=== PATIENT | male | born 1985 | race Caucasian/White ===

== ENCOUNTER 2021-12-13 18:29 | Emergency (ER) | payer OTHER ==
--- OUTSIDE RECORDS SUMMARY | 2021-12-13 18:32 | XMS REPORT | Continuity of Care Document ---
:1985 Author Organization [facility] t Address [address] [place] [address] Care Team Providers Name Role Phone Asked, No Pcp Primary Care Physician Unavailable Citlaly Harrison Attending Clinician Unavailable Physician, No Primary or Family Admitting Clinician Unavaila Bari Bauman Admitting Clinician Unavailable Payers Payer Name Policy Type Policy Number Effective Date Expiration Date S ource Problems This patient has no known problems. Allergies, Adverse Reactions, Alerts Allergy Allergy Status Severity Reaction(s) Onset Inactive Treating Comm ents Source Name Type Date Date Clinician No Known DA Active U [facility] No Known DA Active [facility] No Known DA Active U 2017-04 [facility] No Known DA Active U 2017-04 [facility] No Known DA Active U [facility] Social History Social Habit Start Date Stop Date Quantity Comments Source History of tobacco Smokes tobacco [facility] daily [facility] Alcohol intake 2019-03-01 2019-03-01 Current drinker [facility] 00:00:00 00:00:00 of [facility] (finding) Cigarettes smoked 2017-09-07 2017-09-07 [facility] current (pack per 00:00:00 00:00:00 Hospita l day) - Reported Cigarette 2017-09-07 2017-09-07 [facility] pack-years 00:00:00 00:00:00 Hospital Tobacco use and 2017-09-07 2017-09-07 [facility]user [facility] Alcohol Comment 2017-09-07 2017-09-07 "occassionally" [facility] 00:00:00 00:00:00 Hospital Sex Assigned At [birth year] [facility] 00:00:00 00:00:00 Hospital Smoking Status Start Date Stop Date Source Smokes tobacco daily 2017-09-07 00:00:00 [facility] Medications Ordered Filled Start Stop Current Ordering Indication Dosage Frequency Signature Comments Components Source Medication Medication Date Date Medication? Clinician (SIG) Name Name No known 2018-04 No No known [facility] di medications 05-[address] 09:47: s [facility] Procedures This patient has no known procedures. Plan of Care Planned Activity Planned Date Details Comments Source Future Scheduled 2021-12-05 HEPATITIS B VACCINES Met [facility] Test 05:56:35 (1 of 3 - 3-dose series) [code = HEPATITIS B VACCINES (1 of 3 - 3-dose series)] Future Scheduled 2021-12-05 COVID-19 VACCINE (#1) [facility] Test 05:56:35 [code = COVID-19 VACCINE (#1)] Future Scheduled 2021-12-05 Pneumococcal Vaccine: [facility] Test 05:56:35 Pediatrics (0 to 5 Years) and At-Risk Patients (6 to 64 Years) (1 - PCV) [code = Pneumococcal Vaccine: Pediatrics (0 to 5 Years) and At-Risk Patients (6 to 64 Years) (1 - PCV)] Future Scheduled 2021-12-05 Hepatitis C screening [facility] Test 05:56:35 (procedure) [code = 810407102] Future Scheduled 2021-12-05 INFLUENZA VACCINE Method [facility] Test 05:56:35 [code = INFLUENZA VACCINE] Encounters Start End Encounter Admission Attending Care Care Encounter Source Date/Time Date/Time Type Type Clinicians Facility Department ID 2021-08-08 2021-08-08 Emergency EM DARBY Harrison JOHN [id number] [facility] 11:41:00 12:04:00 Cit[facility] 88 [facility] 2021-08-08 2021-08-08 Emergency EM DARBY Harrison [facility] [id number] [facility] 11:41:00 12:04:00 Citlaly [id number] [facility] 2019-11-01 2019-11-01 Inpatient [facility] JOHN [id number] [facility] 12:19:00 12:37:43 45 [facility] Results This patient has no known results.
[2021-12-13 19:36] LABS: Absolute Lymphocytes (CBC) 4.3 K/uL (0.7-4.9); Hematocrit 41.6 % (39.6-49.0); Lymphocytes % 35.5 % (15.3-44.8); MCV 83.6 fL (80-100); RBC Red Blood Cell Count 4.98 M/uL (4.33-5.43)
[2021-12-13 19:39] LABS: Urine Blood Negative (Negative); Urine Glucose Trace (Negative); Urine Protein Negative (Negative); Urine Specific Gravity >=1.030 (1.005-1.030)
[2021-12-13 19:53] LABS: Albumin 3.8 g/dL (3.4-5.0); Bilirubin Total 0.2 mg/dL (0.2-1.0); Potassium 3.8 mmol/L (3.5-5.1); Protein, Total 7.7 g/dL (6.4-8.2)
[2021-12-13 19:53] LABS: Urine Bacteria <20 /HPF (<20); Urine RBC <5 /HPF (None Seen)
[2021-12-13] MEDS ORDERED: KETOROLAC 30 MG/ML INJ ONE (20:16)
[2021-12-13] MEDS ORDERED: NA CHLORIDE 0.9% 1,000 ML ONE (20:16)
--- NOTE | 2021-12-13 21:59 | RAD REPORT ---
EXAM DESCRIPTION: CTAbdomen Pelvis W Contrast - 12/13/2021 9:42 pm CLINICAL HISTORY: Abdominal pain, acute, nonlocalized COMPARISON: No comparisons TECHNIQUE: CT of the abdomen and pelvis was performed. All CT scans are performed using dose optimization technique as appropriate and may include automated exposure control or mA/KV adjustment according to patient size. FINDINGS: Lower chest: No acute abnormality. Liver: No acute abnormality or suspicious lesions. Biliary: Cholecystectomy. Stomach: No significant focal abnormality. Duodenum: No significant focal abnormality. Pancreas: No significant abnormality. Spleen: No significant abnormality. Adrenal: No suspicious lesions. Kidney/ureter: No hydronephrosis. No renal calculi. Retroperitoneum: No retroperitoneal adenopathy. Vascular: No aneurysm. Bowel: No significant focal abnormality. Peritoneum: No ascites or free air. Bladder: Grossly unremarkable. Reproductive: No adnexal masses. Bones: No acute fracture. Other: n/a IMPRESSION: No acute intra-abdominal or pelvic finding. Normal appendix.
--- NOTE | 2021-12-13 22:04 | ER ---
Nurse's Notes [facility] Name: Arsalan Campbell Age: 36 yrs Sex: Male : 1985 Arrival Date: 12/13/2021 Time: 18:31 Bed 12 Private MD: Diagnosis: Abdominal pain, unspecified Presentation: 12/13 18:34 Chief complaint: Patient states: abdominal pain that started this morning, 5/ 10 pain. kr3 Coronavirus screen: Vaccine status: Patient reports being unvaccinated. Client denies travel out of the [place] in the last 14 days. Ebola Screen: Patient denies travel to an Ebola-affected area in the 21 days before illness onset. Initial Sepsis Screen: Does the patient meet any 2 criteria? No. Patient's initial sepsis screen is negative. Does the patient have a suspected source of infection? Yes: Acute abdominal pain. Risk Assessment: Do you want to hurt yourself or someone else? Patient reports no desire to harm self or others. Onset of symptoms was December 13, 2021. 18:34 Method Of Arrival: Ambulatory kr3 18:34 Acuity: BURKE 3 kr3 Triage Assessment: 18:38 General: Appears in no apparent distress. comfortable, Behavior is calm, cooperative, kr3 appropriate for age. Pain: Complains of pain in abdomen Pain currently is 5 out of 10 on a pain scale. Quality of pain is described as squeezing. 18:39 GI: Abdomen is round non-distended. kr3 Historical: - Allergies: 18:37 No Known Allergies; kr3 - PSHx: 18:37 Cholecystectomy; hernia repair; kr3 - Immunization history:: Adult Immunizations not up to date, Client reports having NOT received the Covid vaccine. - Social history:: Smoking status: Patient reports the use of cigarette tobacco products, smokes one pack cigarettes per day. Screenin:28 Abuse screen: Denies threats or abuse. Denies injuries from another. Nutritional hb screening: No deficits noted. Tuberculosis screening: No symptoms or risk factors identified. Fall Risk None identified. Assessment: 19:29 General: Appears in no apparent distress. Behavior is calm, cooperative. Pain: Pain hb currently is 8 out of 10 on a pain scale. Neuro: Level of Consciousness is awake, alert, obeys commands, Oriented to person, place, time, situation. Cardiovascular: Patient's skin is warm and dry. Respiratory: Respiratory effort is even, unlabored, Respiratory pattern is regular, symmetrical. GI: Reports upper abdominal pain, nausea. : No signs and/or symptoms were reported regarding the genitourinary system. EENT: No signs and/or symptoms were reported regarding the EENT system. Derm: Skin is pink, warm \T\ dry. Musculoskeletal: No signs and/or symptoms reported regarding the musculoskeletal system. 19:52 Reassessment: pt finished contrast CT notified. bb 21:02 Reassessment: Patient appears in no apparent distress at this time. Patient and/or hb family updated on plan of care and expected duration. Pain level reassessed. Patient is alert, oriented x 3, equal unlabored respirations, skin warm/dry/pink. 22:00 Reassessment: Patient appears in no apparent distress at this time. Patient and/or hb family updated on plan of care and expected duration. Pain level reassessed. Patient is alert, oriented x 3, equal unlabored respirations, skin warm/dry/pink. Vital Signs: 18:34 BP 153 / 98; Pulse 95; Resp 18; Temp 97.3; Pulse Ox 100% on R/A; Weight 102.06 kg; kr3 Height 5 ft. 6 in. (167.64 cm); Pain 5/10; 22:00 BP 148 / 80; Pulse 81; Resp 16; Pulse Ox 99% on R/A; hb 18:34 Body Mass Index 36.32 (102.06 kg, 167.64 cm) kr3 ED Course: 18:31 Patient arrived in ED. rg4 18:37 Triage completed. kr3 18:39 Arm band placed on right wrist. kr3 18:47 Romy Romero FNP-C is PHCP. snw 18:47 Francisco Roman MD is Attending Physician. snw 19:26 Inserted saline lock: 20 gauge in right antecubital area, using aseptic technique. hb Blood collected. 19:28 Patient has correct armband on for positive identification. hb 19:52 Nara Bell, VANESSA is Primary Nurse. bb 21:44 CT Abd/Pelvis - PO and IV Contrast In Process Unspecified. EDMS 22:28 No provider procedures requiring assistance completed. IV discontinued, intact, hb bleeding controlled, No redness/swelling at site. Administered Medications: 20:11 Drug: NS 0.9% 1000 ml Route: IV; Rate: 125 ml/hr; Site: right antecubital; bb 20:11 Drug: Ketorolac 15 mg Route: IVP; Site: right antecubital; bb Medication: 19:29 VIS not applicable for this client. hb Outcome: 22:03 Discharge ordered by MD. recinos 22:28 Discharged to home ambulatory. hb 22:28 Condition: stable 22:28 Discharge instructions given to patient, Instructed on discharge instructions, follow up and referral plans. medication usage, Demonstrated understanding of instructions, follow-up care, medications, Prescriptions given X 1. 22:31 Patient left the ED. Signatures: Dispatcher [employer] EDMS Romy Romero, TALENT ACQUISITION SOURCER-C TALENT ACQUISITION SOURCER-Csnw Nraa Bell RN RN Tanesha Iverson RN RN Tresa Mathews4 Gena Erwin RN RN kr3 Corrections: (The following items were deleted from the chart) 18:38 18:37 PSHx: Repair of inguinal hernia; kr3 kr3
--- NOTE | 2021-12-13 22:04 | EDPHYS ---
Physician Documentation [facility] Name: Arsalan Campbell Age: 36 yrs Sex: Male : 1985 Arrival Date: 12/13/2021 Time: 18:31 Bed 12 Private MD: ED Physician Francisco Roman HPI: 12/13 20:49 This 36 yrs old Male presents to ER via Ambulatory with complaints of Abdominal Pain. snw 20:49 The patient presents with abdominal pain in the periumbilical area. right lower snw quadrant. Onset: The symptoms/episode began/occurred gradually, 2 day(s) ago, and became worse and became persistent. The symptoms do not radiate. Associated signs and symptoms: none. The symptoms are described as "squeezing". Severity of pain: At its worst the pain was moderate. The patient has not experienced similar symptoms in the past. The patient has not recently seen a physician. Historical: - Allergies: 18:37 No Known Allergies; kr3 - PSHx: 18:37 Cholecystectomy; hernia repair; kr3 - Immunization history:: Adult Immunizations not up to date, Client reports having NOT received the Covid vaccine. - Social history:: Smoking status: Patient reports the use of cigarette tobacco products, smokes one pack cigarettes per day. ROS: 20:49 Constitutional: Negative for fever, chills, and weight loss, Eyes: Negative for injury, snw pain, redness, and discharge, ENT: Negative for injury, pain, and discharge, Neck: Negative for injury, pain, and swelling, Cardiovascular: Negative for chest pain, palpitations, and edema, Respiratory: Negative for shortness of breath, cough, wheezing, and pleuritic chest pain, Back: Negative for injury and pain, : Negative for injury, bleeding, discharge, and swelling, MS/Extremity: Negative for injury and deformity, Skin: Negative for injury, rash, and discoloration, Neuro: Negative for headache, weakness, numbness, tingling, and seizure, Psych: Negative for depression, anxiety, suicide ideation, homicidal ideation, and hallucinations. 20:49 Abdomen/GI: Positive for abdominal pain, Negative for nausea, vomiting, and diarrhea. Exam: 20:48 Constitutional: This is a well developed, well nourished patient who is awake, alert, snw and in no acute distress. Head/Face: Normocephalic, atraumatic. Eyes: Pupils equal round and reactive to light, extra-ocular motions intact. Lids and lashes normal. Conjunctiva and sclera are non-icteric and not injected. Cornea within normal limits. Periorbital areas with no swelling, redness, or edema. ENT: Nares patent. No nasal discharge, no septal abnormalities noted. Tympanic membranes are normal and external auditory canals are clear. Oropharynx with no redness, swelling, or masses, exudates, or evidence of obstruction, uvula midline. Mucous membranes moist. Neck: Trachea midline, no thyromegaly or masses palpated, and no cervical lymphadenopathy. Supple, full range of motion without nuchal rigidity, or vertebral point tenderness. No Meningismus. Chest/axilla: Normal chest wall appearance and motion. Nontender with no deformity. No lesions are appreciated. Cardiovascular: Regular rate and rhythm with a normal S1 and S2. No gallops, murmurs, or rubs. Normal PMI, no JVD. No pulse deficits. Respiratory: Lungs have equal breath sounds bilaterally, clear to auscultation and percussion. No rales, rhonchi or wheezes noted. No increased work of breathing, no retractions or nasal flaring. Back: No spinal tenderness. No costovertebral tenderness. Full range of motion. Skin: Warm, dry with normal turgor. Normal color with no rashes, no lesions, and no evidence of cellulitis. MS/ Extremity: Pulses equal, no cyanosis. Neurovascular intact. Full, normal range of motion. Neuro: Awake and alert, GCS 15, oriented to person, place, time, and situation. Cranial nerves II-XII grossly intact. Motor strength 5/5 in all extremities. Sensory grossly intact. Cerebellar exam normal. Normal gait. Psych: Awake, alert, with orientation to person, place and time. Behavior, mood, and affect are within normal limits. 20:48 Abdomen/GI: Inspection: abdomen appears normal, Bowel sounds: diminished, Palpation: moderate abdominal tenderness, in the right lower quadrant. Vital Signs: 18:34 BP 153 / 98; Pulse 95; Resp 18; Temp 97.3; Pulse Ox 100% on R/A; Weight 102.06 kg; kr3 Height 5 ft. 6 in. (167.64 cm); Pain 5/10; 22:00 BP 148 / 80; Pulse 81; Resp 16; Pulse Ox 99% on R/A; hb 18:34 Body Mass Index 36.32 (102.06 kg, 167.64 cm) kr3 MDM: 19:21 Patient medically screened. snw 22:01 Data reviewed: vital signs, nurses notes, lab test result(s), radiologic studies. Data snw interpreted: Pulse oximetry: on room air is 100 %. Interpretation: normal. Counseling: I had a detailed discussion with the patient and/or guardian regarding: the historical points, exam findings, and any diagnostic results supporting the discharge/admit diagnosis, the presence of at least one elevated blood pressure reading (>120/80) during this emergency department visit, lab results, radiology results, the need for outpatient follow up, for definitive care. Response to treatment: the patient's symptoms have mildly improved after treatment. Special discussion: Based on the history and exam findings, there is no indication for further emergent testing or inpatient evaluation. I discussed with the patient/guardian the need to see the primary care provider for further evaluation of the symptoms. 12/13 18:52 Order name: Urine Microscopic Only; Complete Time: 20:10 snw 12/13 18:52 Order name: CBC with Diff; Complete Time: 19:38 snw 12/13 18:52 Order name: CMP; Complete Time: 20: snw 12/13 18:52 Order name: Lipase; Complete Time: 20: snw 12/13 19:39 Order name: Urine Dipstick-Ancillary; Complete Time: 19:39 EDMS 12/13 18:52 Order name: Urine Dipstick-Ancillary (obtain specimen); Complete Time: 19:28 snw 12/13 18:52 Order name: IV Saline Lock; Complete Time: 19:28 snw 12/13 18:52 Order name: Labs collected and sent; Complete Time: 19:28 snw 12/13 19:39 Order name: CT Abd/Pelvis - PO and IV Contrast; Complete Time: 22:00 snw 12/13 19:57 Order name: Urine Culture EDMS Administered Medications: 20:11 Drug: NS 0.9% 1000 ml Route: IV; Rate: 125 ml/hr; Site: right antecubital; bb 20:11 Drug: Ketorolac 15 mg Route: IVP; Site: right antecubital; bb Disposition Summary: 12/13/21 22:03 Discharge Ordered Location: Home snw Condition: Stable snw Diagnosis - Abdominal pain, unspecified snw Followup: snw - With: Private Physician - When: 2 - 3 days - Reason: Recheck today's complaints, Continuance of care, Re-evaluation by your physician Followup: snw - With: Emergency Department - When: As needed - Reason: Worsening of condition Discharge Instructions: - Discharge Summary Sheet snw - Abdominal Pain, Adult snw - Pain Without a Known Cause snw - Gas and Gas Pains, Pediatric snw Forms: - Work release form snw - Medication Reconciliation Form snw - Thank You Letter snw - Antibiotic Education snw - Prescription Opioid Use snw Prescriptions: - dicyclomine 20 mg Oral Tablet - take 1 tablet by ORAL route 3 times per day; 21 tablet; Refills: 0, Product snw Selection Permitted Signatures: Dispatcher [employer] EDMS Romy Romero FNP-C GAS MAKER HELPER-Csnw Nara Bell, RN RN Gena Castellanos RN RN kr3 Corrections: (The following items were deleted from the chart) 18:38 18:37 PSHx: Repair of inguinal hernia; kr3 kr3
[2021-12-14 02:08] VITALS: TEMP 97.3
[2021-12-14 02:10] VITALS: BP 148/80; O2SAT 99
== END 2021-12-13 22:31 | disposition home or self-care (01) ==
LOC: ER 18:29
DX: R10.31 Right lower quadrant pain (principal); F17.210 Nicotine dependence, cigarettes, uncomplicated
CPT/HCPCS: 87088; 85025; 87086; 36415; 83690; 80053; 74177; 96374; 99284; Q9967; J7030; 81003; 81015

== ENCOUNTER 2022-03-04 17:11 | Emergency (ER) | payer OTHER ==
--- OUTSIDE RECORDS SUMMARY | 2022-03-04 17:13 | XMS REPORT | Continuity of Care Document ---
:1985 Author Organization [facility] t Address [address] [place] [address] Care Team Providers Name Role Phone Asked, [...] Date Clinician No Known DA Active U [facility] No Known DA Active [facility] No Known DA Active U 2017-04 [facility] No [facility] Social History Social Habit Start Date Stop Date Quantity Comments Source History of tobacco Cigarette Smoker [facility] Alcohol intake 2019-03-01 2019-03-01 Current drinker [facility] 00:00:00 00:00:00 [facility] alcohol Hospital (finding) Tobacco use and 2017-09-07 2017-09-07 Smokeless tobacco [facility] exposure 00:00:00 00:00:00 non-user Hospital Cigarettes smoked 2017-09-07 2017-[facility]-07 [facility]pack per 00:00:00 00:00:00 [facility]ospita l day) - Reported Cigarette 2017-09-07 2017-09-07 [facility] pack-years 00:00:00 00:00:00 Hospital Alcohol Comment 2017-09-07 2017-09-07 "occassionally" [facility] 00:00:00 00:00:00 Hospital Sex Assigned At [birth year] [facility] 00:00:00 00:00:00 Hospital Smoking Status Start Date Stop Date Source Smokes tobacco daily 2017-09-07 00:00:00 [facility] Medications Ordered Filled Start Stop Current Ordering Indication Dosage Frequency Signature Comments Components Source Medication Medication Date Date Medication? Clinician (SIG) Name Name No known 2018-04 No No known [facility] medications -[address] 09:47: s [facility] No known 2018-04 No No known [facility] medications -[address] 09:47: s [facility] Procedures This patient has no known procedures. Plan of Care Planned Activity Planned Date Details Comments Source Future Scheduled 2022-02-07 HEPATITIS B VACCINES Met [facility] Test 09:18:09 (1 of 3 - 3-dose series) [code = HEPATITIS B VACCINES (1 of 3 - 3-dose series)] Future Scheduled 2022-02-07 COVID-19 VACCINE (#1) [facility] Test 09:18:09 [code = COVID-19 VACCINE (#1)] Future Scheduled 2022-02-07 Pneumococcal Vaccine: [facility] Test 09:18:09 Pediatrics (0 to 5 Years) and At-Risk Patients (6 to 64 Years) (1 - PCV) [code = Pneumococcal Vaccine: Pediatrics (0 to 5 Years) and At-Risk Patients (6 to 64 Years) (1 - PCV)] Future Scheduled 2022-02-07 Hepatitis C screening [facility] Test 09:18:09 (procedure) [code = [id number]] Future Scheduled 2022-02-07 INFLUENZA VACCINE Method [facility] Test 09:18:09 [code = INFLUENZA VACCINE] Future Scheduled 2021-12-05 HEPATITIS B VACCINES Met [facility] Test 05:56:35 (1 of 3 - 3-dose series) [code = HEPATITIS B VACCINES (1 of 3 - 3-dose series)] Future Scheduled 2021-12-05 COVID-19 VACCINE (#1) [facility] Test 05:56:35 [code = COVID-19 VACCINE (#1)] Future Scheduled 2021-12-05 Pneumococcal Vaccine: [facility] Test 05:56:35 Pediatrics (0 to 5 Years) and At-Risk Patients (6 to 64 Years) (1 - PCV) [code = Pneumococcal Vaccine: Pediatrics (0 to 5 Years) and At-Risk Patients (6 to 64 Years) (1 - PCV)] Future Scheduled 2021-12-05 Hepatitis C screening [facility] Test 05:56:35 (procedure) [code = [id number]] Future Scheduled 2021-12-05 INFLUENZA VACCINE Method [facility] Test 05:56:35 [code = INFLUENZA VACCINE] Encounters Start End Encounter Admission Attending Care Care Encounter Source Date/Time Date/Time Type Type Clinicians Facility Department ID 2021-08-08 2021-08-08 Emergency MIRTHA Harrison DARBY LOPEZ [id number] [facility] 11:41:00 12:04:00 Cit[facility] 88 [facility] 2021-08-08 2021-08-08 Emergency MIRTHA Harrison [facility] [id number] [facility] 11:41:00 12:04:00 Citlaly [id number] [facility] 2019-11-01 2019-11-01 Inpatient [facility] JOHN [id number] [facility] 12:19:00 12:37:43 45 [facility] Results This patient has no known results.
--- NOTE | 2022-03-04 17:29 | ER ---
Nurse's Notes [facility] Name: Arsalan Campbell Age: 36 yrs Sex: Male : 1985 Arrival Date: 03/04/2022 Time: 17:11 Bed 12 Private MD: Diagnosis: Dental caries, unspecified Presentation: 03/04 17:16 Chief complaint: Patient states: Bilateral tooth pains: L upper jaw and R lower jaw ll1 pain for 1 month. Coronavirus screen: Vaccine status: Patient reports being unvaccinated. Client denies travel out of the [place] in the last 14 days. At this time, the client does not indicate any symptoms associated with coronavirus-19. Ebola Screen: Patient denies travel to an Ebola-affected area in the 21 days before illness onset. Initial Sepsis Screen: Does the patient meet any 2 criteria? No. Patient's initial sepsis screen is negative. Does the patient have a suspected source of infection? Yes: Other: tooth infection. Risk Assessment: Do you want to hurt yourself or someone else? Patient reports no desire to harm self or others. Onset of symptoms was February 01, 2022. 17:16 Method Of Arrival: Ambulatory ll1 17:16 Acuity: BURKE 4 ll1 Triage Assessment: 17:17 General: Appears in no apparent distress. Behavior is calm, cooperative, appropriate ll1 for age. Pain: Complains of pain in teeth Pain currently is 10 out of 10 on a pain scale. Quality of pain is described as aching, throbbing, Pain began 1 month. EENT: Reports pain teeth, both sides. Historical: - Allergies: 17:15 No Known Allergies; ll1 - PMHx: 17:15 None; ll1 - PSHx: 17:15 Cholecystectomy; hernia repair; ll1 - Immunization history:: Client reports having NOT received the Covid vaccine. - Social history:: Smoking status: Patient reports the use of cigarette tobacco products, smokes one pack cigarettes per day. - Family history:: not pertinent. Screenin:21 Abuse screen: Denies threats or abuse. Nutritional screening: No deficits noted. ll1 Tuberculosis screening: No symptoms or risk factors identified. Fall Risk Total Barrera Fall Scale indicates No Risk (0-24 pts). Vital Signs: 17:16 BP 139 / 102; Pulse 102; Resp 17; Temp 97.9; Pulse Ox 99% ; Weight 104.33 kg; Height 5 ll1 ft. 7 in. (170.18 cm); Pain 10/10; 17:16 Body Mass Index 36.02 (104.33 kg, 170.18 cm) ll1 ED Course: 17:11 Patient arrived in ED. am2 17:15 Rustam Connolly MD is Attending Physician. rt 17:17 Triage completed. ll1 17:17 Arm band placed on. ll1 17:21 Patient placed in an exam room, on a stretcher. ll1 17:21 Patient has correct armband on for positive identification. Bed in low position. Call ll1 light in reach. Cardiac monitoring not applicable on this patient. 17:52 Meri Goddard, RN is Primary Nurse. iw Administered Medications: 17:45 Drug: Ketorolac 30 mg Route: IM; Site: right ventrogluteal; iw Medication: 17:21 VIS not applicable for this client. ll1 Outcome: 17:29 Discharge ordered by . rt 17:53 Patient left the ED. iw Signatures: Meri Goddard, RN RN iw Archana Garg am2 Dulce Bowles RN RN ll1 Rustam Connolly MD MD rt Corrections: (The following items were deleted from the chart) 17:17 17:16 Chief complaint: Patient states: L upper jaw and R lower jaw pain for 1 month. ll1ll1
--- NOTE | 2022-03-04 17:29 | EDPHYS ---
Physician Documentation [facility] Name: Arsalan Campbell Age: 36 yrs Sex: Male : 1985 Arrival Date: 03/04/2022 Time: 17:11 Bed 12 Private MD: BRYAN Physician Rustam Connolly HPI: 03/04 17:34 This 36 yrs old Male presents to ER via Ambulatory with complaints of Toothache. rt 17:34 The patient presents with pain. Onset: The symptoms/episode began/occurred 2 month(s) rt ago. Duration: The symptoms are intermittent. Modifying factors: The symptoms are alleviated by nothing, the symptoms are aggravated by nothing. Associated signs and symptoms: The patient has no apparent associated signs or symptoms. Patient presents to the ED with an intermittent dental pain for the past 2 months, and we with ibuprofen or NyQuil. He states that the pain occasionally occurs on one side of his mouth and then occasionally occurs on the other. Patient does not currently have a dentist due to lack of insurance. Denies difficulty swallowing, other acute complaints. Symptoms are mild in severity, no other aggravating alleviating factors. Pain is aching nature, nonradiating.. Historical: - Allergies: 17:15 No Known Allergies; ll1 - PMHx: 17:15 None; ll1 - PSHx: 17:15 Cholecystectomy; hernia repair; ll1 - Immunization history:: Client reports having NOT received the Covid vaccine. - Social history:: Smoking status: Patient reports the use of cigarette tobacco products, smokes one pack cigarettes per day. - Family history:: not pertinent. ROS: 17:34 Constitutional: Negative for fever, chills, and weight loss, Eyes: Negative for injury, rt pain, redness, and discharge, Neck: Negative for injury, pain, and swelling, Cardiovascular: Negative for chest pain, palpitations, and edema, Respiratory: Negative for shortness of breath, cough, wheezing, and pleuritic chest pain, Abdomen/GI: Negative for abdominal pain, nausea, vomiting, diarrhea, and constipation, Neuro: Negative for headache, weakness, numbness, tingling, and seizure, Psych: Negative for depression, anxiety, suicide ideation, homicidal ideation, and hallucinations. 17:34 ENT: Positive for dental pain, Negative for difficulty swallowing. Exam: 17:34 Constitutional: This is a well developed, well nourished patient who is awake, alert, rt and in no acute distress. Head/Face: Normocephalic, atraumatic. Eyes: Pupils equal round and reactive to light, extra-ocular motions intact. Lids and lashes normal. Conjunctiva and sclera are non-icteric and not injected. Cornea within normal limits. Periorbital areas with no swelling, redness, or edema. Neck: Trachea midline, no thyromegaly or masses palpated, and no cervical lymphadenopathy. Supple, full range of motion without nuchal rigidity, or vertebral point tenderness. No Meningismus. Chest/axilla: Normal chest wall appearance and motion. Nontender with no deformity. No lesions are appreciated. Cardiovascular: Regular rate and rhythm with a normal S1 and S2. No gallops, murmurs, or rubs. Normal PMI, no JVD. No pulse deficits. Skin: Warm, dry with normal turgor. Normal color with no rashes, no lesions, and no evidence of cellulitis. MS/ Extremity: Pulses equal, no cyanosis. Neurovascular intact. Full, normal range of motion. Neuro: Awake and alert, GCS 15, oriented to person, place, time, and situation. Cranial nerves II-XII grossly intact. Motor strength 5/5 in all extremities. Sensory grossly intact. Cerebellar exam normal. Normal gait. Psych: Awake, alert, with orientation to person, place and time. Behavior, mood, and affect are within normal limits. 17:34 Head/face: Mucous membranes, uvula is midline, multiple dental caries noted.. Vital Signs: 17:16 BP 139 / 102; Pulse 102; Resp 17; Temp 97.9; Pulse Ox 99% ; Weight 104.33 kg; Height 5 ll1 ft. 7 in. (170.18 cm); Pain 10/10; 17:16 Body Mass Index 36.02 (104.33 kg, 170.18 cm) ll1 MDM: 17:28 Patient medically screened. rt 17:34 Differential diagnosis: dental caries, dental abscess, Retropharyngeal abscess, rt peritonsillar abscess, Tarun's angina. Data reviewed: vital signs, nurses notes. ED course: Presents to the ED with 2 months of dental pain. There is no evidence for an abscess, Tarun's angina clinically. He has multiple dental caries. Patient instructed to follow-up with a dentist. Will prescribe Magic mouthwash, Toradol. He is stable for outpatient care.. Administered Medications: 17:45 Drug: Ketorolac 30 mg Route: IM; Site: right ventrogluteal; iw Disposition Summary: 03/04/22 17:29 Discharge Ordered Location: Home rt Problem: an ongoing problem rt Symptoms: are unchanged rt Condition: Stable rt Diagnosis - Dental caries, unspecified rt Followup: rt - With: Private Physician - When: 2 - 3 days - Reason: Discharge Instructions: - Discharge Summary Sheet rt - Dental Caries, Adult rt Forms: - Medication Reconciliation Form rt - School release form ll1 - Thank You Letter rt - Antibiotic Education rt - Prescription Opioid Use rt Prescriptions: - Chlorhexidine oral rince 0.12% - wash 50 milliliter by ORAL route 2-3 times daily; 500 milliliter; Refills: 0, rt Product Selection Permitted - TORADOl 10 mg tab - take 1 tablet by ORAL route every 6 hours; 18 tablet; Refills: 0, Product rt Selection Permitted Signatures: Meri Goddard, RN RN iw Dulce Bowles RN RN ll1 Rustam Connolly MD MD rt
[2022-03-04] MEDS ORDERED: KETOROLAC 30 MG/ML INJ ONE (17:39)
[2022-03-04 18:30] VITALS: BP 139/102; TEMP 97.9; O2SAT 99
== END 2022-03-04 17:53 | disposition home or self-care (01) ==
LOC: ER 17:11
DX: K02.9 Dental caries, unspecified (principal); F17.210 Nicotine dependence, cigarettes, uncomplicated
CPT/HCPCS: 96372; 99282

== ENCOUNTER 2022-05-10 16:30 | Emergency (ER) | payer OTHER ==
--- OUTSIDE RECORDS SUMMARY | 2022-05-10 16:33 | XMS REPORT | Continuity of Care Document ---
:1985 Author Organization [facility] t Address [address] [place] [address] Care Team Providers Name Role Phone Asked, [...] DA [facility] U [facility] No Known DA [facility] No Known DA Active U 2017-04 [facility] No Known [facility] U [facility] No [facility] Social History Social Habit Start Date Stop Date Quantity Comments Source History of tobacco Cigarette Smoker [facility] Alcohol intake 2019-03-01 2019-03-01 Current drinker [facility] 00:00:00 00:00:00 of alcohol Hospital (finding) Tobacco use and 2017-09-07 2017-09-07 Smokeless tobacco [facility] exposure 00:00:00 00:00:00 non-user Hospital Cigarettes smoked 2017-09-07 2017-09-07 [facility] current (pack per 00:00:00 00:00:00 Hospita l day) - Reported Cigarette 2017-09-07 2017-09-07 [employer] pack-years 00:00:00 00:00:00 Hospital Alcohol Comment 2017-09-07 2017-09-07 "occassionally" [facility] 00:00:00 00:00:00 Hospital Sex Assigned At [birth year] [employer] 00:00:00 00:00:00 Hospital Smoking Status Start Date Stop Date Source Smokes tobacco daily 2017-09-07 00:00:00 [facility] Medications Ordered Filled Start Stop Current Ordering Indication Dosage Frequency Signature Comments Components Source Medication Medication Date Date Medication? Clinician (SIG) Name Name No known 2019- No No known [facility] medications -[address] 09:47: [facility] No known 2019 No No known [facility] medications -[address] 09:47: [facility] No known 2019- No No known [facility] medications -[address] 09:47: [facility] Procedures This patient has no known procedures. Plan of Care Planned Activity Planned Date Details Comments Source Future Scheduled 2022-03-[address] [facility] Test 21:40:31 [code = INFLUENZA VACCINE] Future Scheduled 2022-03-20 COVID-19 VACCINE (#1) [facility] Test 21:40:31 [code = COVID-19 VACCINE (#1)] Future Scheduled 2022-03-20 Pneumococcal Vaccine: [facility] Test 21:40:31 Pediatrics (0 to 5 Years) and At-Risk Patients (6 to 64 Years) (1 - PCV) [code = Pneumococcal Vaccine: Pediatrics (0 to 5 Years) and At-Risk Patients (6 to 64 Years) (1 - PCV)] Future Scheduled 2022-03-20 Hepatitis C screening [facility] Test 21:40:31 (procedure) [code = [id number]] Future Scheduled 2022-03-[address] [facility] Test 21:40:31 [code = INFLUENZA VACCINE] Future Scheduled 2022-03-20 COVID-19 VACCINE (#1) [facility] Test 21:40:31 [code = COVID-19 VACCINE (#1)] Future Scheduled 2022-03-20 Pneumococcal Vaccine: [facility] Test 21:40:31 Pediatrics (0 to 5 Years) and At-Risk Patients (6 to 64 Years) (1 - PCV) [code = Pneumococcal Vaccine: Pediatrics (0 to 5 Years) and At-Risk Patients (6 to 64 Years) (1 - PCV)] Future Scheduled 2022-03-20 Hepatitis C screening [facility] Test 21:40:31 (procedure) [code = [id number]] Future Scheduled 2022-02-07 HEPATITIS B VACCINES Met [facility] Test 09:18:09 (1 of 3 - 3-dose series) [code = HEPATITIS B VACCINES (1 of 3 - 3-dose series)] Future Scheduled 2022-02-07 COVID-19 VACCINE (#1) [facility] Test 09:18:09 [code = COVID-19 VACCINE (#1)] Future Scheduled 2022-02-07 Pneumococcal Vaccine: [facility] Test 09:18:09 Pediatrics (0 to 5 Years) and At-Risk Patients (6 to 64 Years) (1 - PCV) [code = Pneumococcal Vaccine: Pediatrics (0 to 5 Years) and At-Risk Patients (6 to 64 Years) (1 - PCV)] Future Scheduled 2022-02-07 Hepatitis C screening [facility] Test 09:18:09 (procedure) [code = [id number]] Future Scheduled 2022-02-07 INFLUENZA VACCINE Method [facility] Test 09:18:09 [code = INFLUENZA VACCINE] Future Scheduled 2021-12-[address] B VACCINES [facility] Test 05:56:35 (1 of 3 - 3-dose series) [code = HEPATITIS B VACCINES (1 of 3 - 3-dose series)] Future Scheduled 2021-12-05 COVID-19 VACCINE (#1) [facility] Test 05:56:35 [code = COVID-19 VACCINE (#1)] Future Scheduled 2021-12-05 Pneumococcal Vaccine: [facility] Test 05:56:35 Pediatrics (0 to 5 Years) and At-Risk Patients (6 to 64 Years) (1 - PCV) [code = Pneumococcal Vaccine: Pediatrics (0 to 5 Years) and At-Risk Patients (6 to 64 Years) (1 - PCV)] Future Scheduled 2021-12-05 Hepatitis C screening [facility] Test 05:56:35 (procedure) [code = [id number]] Future Scheduled 2021-12-05 INFLUENZA VACCINE Method [facility] Test 05:56:35 [code = INFLUENZA VACCINE] Encounters Start End Encounter Admission Attending Care Care Encounter Source Date/Time Date/Time Type Type Clinicians Facility Department ID 2021-08-08 2021-08-08 Emergency MIRTHA Harrison DARBY LOPEZ [id number] [facility] 11:41:00 12:04:00 [place] [facility] 2021-08-08 2021-08-08 Emergency MIRTHA HarrisonDARBY [facility] [id number] [facility] 11:41:00 12:04:00 [place] [id number] [facility] 2019-11-01 2019-11-01 Inpatient [facility] JOHN [id number] 90 [facility] 12:19:00 12:37:43 45 [facility] Results This patient has no known results.
[2022-05-10 18:21] LABS: SARS-COV-2 RT PCR NEGATIVE (NEGATIVE)
--- NOTE | 2022-05-10 18:31 | RAD REPORT ---
EXAM DESCRIPTION: RAD - Wrist Left 3 View - 05/10/2022 6:11 pm CLINICAL HISTORY: Left wrist pain status post injury FINDINGS: No fracture or dislocation is seen. If the patient continues to have symptoms to suggest an occult fracture then a followup plain film se pastora in 7 days would be recommended
--- NOTE | 2022-05-10 18:58 | ER ---
Nurse's Notes [facility] Name: Arsalan Campbell Age: 37 yrs Sex: Male : 1985 Arrival Date: 05/10/2022 Time: 16:32 Bed DIS6 Private MD: Diagnosis: Pain in left wrist;Streptococcal pharyngitis;Cough Presentation: 05/10 16:50 Chief complaint: Patient states: Sore throat for 1 week. L wrist pain since fall on ll1 Wednesday. Coronavirus screen: Vaccine status: Patient reports being unvaccinated. Client denies travel out of the [place] in the last 14 days. cough unrelated to allergies, sore throat, Client presents with at least one sign or symptom that may indicate coronavirus-19. Ebola Screen: Patient denies travel to an Ebola-affected area in the 21 days before illness onset. Initial Sepsis Screen: Does the patient meet any 2 criteria? No. Patient's initial sepsis screen is negative. Does the patient have a suspected source of infection? No. Patient's initial sepsis screen is negative. Risk Assessment: Do you want to hurt yourself or someone else? Patient reports no desire to harm self or others. Onset of symptoms was May 04, 2022. 16:50 Method Of Arrival: Ambulatory 1 16:50 Acuity: BURKE 4 ll1 Historical: - Allergies: 16:51 No Known Allergies; ll1 - PMHx: 16:51 None; ll1 - PSHx: 16:51 hernia repair; Cholecystectomy; ll1 - Immunization history:: Client reports having NOT received the Covid vaccine. - Social history:: Smoking status: Patient reports the use of cigarette tobacco products, smokes one pack cigarettes per day. Vital Signs: 16:50 BP 137 / 92; Pulse 89; Resp 17; Temp 98.6; Pulse Ox 97% ; Weight 104.78 kg; Height 5 ll1 ft. 7 in. (170.18 cm); Pain 7/10; 16:50 Body Mass Index 36.18 (104.78 kg, 170.18 cm) ll1 ED Course: 16:32 Patient arrived in ED. as 16:51 Triage completed. 1 17:14 Francisco Zhang PA is PHCP. cp 17:14 Jared Morgan MD is Attending Physician. cp 17:22 Meri Goddard, RN is Primary Nurse. iw 18:13 XRAY Wrist LEFT 3 view In Process Unspecified. EDMS 19:00 Arm band placed on. iw Administered Medications: 19:00 Drug: Ibuprofen 800 mg Route: PO; iw Outcome: 18:57 Discharge ordered by MD. cp 19:16 Discharged to home ambulatory, with family. iw 19:16 Condition: good 19:16 Discharge instructions given to patient, Instructed on discharge instructions, follow up and referral plans. medication usage, Demonstrated understanding of instructions, follow-up care, medications, Prescriptions given X 1. 19:16 Patient left the ED. iw Signatures: Dispatcher [employer] EDMS Светлана Webber as Meri Goddard, RN RN iw Francisco Zhang PA PA Dulce Benton, RN RN ll1
--- NOTE | 2022-05-10 18:58 | EDPHYS ---
Physician Documentation [facility] Name: Arsalan Campbell Age: 37 yrs Sex: Male : 1985 Arrival Date: 05/10/2022 Time: 16:32 Bed DIS6 Private MD: ED Physician Jared Morgan HPI: 05/10 17:30 This 37 yrs old Male presents to ER via Ambulatory with complaints of Sore Throat, Hand cp Pain. 17:30 The patient presents with sore throat. The patient describes throat pain as constant. cp Onset: The symptoms/episode began/occurred 1 week(s) ago. Severity of symptoms: in the emergency department the symptoms are unchanged, despite home interventions. Associated signs and symptoms: Pertinent positives: cough, Pertinent negatives dysphagia, earache, fever, flu-like symptoms, vomiting. Patient also c/o left wrist pain since fall this past Wednesday. Historical: - Allergies: 16:51 No Known Allergies; ll1 - PMHx: 16:51 None; ll1 - PSHx: 16:51 hernia repair; Cholecystectomy; ll1 - Immunization history:: Client reports having NOT received the Covid vaccine. - Social history:: Smoking status: Patient reports the use of cigarette tobacco products, smokes one pack cigarettes per day. ROS: 17:35 Constitutional: Negative for body aches, chills, fever, poor PO intake. cp 17:35 Eyes: Negative for injury, pain, redness, and discharge. cp 17:35 ENT: Positive for sinus congestion, sore throat, Negative for drainage from ear(s), ear pain, difficulty swallowing, difficulty handling secretions. 17:35 Cardiovascular: Negative for chest pain, palpitations. 17:35 Respiratory: Positive for cough, "sounds productive", Negative for shortness of breath, wheezing. 17:35 Abdomen/GI: Negative for abdominal pain, nausea, vomiting, and diarrhea. 17:35 Back: Negative for pain at rest, pain with movement. 17:35 MS/extremity: Positive for pain, tenderness, of the left wrist, Negative for decreased range of motion, deformity, paresthesias. 17:35 Neuro: Negative for altered mental status, headache. 17:35 All other systems are negative. Exam: 17:40 Constitutional: The patient appears in no acute distress, alert, awake, non-toxic, well cp developed, well nourished, overweight 17:40 Head/Face: Normocephalic, atraumatic. cp 17:40 Eyes: Periorbital structures: appear normal, Conjunctiva: normal, no exudate, no injection, Sclera: no appreciated abnormality, Lids and lashes: appear normal, bilaterally. 17:40 ENT: External ear(s): are unremarkable, Ear canal(s): are normal, clear, TM's: dullness, bilaterally, Nose: is normal, Mouth: Lips: moist, Oral mucosa: moist, Posterior pharynx: Airway: no evidence of obstruction, patent, Tonsils: bilaterally enlarged, with erythema, no exudate, Uvula: midline, erythema, that is mild, exudate, is not appreciated. 17:40 Neck: ROM/movement: is normal, is supple, no meningismus, no nuchal rigidity, Lymph nodes: lymphadenopathy is appreciated, anterior cervical nodes. 17:40 Chest/axilla: Inspection: normal. 17:40 Cardiovascular: Rate: normal, Rhythm: regular. 17:40 Respiratory: the patient does not display signs of respiratory distress, Respirations: normal, no use of accessory muscles, no retractions, labored breathing, is not present, Breath sounds: are clear throughout, no decreased breath sounds, no stridor, no wheezing. 17:40 Abdomen/GI: Inspection: abdomen appears normal, Palpation: abdomen is soft and non-tender, in all quadrants. 17:40 Back: pain, is absent, ROM is normal. 17:40 Musculoskeletal/extremity: Extremities: grossly normal except: noted in the left wrist: pain, tenderness, There is no evidence of decreased ROM, deformity, ROM: limited passive range of motion due to pain, in the left wrist, the left hand Sensation intact. Vital Signs: 16:50 BP 137 / 92; Pulse 89; Resp 17; Temp 98.6; Pulse Ox 97% ; Weight 104.78 kg; Height 5 ll1 ft. 7 in. (170.18 cm); Pain 7/10; 16:50 Body Mass Index 36.18 (104.78 kg, 170.18 cm) ll1 MDM: 17:15 Patient medically screened. cp 18:00 Differential diagnosis: group A strep tonsillitis, influenza, mononucleosis, cp peritonsillar abscess pharyngitis, retropharyngeal abcess tonsillitis, upper respiratory infection, uvulitis. 18:56 Data reviewed: vital signs, nurses notes, lab test result(s), radiologic studies, plain cp films. 18:56 I considered the following discharge prescriptions or medication management in the emergency department Medications were administered in the Emergency Department. See MAR. Independent interpretation of the following test(s) in the Emergency Department X-Ray: My interpretation is left wrist negative for fracture. Counseling: I had a detailed discussion with the patient and/or guardian regarding: the historical points, exam findings, and any diagnostic results supporting the discharge/admit diagnosis, lab results, radiology results, to return to the emergency department if symptoms worsen or persist or if there are any questions or concerns that arise at home. 05/10 17:22 Order name: Strep; Complete Time: 18:35 cp 05/10 18:35 Interpretation: Reviewed. 05/10 17:22 Order name: COVID-19/FLU A+B; Complete Time: 18:35 cp 05/10 18:36 Interpretation: Reviewed. 05/10 17:22 Order name: XRAY Wrist LEFT 3 view; Complete Time: 18:35 cp 05/10 18:35 Interpretation: Report reviewed. 05/10 18:39 Order name: Splint - Wrist; Complete Time: 19:00 cp Administered Medications: 19:00 Drug: Ibuprofen 800 mg Route: PO; iw Disposition Summary: 05/10/22 18:57 Discharge Ordered Location: Home cp Problem: new cp Symptoms: have improved cp Condition: Stable cp Diagnosis - Pain in left wrist cp - Streptococcal pharyngitis cp - Cough cp Followup: cp - With: Private Physician - When: 2 - 3 days - Reason: Worsening of condition Discharge Instructions: - Discharge Summary Sheet cp - Strep Throat, Adult cp - Wrist Pain, Adult cp - Cough, Adult cp Forms: - Medication Reconciliation Form cp - Thank You Letter cp - Antibiotic Education cp - Prescription Opioid Use cp - Work release form ls5 Prescriptions: - Bromfed DM 2-30-10 mg/5 mL Oral syrup - take 10 milliliter by ORAL route every 6 hours; 180 milliliter; Refills: 0, cp Product Selection Permitted - Amoxicillin 875 mg Oral Tablet - take 1 tablet by ORAL route every 12 hours for 10 days; 20 tablet; Refills: 0, cp Product Selection Permitted - Ibuprofen 800 mg Oral Tablet - take 1 tablet by ORAL route every 8 hours As needed take with food; 30 tablet; cp Refills: 0, Product Selection Permitted Signatures: Dispatcher [employer] Meri Souza, RN RN Francisco Thomas PA PA cp Lewis, Lynsay, RN RN ll1
[2022-05-10] MEDS ORDERED: IBUPROFEN 400 MG TAB ONE (18:59)
[2022-05-10 19:21] VITALS: BP 137/92; TEMP 98.6; O2SAT 97
== END 2022-05-10 19:16 | disposition home or self-care (01) ==
LOC: ER 16:30
DX: J02.0 Streptococcal pharyngitis (principal); R05.9 Cough, unspecified; M25.532 Pain in left wrist; F17.210 Nicotine dependence, cigarettes, uncomplicated; Z20.822 Contact with and (suspected) exposure to COVID-19
CPT/HCPCS: 87081; 0240U; 73110; 99283

== ENCOUNTER 2022-05-18 12:35 | Emergency (ER) | payer OTHER ==
--- OUTSIDE RECORDS SUMMARY | 2022-05-18 12:41 | XMS REPORT | Continuity of Care Document ---
:1985 Author Organization [facility] t Address [address] [place] [address] Care Team Providers Name Role Phone Asked, [...] DA Active U [facility] No Known DA [facility] No Known DA Active U 2017-04 [facility] No Known DA [facility] U 2017[facility] No Known [facility] Social History Social Habit Start Date Stop Date Quantity Comments Source History of tobacco [facility]igarette [facility] Alcohol intake 2019-03-01 2019-03-01 Current drinker [facility] 00:00:00 00:00:00 of alcohol Hospital (finding) Tobacco use and 2017-09-07 2017-09-07 Smokeless tobacco Me odist exposure 00:00:00 00:00:00 non-user Hospital Cigarettes smoked 2017-09-07 2017-09-07 [facility] current (pack per 00:00:00 00:00:00 Hospita l day) - Reported Cigarette 2017-09-07 2017-09-07 [facility]:00 [facility] Alcohol Comment 2017-09-07 2017-09-07 "occassionally" [facility] 00:00:00 00:00:00 Hospital Sex Assigned At [birth year] [facility] Smoking Status Start Date Stop Date Source Smokes tobacco daily 2017-09-07 00:00:00 [facility] Medications Ordered Filled Start Stop [...] Planned Date Details Comments Source Future Scheduled 2022-05-16 COVID-19 VACCINE (#1) [facility] Test 03:12:00 [code = COVID-19 VACCINE (#1)] Future Scheduled 2022-05-16 INFLUENZA VACCINE [facility] Test 03:12:00 [code = INFLUENZA VACCINE] Future Scheduled 2022-03-20 Pneumococcal Vaccine: [facility] Test 21:40:31 Pediatrics (0 to 5 Years) and At-Risk Patients (6 to 64 Years) (1 - PCV) [code = Pneumococcal Vaccine: Pediatrics (0 to 5 Years) and At-Risk Patients (6 to 64 Years) (1 - PCV)] Future Scheduled 2022-03-20 Hepatitis C screening [facility] Test 21:40:31 (procedure) [code = 766224001] Future Scheduled 2022-03-20 INFLUENZA VACCINE Method [facility] Test 21:40:31 [code = INFLUENZA VACCINE] Future Scheduled 2022-03-20 COVID-19 VACCINE (#1) [facility] Test 21:40:31 [code = COVID-19 VACCINE (#1)] Future Scheduled 2022-03-20 Pneumococcal Vaccine: [facility] Test 21:40:31 Pediatrics (0 to 5 Years) and At-Risk Patients (6 to 64 Years) (1 - PCV) [code = Pneumococcal Vaccine: Pediatrics (0 to 5 Years) and At-Risk Patients (6 to 64 Years) (1 - PCV)] Future Scheduled 2022-03-20 Hepatitis C screening [facility] Test 21:40:31 (procedure) [code = [id number]] Future Scheduled 2022-03-20 INFLUENZA VACCINE [facility] Test 21:40:31 [code = INFLUENZA VACCINE] Future Scheduled 2022-03-20 COVID-19 VACCINE (#1) [facility] Test 21:40:31 [code = COVID-19 VACCINE (#1)] Future Scheduled 2022-02-07 HEPATITIS B VACCINES Met [facility] Test 09:18:09 (1 of 3 - 3-dose series) [code = HEPATITIS B VACCINES (1 of 3 - 3-dose series)] Future Scheduled 2022-02-07 COVID-19 VACCINE (#1) [facility] Test 09:18:09 [code = COVID-19 VACCINE (#1)] Future Scheduled 2022-02-07 Pneumococcal Vaccine: [facility] Test 09:18:09 Pediatrics (0 to 5 Years) and At-Risk Patients (6 to 64 Years) (1 - PCV) [code = Pneumococcal Vaccine: Pediatrics (0 to 5 Years) and At-Risk Patients (6 to 64 Years) (1 - PCV)] Future Scheduled 2022-02-07 Hepatitis C screening [facility] Test 09:18:09 (procedure) [code = [id number]] Future Scheduled 2022-02-07 INFLUENZA VACCINE [facility] Test 09:18:09 [code = INFLUENZA VACCINE] Future Scheduled 2021-12-05 HEPATITIS B VACCINES Met [facility] Test 05:56:35 (1 of 3 - 3-dose series) [code = HEPATITIS B VACCINES (1 of 3 - 3-dose series)] Future Scheduled 2021-12-05 COVID-19 VACCINE (#1) [facility] Test 05:56:35 [code = COVID-19 VACCINE (#1)] Future Scheduled 2021-12-05 Pneumococcal Vaccine: [facility] Test 05:56:35 Pediatrics (0 to 5 Years) and At-Risk Patients (6 to 64 Years) (1 - PCV) [code = Pneumococcal Vaccine: Pediatrics (0 to 5 Years) and At-Risk Patients (6 to 64 Years) (1 - PCV)] Future Scheduled 2021-12-05 Hepatitis C screening [facility] Test 05:56:35 (procedure) [code = [id number]] Future Scheduled 2021-12-05 INFLUENZA VACCINE [facility] Test 05:56:35 [code = INFLUENZA VACCINE] Encounters Start End Encounter Admission Attending Care Care Encounter Source Date/Time Date/Time Type Type Clinicians Facility Department ID 2021-08-08 2021-08-08 Emergency MIRTHA HarrisonDARBY [id number] [facility] 11:41:00 12:04:00 [place] 88 [facility] 2021-08-08 2021-08-08 Emergency MIRTHA HarrisonDARBY [facility] [id number] -[id number] [facility] 11:41:00 12:04:00 [place] [id number] [facility] 2019-11-01 2019-11-01 Inpatient [facility] JOHN [id number] 90 [facility] 12:19:00 12:37:43 45 [facility] Results This patient has no known results.
[2022-05-18 14:25] LABS: SARS-COV-2 RT PCR NEGATIVE (NEGATIVE)
--- NOTE | 2022-05-18 14:37 | ER ---
Nurse's Notes [facility] Name: Arsalan Campbell Age: 37 yrs Sex: Male : 1985 Arrival Date: 05/18/2022 Time: 12:39 Bed DIS7 Private MD: Diagnosis: Acute upper respiratory infection, unspecified Presentation: 05/18 13:43 Chief complaint: Patient states: runny nose, cough, and sneezing since Wednesday, no known 3 fever. Coronavirus screen: Vaccine status: Patient reports receiving the 2nd dose of the covid vaccine. Ebola Screen: No symptoms or risks identified at this time. Onset: The symptoms/episode began/occurred gradually, yesterday. Anaphylaxis evaluation, no signs or symptoms of anaphylaxis were noted. Initial Sepsis Screen: Does the patient meet any 2 criteria? No. Patient's initial sepsis screen is negative. Does the patient have a suspected source of infection? No. Patient's initial sepsis screen is negative. Risk Assessment: Do you want to hurt yourself or someone else? Patient reports no desire to harm self or others. Onset of symptoms was May 17, 2022. 13:43 Method Of Arrival: Ambulatory [facility] 13:43 Acuity: BURKE 4 eh3 Triage Assessment: 13:45 General: Appears in no apparent distress. comfortable, Behavior is calm, cooperative, eh3 appropriate for age. Pain: Denies pain. EENT: Reports nasal congestion nasal discharge. Neuro: Level of Consciousness is awake, alert, obeys commands, Oriented to person, place, time, situation. Cardiovascular: Capillary refill < 3 seconds Patient's skin is warm and dry. Respiratory: Reports cough that is productive, Airway is patent Respiratory effort is even, unlabored, Respiratory pattern is regular, symmetrical. GI: No signs and/or symptoms were reported involving the gastrointestinal system. Abdomen is round non-distended. : No signs and/or symptoms were reported regarding the genitourinary system. Derm: No signs and/or symptoms reported regarding the dermatologic system. Skin is pink, warm \T\ dry. Musculoskeletal: No signs and/or symptoms reported regarding the musculoskeletal system. Circulation, motion, and sensation intact. Range of motion: intact in all extremities. Historical: - Allergies: 13:45 No Known Allergies; eh3 - PSHx: 13:45 Cholecystectomy; hernia repair; 3 - Immunization history:: Adult Immunizations up to date. - Social history:: Smoking status: Patient reports the use of cigarette tobacco products, smokes one pack cigarettes per day. Patient uses alcohol, occasionally. Screenin:46 [facility] ED Fall Risk Assessment (Adult) Score/Fall Risk Level 0 - 2 = Low Risk. Abuse eh3 screen: Denies threats or abuse. Denies injuries from another. Nutritional screening: No deficits noted. Tuberculosis screening: No symptoms or risk factors identified. Assessment: 13:46 Reassessment: No changes from previously documented assessment. See triage assessment. eh3 Respiratory: Airway is patent Respiratory effort is even, unlabored, Respiratory pattern is regular, symmetrical, Breath sounds are clear bilaterally. Vital Signs: 13:43 BP 136 / 92; Pulse 85; Resp 18; Temp 98.3(O); Pulse Ox 98% on R/A; eh3 ED Course: 12:39 Patient arrived in ED. as 12:39 [facility] 12:39 Mitul Harrington MD is Attending Physician. [facility] 13:07 Stacia Jung, VANESSA is Primary Nurse. 3 13:44 Triage completed. eh3 13:45 Arm band placed on. eh3 13:46 Patient has correct armband on for positive identification. eh3 13:47 COVID-19/FLU A+B/RSV Sent. eh3 14:59 No provider procedures requiring assistance completed. Patient did not have IV access eh3 during this emergency room visit. Administered Medications: No medications were administered Medication: 14:59 VIS not applicable for this client. 3 Outcome: 14:37 Discharge ordered by . [facility] 14:59 Discharged to home ambulatory, with family. eh3 14:59 Condition: stable 14:59 Discharge instructions given to patient, family, Instructed on discharge instructions, follow up and referral plans. medication usage, Demonstrated understanding of instructions, follow-up care, medications, Prescriptions given X 1. 14:59 Patient left the ED. 3 Signatures: Светлана Webber as Stacia Jung, VANESSA RN 3 Lynn Giron FNP PHOTOGRAPHER LITHOGRAPHIC [facility]
--- NOTE | 2022-05-18 14:38 | EDPHYS ---
Physician Documentation [facility] Name: Arsalan Campbell Age: 37 yrs Sex: Male : 1985 Arrival Date: 05/18/2022 Time: 12:39 Bed DIS7 Private MD: ED Physician Mitul Harrington HPI: 05/18 13:45 This 37 yrs old Male presents to ER via Ambulatory with complaints of Sneezing, Runny jh7 Nose, Cough. 13:45 Onset: The symptoms/episode began/occurred yesterday. Associated signs and symptoms: jh7 Pertinent negatives: abdominal pain, chest pain, shortness of breath, sore throat, vomiting. Historical: - Allergies: 13:45 No Known Allergies; eh3 - PSHx: 13:45 Cholecystectomy; hernia repair; eh3 - Immunization history:: Adult Immunizations up to date. - Social history:: Smoking status: Patient reports the use of cigarette tobacco products, smokes one pack cigarettes per day. Patient uses alcohol, occasionally. ROS: 13:45 Constitutional: Negative for fever, chills, and weight loss, Eyes: Negative for injury, jh7 pain, redness, and discharge, Neck: Negative for injury, pain, and swelling, Cardiovascular: Negative for chest pain, palpitations, and edema, Abdomen/GI: Negative for abdominal pain, nausea, vomiting, diarrhea, and constipation, Skin: Negative for injury, rash, and discoloration, Neuro: Negative for headache, weakness, numbness, tingling, and seizure. 13:45 ENT: Positive for nasal discharge. 13:45 Respiratory: Positive for 13:45 All other systems are negative. Exam: 13:45 Constitutional: This is a well developed, well nourished patient who is awake, alert, jh7 and in no acute distress. Head/Face: Normocephalic, atraumatic. Eyes: Pupils equal round and reactive to light, extra-ocular motions intact. Lids and lashes normal. Conjunctiva and sclera are non-icteric and not injected. Cornea within normal limits. Periorbital areas with no swelling, redness, or edema. Neck: Trachea midline, no thyromegaly or masses palpated, and no cervical lymphadenopathy. Supple, full range of motion without nuchal rigidity, or vertebral point tenderness. No Meningismus. Cardiovascular: Regular rate and rhythm with a normal S1 and S2. No gallops, murmurs, or rubs. Normal PMI, no JVD. No pulse deficits. Respiratory: Lungs have equal breath sounds bilaterally, clear to auscultation and percussion. No rales, rhonchi or wheezes noted. No increased work of breathing, no retractions or nasal flaring. Abdomen/GI: Soft, non-tender, with normal bowel sounds. No distension or tympany. No guarding or rebound. No evidence of tenderness throughout. Skin: Warm, dry with normal turgor. Normal color with no rashes, no lesions, and no evidence of cellulitis. Neuro: Awake and alert, GCS 15, oriented to person, place, time, and situation. Normal gait. 13:45 ENT: TM's: are normal, Nose: nasal drainage, and is seen coming from both nares, that is clear, Posterior pharynx: post nasal drainage. Vital Signs: 13:43 BP 136 / 92; Pulse 85; Resp 18; Temp 98.3(O); Pulse Ox 98% on R/A; eh3 MDM: 13:10 Patient medically screened. [facility] 14:35 Differential diagnosis: viral Infection, URI, bronchitis. Data reviewed: vital signs, [facility] nurses notes. Historians other than the Patient: Spouse/Significant Other: . Counseling: I had a detailed discussion with the patient and/or guardian regarding: the historical points, exam findings, and any diagnostic results supporting the discharge/admit diagnosis, to return to the emergency department if symptoms worsen or persist or if there are any questions or concerns that arise at home. 05/18 12:43 Order name: COVID-19/FLU A+B/RSV [facility] 05/18 14:26 Order name: COVID-19/FLU A+B/RSV; Complete Time: 14:33 EDMS Administered Medications: No medications were administered Disposition: 05/19 07:11 Co-signature as Attending Physician, Mitul Harrington MD I reviewed the patient's care rn provided by the Advanced Practice Provider and agree with the diagnosis and treatment plan. Disposition Summary: 05/18/22 14:37 Discharge Ordered Location: Home [facility] Problem: new [facility] Symptoms: are unchanged [facility] Condition: Stable [facility] Diagnosis - Acute upper respiratory infection, unspecified [facility] Followup: [facility] - With: Private Physician - When: 2 - 3 days - Reason: Recheck today's complaints Discharge Instructions: - Discharge Summary Sheet [facility] - Upper Respiratory Infection, Adult [facility] - Viral Respiratory Infection [facility] Forms: - Medication Reconciliation Form [facility] - Work release form [facility] - Thank You Letter [facility] Prescriptions: - Bromfed DM 2-30-10 mg/5 mL Oral syrup - take 10 milliliter by ORAL route every 4 hours As needed; 240 milliliter; [facility] Refills: 0, Product Selection Permitted Signatures: Dispatcher [employer] EDMitul Pérez MD MD rn SebekaStacia RN RN [facility] Lynn Giron FNP [place] [id number]
[2022-05-18 15:16] VITALS: BP 136/92; TEMP 98.3; O2SAT 98
== END 2022-05-18 14:59 | disposition home or self-care (01) ==
LOC: ER 12:35
DX: J06.9 Acute upper respiratory infection, unspecified (principal); F17.210 Nicotine dependence, cigarettes, uncomplicated; Z20.822 Contact with and (suspected) exposure to COVID-19
CPT/HCPCS: 0241U; 99283

== ENCOUNTER 2022-09-07 03:18 | Emergency (ER) | payer OTHER ==
--- OUTSIDE RECORDS SUMMARY | 2022-09-07 03:21 | XMS REPORT | Continuity of Care Document ---
:1985 Author Organization [facility] t Address [address] [facility] [address] [place] [id number] Care Team Providers Name Role Phone Asked, [...] Date Clinician No Known DA Active U 2020-0 [facility] [place] [facility] No Known DA Active U [facility] [place] [facility] No Known DA Active U 2017- [facility] No Known DA Active U 2017- [facility] [place] No Known DA Active U 2017- [facility] [place] [facility] Social History Social Habit Start Date Stop Date Quantity Comments Source History of tobacco Cigarette Smoker [facility] identity [facility] Sexual orientation [facility] History of Social 2019-03-01 2019-03-[address] function 00:00:00 00:00:00 Hospital Alcohol intake 2019-03-01 2019-03-01 Current drinker [facility] dist 00:00:00 00:00:00 of alcohol Hospital (finding) Tobacco use and 2017-09-07 2017-09-07 Smokeless [facility]anism exposure 00:00:00 00:00:00 tobacco non-user Hospital Alcohol Comment 2017-09-07 2017-09-07 "occassionally" [facility] odist 00:00:00 00:00:00 Hospital Cigarettes smoked 2017-09-07 2017-09-07 [facility] current (pack per 00:00:00 00:00:00 Hospita l day) - Reported Cigarette 2017-09-07 2017-09-07 [facility] pack-years 00:00:00 00:00:00 Hospital Sex Assigned At [birth year] [facility] 00:00:00 00:00:00 Hospital Smoking Status Start Date Stop Date Source Smokes tobacco daily 2017-09-07 00:00:00 [facility] Medications Ordered Filled Start Stop Current Ordering Indication Dosage Frequency Signature Comments Components Source Medication Medication Date Date Medication? Clinician (SIG) Name Name No known 2018-04 No No known Metho di medications - medication [facility] 09:47: [facility] No known 2018-04 No No known [facility] medications - medication [facility] 09:[facility] No known 2018- No No known [facility] medications -[address] 09:47: [facility] Procedures This patient has no known procedures. Plan of Care Planned Activity Planned Date Details Comments Source Future Scheduled 2022-07-04 COVID-19 VACCINE (#1) [facility] Test 04:29:37 [code = COVID-19 VACCINE (#1)] Future Scheduled 2022-07-04 INFLUENZA VACCINE Method [facility] Test 04:29:37 [code = INFLUENZA VACCINE] Future Scheduled 2022-05-16 COVID-19 VACCINE (#1) [facility] Test 03:12:00 [code = COVID-19 VACCINE (#1)] Future Scheduled 2022-05-16 INFLUENZA VACCINE Method [facility] Test 03:12:00 [code = INFLUENZA VACCINE] Future Scheduled 2022-03-20 COVID-19 VACCINE (#1) [facility] Test 21:40:31 [code = COVID-19 VACCINE (#1)] Future Scheduled 2022-03-20 Pneumococcal Vaccine: [facility] Test 21:40:31 Pediatrics (0 to 5 Years) and At-Risk Patients (6 to 64 Years) (1 - PCV) [code = Pneumococcal Vaccine: Pediatrics (0 to 5 Years) and At-Risk Patients (6 to 64 Years) (1 - PCV)] Future Scheduled 2022-03-20 Hepatitis C screening [facility] Test 21:40:31 (procedure) [code = [id number]] Future Scheduled 2022-03-20 INFLUENZA VACCINE Method [facility] Test 21:40:31 [code = INFLUENZA VACCINE] Future Scheduled 2022-03-20 COVID-19 VACCINE (#1) [facility] Test 21:40:31 [code = COVID-19 VACCINE (#1)] Future Scheduled 2022-03-20 Pneumococcal Vaccine: [facility] Test 21:40:31 Pediatrics (0 to 5 Years) and At-Risk Patients (6 to 64 Years) (1 - PCV) [code = Pneumococcal Vaccine: Pediatrics (0 to 5 Years) and At-Risk Patients (6 to 64 Years) (1 - PCV)] Future Scheduled 2022-03-20 Hepatitis C screening [facility] Test 21:40:31 (procedure) [code = [id number]] Future Scheduled 2022-03-20 INFLUENZA VACCINE Method [facility] Test 21:40:31 [code = INFLUENZA VACCINE] Future Scheduled 2022-02-07 HEPATITIS B VACCINES [facility] Test 09:18:09 (1 of 3 - 3-dose series) [code = HEPATITIS B VACCINES (1 of 3 - 3-dose series)] Future Scheduled 2022-02-07 COVID-19 VACCINE (#1) [facility] Test 09:18:09 [code = COVID-19 VACCINE (#1)] Future Scheduled 2022-02-07 Pneumococcal Vaccine: [facility] Test 09:18:09 Pediatrics (0 to 5 Years) and At-Risk Patients (6 to 64 Years) (1 - PCV) [code = Pneumococcal Vaccine: Pediatrics (0 to 5 Years) and At-Risk Patients (6 to 64 Years) (1 - PCV)] Future Scheduled 2022-02-07 Hepatitis C screening [facility] Test 09:18:09 (procedure) [code = [id number]] Future Scheduled 2022-02-07 INFLUENZA VACCINE [facility] Test 09:18:09 [code = INFLUENZA VACCINE] Future Scheduled 2021-12-05 HEPATITIS B VACCINES [facility] Test 05:56:35 (1 of 3 - 3-dose series) [code = HEPATITIS B VACCINES (1 of 3 - 3-dose series)] Future Scheduled 2021-12-05 COVID-19 VACCINE (#1) [facility] Test 05:56:35 [code = COVID-19 VACCINE (#1)] Future Scheduled 2021-12-05 Pneumococcal Vaccine: [facility] Test 05:56:35 Pediatrics (0 to 5 Years) and At-Risk Patients (6 to 64 Years) (1 - PCV) [code = Pneumococcal Vaccine: Pediatrics (0 to 5 Years) and At-Risk Patients (6 to 64 Years) (1 - PCV)] Future Scheduled 2021-12-05 Hepatitis C screening [facility] Test 05:56:35 (procedure) [code = [id number]] Future Scheduled 2021-12-05 INFLUENZA VACCINE Method [facility] Test 05:56:35 [code = INFLUENZA VACCINE] Encounters Start End Encounter Admission Attending Care Care Encounter Source Date/Time Date/Time Type Type Clinicians Facility Department ID 2021-08-08 2021-08-08 Emergency MIRTHA Harrison DARBY LOPEZ [id number] [facility] 11:41:00 12:04:00 [facility] 2021-08-08 2021-08-08 [facility] [id number] [facility] 11:41:00 12:04:00 [facility] [id number] [facility] 2019-11-01 2019-11-01 Inpatient [facility] JOHN [id number] [address] [facility] 12:19:00 12:37:43 45 [facility] Results This patient has no known results. Notes Date/Time Note Provider Source 2021-08-08 11:57:00-00:00 [facility] ([facility]) EMERGENCY PROVIDER REPORT REPORT#:[id number] REPORT STATUS: Signed DATE:08/08/21 TIME: 1157 PATIENT: SHANNAN CAMPBELL UNIT #: [id number] ROOM/BED: AGE: 36 SEX: M PCP PHYS: Bari Kirk MD SERVICE AUTHOR: Genna Munoz AIRWAYS OPERATIONS SPECIALIST * ALL edits or amendments must be made on the [facility] Management/computer document * Genna Munoz 08/08/21 1157: HPI-Abd Pain M Under 40 Free Text HPI Notes Free Text HPI Notes 36-year-old male presents to the emergency room for evaluation of abdominal pain approximately 1 hour prior to arrival. Patient r eports the pain began in his epigastric area then spread to his lower abdomen. The episode of pain was brief and has resolved prior to arrival. Patient is cu rrently asymptomatic and is requesting to go home. General Confirmed Patient Yes Patient Type New patient Initial Greet Date/Time 08/08/21 1142 Presentation Chief Complaint Abdominal pain Hx Obtained From Patient Risk-Abd Pain M Under 40 )( Torsion Risk factors reviewed Review of Systems ROS Statements All systems rev neg except as marked. Focused Review of Systems GI Reports: Abdominal pain. Free Text ROS Notes Free Text ROS Notes Constitutional: Denies fever , chills, lethargy, malaise, or generalized weakness Eyes: Denies redness, pain, discharge, vision ch kuldip ENT: Denies earache, nasal congestion, or sore t hroat Respiratory: Denies cough, VIVAR, hemoptysis, SOB, or wheezing Cardiovascular: Denies chest pain, edema, palpit ations, or syncope GI: Denies nausea, vomiting, or diarrhea : Denies dysuria, flank pain Musculoskeletal: Denies back pain, extremity danna n, joint pain, or neck pain Skin: Denies rash, laceration, abrasion, or swel ling Neurological: Denies bladder dysfunction, bowel dysfunction, change in LOC, focal weakness, dizziness, headache, numbness, t ingling Past Medical History - Adult Stated Complaint ABDOMINAL PAIN STARTED [id number] I S GONE Allergies Coded Allergies: No Known Allergies (11/01/19) Home Medications Active Scripts ACETAMINOPHEN/CODEINE (TYLENOL WITH CODE INE #3 300/30 MG) 1 TAB PO Q4H PRN PRN PAIN SCALE 4-6 ACETAMINOPHEN/CODEINE (TYLENOL WITH CODEINE #3 300/30 MG) 1 TAB PO Q4H PRN PRN PAIN SCALE 4-6 #30 TABS Prov: 09/30/17 Review of Nursing Notes Triage notes reviewed Smoking status: Smoking status for patients 13 years old or old er: Current every day smoker Physical Exam Vital Signs Review of Vital Signs Reviewed Focused PE General/Const General/Const Awake, Alert, Well appearing Resp/Chest Respiratory/Chest Breath sounds NL, Breath soun ds = bilat, No respiratory distress, No rales, No rhonchi, No wheezing Cardiovascular Cardiovascular Heart rate NL, Regular rhythm, H eart sounds NL, Peripheral circulation NL Abdomen/GI Abdomen/GI Soft, Non-tender, McBurney's non-ten mina, No guarding, No rebound, BS normoactive, No distention, No hernia, No pal pable mass MS Back Back Inspection NL, Non-tender, No CVA tendern ess Skin Skin Color NL, Warm, Dry, Turgor NL Neurologic Neurologic Oriented X3, Speech NL, No motor def icits, No sensory deficits Interpretation Diagnostics Point of Care Testing Pulse Oximetry Pulse Ox % 100 On: Room air Interpretation Interpreted by me, Pulse oximetr y normal Re-Evaluation MDM )( Re-Evaluation/Progress #1 Text/Dict Note Patient educated on diagnosi s, signs and symptoms when to return to the ER, need for outpatient follow-up. Strict return precauti ons given. Stable for DC. )( Re-Eval Status Resolved Patient Discharge Departure Vital Signs/Condition Condition Stable Clinical Impression Clinical Impression Primary Impression: Abdominal pain Disposition Decision Discharge )( Discharged to Home Yes )( Time 1157 )( Date 08/08/21 Discharge/Care Plan Counseled Regarding Diagnosis, Need for follow-u p, When to return to ED Patient Instructions Abdominal Pain Discharge Note I have spoken with the patie nt and/or caregivers. I have explained the patient's condition, diagnoses and silvia atment plan based on the information available to me at this time. I have answered the patient's and/ or caregiver's questions and addressed any concerns. The patient and/or careg jennifer have as good an understanding of the patient 's diagnosis, condition and treatment plan as can be expected at this point. The vital signs have bee n stable. The patient's condition is stable and appr opriate for discharge from the emergency department. The patient will pursue further outpatient evalu ation with the primary care physician or other designated or consulting raj wilson as outlined in the discharge instructions. The patient and/or caregivers are agreeable to this plan of care and follow-up instructions have been exp lained in detail. The patient and/or caregivers have received these instructio ns in written format and have expressed an understanding of the discharge inst ructions. The patient and/or caregivers are aware that any significant change in condition or worsening of symptoms should prompt an immediate return to [facility] or the closest emergency department or a call to [facility]. Quality Measures BP F/U for HTN Referred for BP f/u < 4wk, F/u wi PCP/other doc Smoking Cessation Screened, tobacco user, Tobacc o cess intervention Pk Ayon 08/10/21 1548: Physical Exam Vital Signs Vital Signs First Documented: Result Date Time Pulse Ox 100 05/ 1141 B/P 121/79 05/06 1141 B/P Mean 93 05/06 1141 Temp 36.7 05/06 1141 Pulse 63 05/06 1141 Resp 14 05/06 1141 Last Documented: Result Date Time Pulse Ox 100 05/06 1203 B/P 125/71 05/06 1203 B/P Mean 89 05/06 1203 Pulse 58 05/06 1203 Resp 16 05/06 1203 Temp 36.7 05/06 1141 Patient Discharge Departure Vital Signs/Condition Vital Signs First Documented: Result Date Time Pulse Ox 100 05/06 1141 B/P 121/79 05/06 1141 B/P Mean 93 05/06 1141 Temp 36.7 05/06 1141 Pulse 63 05/06 1141 Resp 14 05/06 1141 Last Documented: Result Date Time Pulse Ox 100 05/06 1203 B/P 125/71 05/06 1203 B/P Mean 89 05/06 1203 Pulse 58 05/06 1203 Resp 16 05/06 1203 Temp 36.7 05/06 1141 All vital signs available at the time of this en try have been reviewed. Supervising Physician Note MidLv Saw Pt Alone I have reviewed the PA/AIRWAYS OPERATIONS SPECIALIST's note and plan of car e. I was available for consultation as needed at al l times during the patient's visit in the emergency department. I agree with the clinical impression , plan and disposition. Citlaly Harrison 08/12/21 1729: Patient Discharge Departure Discharge/Care Plan Referrals Provider Group: PRIMARY CARE OUTPT CLINIC Follow-Up: 1-2 Days Supervising Physician Note MidLv Saw Pt Alone I have reviewed the PA/AIRWAYS OPERATIONS SPECIALIST's note and plan of car nadia. I was available for consultation as needed at al l times during the patient's visit in the emergency department. at 0652 Electronically Signed by Pk Ayon MD on 12/25 at 0657 at 1729 RPT #:[id number] END OF REPORT 2019-11-01 12:31:00-00:00 [facility] ([facility]) EMERGENCY PROVIDER REPORT REPORT#:[id number] REPORT STATUS: Signed DATE:11/01/19 TIME: 1231 PATIENT: SHANNAN CAMPBELL UNIT #: [id number] ROOM/BED: AGE: 34 SEX: M PCP PHYS: No Primary or Family Ph ysician SERVICE DT: AUTHOR: Genna Munoz NP * ALL edits or amendments must be made on the [facility] Management/computer document * HPI-Dental/Mouth Prob General Confirmed Patient Yes Patient Type New patient Initial Greet Date/Time 11/01/19 1220 Presentation Chief Complaint Tooth pain Hx Obtained From Patient Onset Occurred Yesterday Symptom Duration Since onset Quality Painful Free Text HPI Notes Free Text HPI Notes 34-year-old male presents to the ER for evaluation of left lower toothache since yesterday. Denies fever, denies facial swelling. Patient is in no acute distress at time my exam. Review of Systems ROS Statements All systems rev neg except as marked. Focused Review of Systems Constitutional Denies: Fever. Ears/Nose/Throat Reports: Toothache. Past Medical History - Adult Stated Complaint TOOTH PAIN Allergies Coded Allergies: No Known Allergies (11/01/19) Home Medications Active Scripts ACETAMINOPHEN/CODEINE (TYLENOL WITH CODE INE #3 300/30 MG) 1 TAB PO Q4H PRN PRN PAIN SCALE 4-6 ACETAMINOPHEN/CODEINE (TYLENOL WITH CODEINE #3 300/30 MG) 1 TAB PO Q4H PRN PRN PAIN SCALE 4-6 #30 TABS Prov: 09/30/17 Review of Nursing Notes Triage notes reviewed Smoking status for patients 13 years old or olde r: Current every day smoker Pack years (pk/d)*(yrs): 0 (pt unsure) Date last smoked: still smoking Physical Exam Vital Signs Vital Signs First Documented: Result Date Time Pulse Ox 96 10/31 1220 B/P 134/90 10/31 1220 B/P Mean 104 10/31 1220 O2 Delivery Room air 10/31 1220 Temp 37.0 10/31 1220 Pulse 96 10/31 1220 Resp 14 10/31 1220 Last Documented: Result Date Time Pulse Ox 96 10/31 1220 B/P 134/90 10/31 1220 B/P Mean 104 10/31 1220 O2 Delivery Room air 10/31 1220 Temp 37.0 10/31 1220 Pulse 96 10/31 1220 Resp 14 10/31 1220 Review of Vital Signs Reviewed Focused PE General/Const General/Const Awake, Alert, No acute di stress, Well appearing, Well developed , Well hydrated, Well nourished, Cooperative, No t toxic appearing Ears/Nose/Throat Ears/Nose/Throat Atraumatic, Airway patent, Muc ous membranes moist, Pharynx NL, No peritonsillar abscess, No pooling of secr etions, No trismus, Tympanic membs NL, Ext aud canal NL, Mastoid area NL, Nose exam NL, No sinus tenderness, No facial swelling Text/Dict Notes No dental abscess, facial swelling, or facial ce llulitis noted. Dental/Gums Decay single tooth, Dentition poor, Tender to p alpation, Tooth fracture. Negative: Dental abscess. MS Neck Neck Atraumatic, Supple, No meningismus , Full range of motion, No adenopathy, No swelling, Non-tender Resp/Chest Respiratory/Chest Atraumatic, Breath sounds NL, Breath sounds = bilat, No respiratory distress Cardiovascular Cardiovascular Cap refill not delayed, Peripher al circulation NL Neurologic Neurologic Oriented X3, Speech NL, Gait NL Interpretation Diagnostics Point of Care Testing Pulse Oximetry Pulse Ox % 96 On: Room air Interpretation Interpreted by me, Pulse oximetr y normal Re-Evaluation MDM Free Text MDM Notes Free Text MDM Notes Patient educated on diagnosis, OTC meds for symp best management, signs and symptoms of when to return to the ER, and need f or outpatient follow-up for further evaluation and treat ment of nonemergent condition. Instructed to return to ER with new or worsening symptoms. Community resource packet given. Stable for DC Patient Discharge Departure Vital Signs/Condition Vital Signs First Documented: Result Date Time Pulse Ox 96 10/31 1220 B/P 134/90 10/31 1220 B/P Mean 104 10/31 1220 O2 Delivery Room air 10/31 1220 Temp 37.0 10/31 1220 Pulse 96 10/31 1220 Resp 14 10/31 1220 Last Documented: Result Date Time Pulse Ox 96 10/31 1220 B/P 134/90 10/31 1220 B/P Mean 104 10/31 1220 O2 Delivery Room air 10/31 1220 Temp 37.0 10/31 1220 Pulse 96 10/31 1220 Resp 14 10/31 1220 All vital signs available at the time of this en try have been reviewed. Condition Stable Clinical Impression Clinical Impression Primary Impression: Toothache Disposition Decision Other )( Time 1240 )( Date 11/01/19 FORREST-screened discharged Yes Discharge/Care Plan Counseled Regarding Diagnosis, Need for follow-u p, When to return to ED Referrals No Primary or Family Physician (PCP/Family) Quality Measures BP F/U for HTN Referred for BP f/u < 4wk, F/u wi th PCP/other doc Smoking Cessation Screened, tobacco user, Tobacc o cess intervention at 1237 RPT #:[id number] END OF REPORT 2019-11-01 12:31:00-00:00 [facility] ([facility]) EMERGENCY PROVIDER REPORT REPORT#:[id number] REPORT STATUS: Signed DATE:11/01/19 TIME: 1231 PATIENT: SHANNAN CAMPBELL UNIT #: [id number] ROOM/BED: AGE: 34 SEX: M PCP PHYS: No Primary or Family Ph ysician SERVICE DT: AUTHOR: Genna Munoz NP * ALL edits or amendments must be made on the [facility] [employer]/computer document * Genna Munoz 11/01/19 1231: HPI-Dental/Mouth Prob General Confirmed Patient Yes Patient Type New patient Presentation Chief Complaint Tooth pain Hx Obtained From Patient Onset Occurred Yesterday Symptom Duration Since onset Quality Painful Free Text HPI Notes Free Text HPI Notes 34-year-old male presents to the ER for evaluation of left lower toothache since yesterday. Denies fever, denies facial swelling. Patient is in no acute distress at time my exam. Review of Systems ROS Statements All systems rev neg except as marked. Focused Review of Systems Constitutional Denies: Fever. Ears/Nose/Throat Reports: Toothache. Past Medical History - Adult Stated Complaint TOOTH PAIN Allergies Coded Allergies: No Known Allergies (11/01/19) Home Medications Active Scripts ACETAMINOPHEN/CODEINE (TYLENOL WITH CODE INE #3 300/30 MG) 1 TAB PO Q4H PRN PRN PAIN SCALE 4-6 ACETAMINOPHEN/CODEINE (TYLENOL WITH CODEINE #3 300/30 MG) 1 TAB PO Q4H PRN PRN PAIN SCALE 4-6 #30 TABS Prov: 09/30/17 Review of Nursing Notes Triage notes reviewed Smoking status for patients 13 years old or olde r: Current every day smoker Pack years (pk/d)*(yrs): 0 (pt unsure) Date last smoked: still smoking Physical Exam Vital Signs Vital Signs First Documented: Result Date Time Pulse Ox 96 10/31 1220 B/P 134/90 10/31 1220 B/P Mean 104 10/31 1220 O2 Delivery Room air 10/31 1220 Temp 37.0 10/31 1220 Pulse 96 10/31 1220 Resp 14 10/31 1220 Last Documented: Result Date Time Pulse Ox 96 10/31 1220 B/P 134/90 10/31 1220 B/P Mean 104 10/31 1220 O2 Delivery Room air 10/31 1220 Temp 37.0 10/31 1220 Pulse 96 10/31 1220 Resp 14 10/31 1220 Review of Vital Signs Reviewed Focused PE General/Const General/Const Awake, Alert, No acute di stress, Well appearing, Well developed , Well hydrated, Well nourished, Cooperative, No t toxic appearing Ears/Nose/Throat Ears/Nose/Throat Atraumatic, Airway patent, Muc ous membranes moist, Pharynx NL, No peritonsillar abscess, No pooling of secr etions, No trismus, Tympanic membs NL, Ext aud canal NL, Mastoid area NL, Nose exam NL, No sinus tenderness, No facial swelling Text/Dict Notes No dental abscess, facial swelling, or facial ce llulitis noted. Dental/Gums Decay single tooth, Dentition poor, Tender to p alpation, Tooth fracture. Negative: Dental abscess. MS Neck Neck Atraumatic, Supple, No meningismus , Full range of motion, No adenopathy, No swelling, Non-tender Resp/Chest Respiratory/Chest Atraumatic, Breath sounds NL, Breath sounds = bilat, No respiratory distress Cardiovascular Cardiovascular Cap refill not delayed, Peripher al circulation NL Neurologic Neurologic Oriented X3, Speech NL, Gait NL Interpretation Diagnostics Point of Care Testing Pulse Oximetry Pulse Ox % 96 On: Room air Interpretation Interpreted by me, Pulse oximetr y normal Re-Evaluation MDM Free Text MDM Notes Free Text MDM Notes Patient educated on diagnosis, OTC meds for symp best management, signs and symptoms of when to return to the ER, and need f or outpatient follow-up for further evaluation and treat ment of nonemergent condition. Instructed to return to ER with new or worsening symptoms. Community resource packet given. Stable for DC Patient Discharge Departure Vital Signs/Condition Vital Signs First Documented: Result Date Time Pulse Ox 96 10/31 1220 B/P 134/90 10/31 1220 B/P Mean 104 10/31 1220 O2 Delivery Room air 10/31 1220 Temp 37.0 10/31 1220 Pulse 96 10/31 1220 Resp 14 10/31 1220 Last Documented: Result Date Time Pulse Ox 96 10/31 1220 B/P 134/90 10/31 1220 B/P Mean 104 10/31 1220 O2 Delivery Room air 10/31 1220 Temp 37.0 10/31 1220 Pulse 96 10/31 1220 Resp 14 10/31 1220 All vital signs available at the time of this en try have been reviewed. Condition Stable Clinical Impression Clinical Impression Primary Impression: Toothache Disposition Decision Other )( Time 1240 )( Date 11/01/19 FORREST-screened discharged Yes Discharge/Care Plan Counseled Regarding Diagnosis, Need for follow-u p, When to return to ED Referrals No Primary or Family Physician (PCP/Family) Quality Measures BP F/U for HTN Referred for BP f/u < 4wk, F/u wi th PCP/other doc Smoking Cessation Screened, tobacco user, Tobacc o cess intervention Jen Ott 11/01/19 1300: HPI-Dental/Mouth Prob General Initial Greet Date/Time 11/01/19 1220 Patient Discharge Departure Supervising Physician Note MidLv Saw Pt Alone I have reviewed the PA/AIRWAYS OPERATIONS SPECIALIST's note and plan of car e. I was available for consultation as needed at al l times during the patient's visit in the emergency department. I agree with the clinical impression , plan and disposition. at 1237 at 1300 RPT #:[id number] END OF REPORT
[2022-09-07 04:00] LABS: Absolute Lymphocytes (CBC) 2.5 K/uL (0.7-4.9); Hematocrit 39.1 % (39.6-49.0); Lymphocytes % 27.7 % (15.3-44.8); MCV 84.7 fL (80-100); MPV 7.5 fL (7.6-11.3); RBC Red Blood Cell Count 4.61 M/uL (4.33-5.43)
[2022-09-07 04:37] LABS: ALT/SGPT 35 U/L (16-61); Alkaline Phosphatase 125 U/L (45-117); BUN Blood Urea Nitrogen 9 mg/dL (7-18); Bicarbonate 25 mEq/L (21-32); Bilirubin Total 0.2 mg/dL (0.2-1.0); Glomerular Filtration Rate 102 ml/min (=/>90); Glucose Level 393 mg/dL (74-106); NT PRO-BNP 92 pg/mL (<125); Protein, Total 6.5 g/dL (6.4-8.2); Sodium Level 135 mEq/L (136-145); Troponin High Sensitivity 4.3 pg/mL (<58.9)
[2022-09-07 04:38] LABS: AST/SGOT 20 U/L (15-37); Bilirubin Direct < 0.1 mg/dL (0-0.2); Bilirubin Indirect, Calculated ND mg/dL (0.2-0.8); Potassium 3.7 mEq/L (3.5-5.1)
[2022-09-07] MEDS ORDERED: IPRATROPIUM BROM 0.5MG/2.5ML ONE (04:45)
[2022-09-07] MEDS ORDERED: ALBUTEROL 2.5 MG/3 ML NEB SOL ONE (04:45)
[2022-09-07] MEDS ORDERED: METHYLPREDNISOLONE 125 MG INJ ONE (04:45)
[2022-09-07] MEDS ORDERED: INSULIN -REGULAR HUMAN 50 UNIT/0.5 ML ML ONE (06:28)
--- NOTE | 2022-09-07 07:24 | ER ---
Nurse's Notes [facility] Name: Arsalan Campbell Age: 37 yrs Sex: Male : 1985 Arrival Date: 09/07/2022 Time: 03:18 Bed 15 Private MD: Diagnosis: Acute bronchitis, unspecified;Shortness of breath;Chest pain on breathing;Hyperglycemia, unspecified Presentation: 09/07 03:28 Chief complaint: Patient states: C/o chest pain, SOB and cough. Coronavirus screen: ll3 Vaccine status: Patient reports being unvaccinated. At this time, the client does not indicate any symptoms associated with coronavirus-19. Ebola Screen: No symptoms or risks identified at this time. Initial Sepsis Screen: Does the patient meet any 2 criteria? No. Patient's initial sepsis screen is negative. Does the patient have a suspected source of infection? No. Patient's initial sepsis screen is negative. Risk Assessment: Do you want to hurt yourself or someone else? Patient reports no desire to harm self or others. Onset of symptoms was September 07, 2022 at 01:00. 03:28 Method Of Arrival: Ambulatory ll3 03:28 Acuity: BURKE 2 ll3 Triage Assessment: 03:29 General: Appears uncomfortable, Behavior is calm, cooperative. Pain: Complains of pain ll3 in anterior aspect of right upper chest Pain does not radiate. Pain currently is 6 out of 10 on a pain scale. at worst was 7 out of 10 on a pain scale. Quality of pain is described as sharp, Pain began 4 hours ago. Is continuous, Aggravated by lying down. Cardiovascular: Reports chest pain, shortness of breath, Patient's skin is warm and dry. Chest pain is described as mild, quality is sharp, is located in left anterior chest wall began 4 hours prior to arrival episodes are continuous is aggravated by lying down. Respiratory: Reports shortness of breath cough that is since last week Respiratory effort is even, unlabored, Respiratory pattern is regular, symmetrical. Derm: Skin is pink, warm \T\ dry. Historical: - Allergies: 03:29 No Known Allergies; ll3 - Home Meds: 03:29 None [Active]; ll3 - PMHx: 03:29 None; ll3 - PSHx: 03:29 Cholecystectomy; hernia repair; ll3 - Immunization history:: Client reports having NOT received the Covid vaccine. - Social history:: Smoking status: Patient reports the use of cigarette tobacco products, 1 1/2 PPD. Screenin:06 Abuse screen: Denies threats or abuse. Denies injuries from another. Nutritional aa9 screening: No deficits noted. Tuberculosis screening: No symptoms or risk factors identified. 09:06 [facility] ED Fall Risk Assessment (Adult) History of falling in the last 3 months, ap3 including since admission No falls in past 3 months (0 pts). Assessment: 04:05 General: Appears uncomfortable, obese, Behavior is cooperative, anxious. Pain: aa9 Complains of pain in chest. Neuro: Level of Consciousness is awake, alert, obeys commands, Oriented to person, place, time, situation. Cardiovascular: Patient's skin is warm and dry. Rhythm is regular. Respiratory: Reports shortness of breath on exertion cough that is dry, pain with cough Airway is patent Respiratory effort is even, unlabored. : No signs and/or symptoms were reported regarding the genitourinary system. Derm: Skin is intact, is healthy with good turgor. 04:45 GI: Pt is actively vomiting undigested food. aa9 06:25 Reassessment: Patient appears in no apparent distress at this time. Patient and/or aa9 family updated on plan of care and expected duration. Pain level reassessed. Patient is alert, oriented x 3, equal unlabored respirations, skin warm/dry/pink. Patient states symptoms have improved. Vital Signs: 03:28 BP 144 / 82; Pulse 80; Resp 17; Temp 98.1(O); Pulse Ox 100% on R/A; Weight 99.79 kg ll3 (R); Height 5 ft. 7 in. (R); Pain 6/10; 04:06 BP 109 / 82; Pulse 90; Resp 18; Pulse Ox 98% on R/A; aa9 05:00 BP 119 / 82; Pulse 85; Resp 17; Pulse Ox 94% on R/A; aa9 06:53 BP 123 / 74; Pulse 85; Resp 17 S; Pulse Ox 99% on R/A; aa9 03:28 Body Mass Index 34.46 (99.79 kg, 170.18 cm) ll3 03:28 Pain Scale: Adult ll3 ED Course: 03:20 Patient arrived in ED. ag3 03:23 Jared Morgan MD is Attending Physician. kdr 03:29 Triage completed. ll3 03:29 Arm band placed on Patient placed in an exam room, on a stretcher, on cardiac monitor technician, ll3 on pulse oximetry. EKG completed in triage. Results shown to MD. 03:31 Manuela Avelar, RN is Primary Nurse. aa9 03:35 EKG done, by ED staff, reviewed by Jared Morgan MD. jw7 03:50 Inserted saline lock: 20 gauge in right antecubital area, using aseptic technique. aa9 Blood collected. 03:50 Patient maintains SpO2 saturation greater than 95% on room air. aa9 03:55 Flu Sent. aa9 03:55 Basic Metabolic Panel Sent. aa9 03:55 CBC with Diff Sent. aa9 03:55 LFT's Sent. aa9 03:55 NT PRO-BNP Sent. aa9 03:55 Troponin HS Sent. aa9 03:56 COVID-19 SARS RT PCR Sent. aa9 03:56 Flu Sent. aa9 04:00 XRAY Chest (1 view) In Process Unspecified. EDMS 04:45 Patient has correct armband on for positive identification. Placed in gown. Bed in low aa9 position. Call light in reach. Side rails up X 1. Client placed on continuous cardiac and pulse oximetry monitoring. NIBP monitoring applied. 09:06 No provider procedures requiring assistance completed. IV discontinued, intact, ap3 bleeding controlled, No redness/swelling at site. Pressure dressing applied. Administered Medications: 04:44 Drug: DuoNeb Nebulize (2.5 mg - 0.5 mg) 3 ml Route: Nebulizer; aa9 06:24 Follow up: Response: No adverse reaction aa9 04:45 Drug: MethylPrednisoLONE IVP 125 mg Route: IVP; Site: right antecubital; aa9 06:24 Follow up: Response: No adverse reaction aa9 06:23 Drug: Insulin Regular Human IVP 6 units {Co-Signature: [email or web address] (Lorie Huddleston RN).} Route: aa9 IVP; Site: right antecubital; 09:07 Follow up: Response: No adverse reaction ap3 06:43 CANCELLED (Duplicate Order): vancoMYCIN IVPB 1 grams IVPB once over 2 hrs kdr 07:36 Drug: AZITHromycin PO 500 mg Route: PO; ap3 09:07 Follow up: Response: No adverse reaction ap3 Medication: 09:06 VIS not applicable for this client. ap3 Outcome: 07:23 Discharge ordered by . kdr 09:06 Discharged to home ambulatory. ap3 09:06 Condition: good 09:06 Discharge instructions given to patient, Instructed on discharge instructions, follow up and referral plans. medication usage, Demonstrated understanding of instructions, follow-up care, medications, Prescriptions given X 1. 09:09 Patient left the ED. ap3 Signatures: Dispatcher [employer] EDMS Jared Morgan MD MD kdr Arcahna Danielle RN RN ap3 Shelby Avilez Lynsea RN RN ll3 Quita Bennett7 Manuela Avelar RN RN aa9 Lorie Huddleston RN kd3 Corrections: (The following items were deleted from the chart) 04:07 04:05 Cardiovascular: Patient's skin is warm and dry. aa9 aa9 06:53 06:24 BP 119 / 82; Pulse 85bpm; Resp 17bpm; Pulse Ox 94% RA; aa9 aa9
--- NOTE | 2022-09-07 07:24 | EDPHYS ---
Physician Documentation [facility] Name: Arsalan Campbell Age: 37 yrs Sex: Male : 1985 Arrival Date: 09/07/2022 Time: 03:18 Bed 15 Private MD: ED Physician Jared Morgan HPI: 09/07 07:19 This 37 yrs old Male presents to ER via Ambulatory with complaints of Chest Pain, Cough.kdr 07:19 Patient's had cough and upper respiratory symptoms for about a week and most recently kdr some chest discomfort on the right side. His cough has been nonproductive.. Onset: The symptoms/episode began/occurred gradually, 1 week(s) ago. Severity of symptoms: At their worst the symptoms were moderate in the emergency department the symptoms are unchanged. The patient has not experienced similar symptoms in the past. The patient has not recently seen a physician. Historical: - Allergies: 03:29 No Known Allergies; ll3 - Home Meds: 03:29 None [Active]; ll3 - PMHx: 03:29 None; ll3 - PSHx: 03:29 Cholecystectomy; hernia repair; ll3 - Immunization history:: Client reports having NOT received the Covid vaccine. - Social history:: Smoking status: Patient reports the use of cigarette tobacco products, 1 1/2 PPD. ROS: 07:20 Constitutional: Negative for fever, chills, and weight loss, Eyes: Negative for injury, kdr pain, redness, and discharge, ENT: Negative for injury, pain, and discharge, Neck: Negative for injury, pain, and swelling, Abdomen/GI: Negative for abdominal pain, nausea, vomiting, diarrhea, and constipation, Back: Negative for injury and pain, : Negative for injury, bleeding, discharge, and swelling, MS/Extremity: Negative for injury and deformity, Skin: Negative for injury, rash, and discoloration, Neuro: Negative for headache, weakness, numbness, tingling, and seizure activity. Psych: Negative for depression, anxiety, suicide ideation, homicidal ideation, and hallucinations, Allergy/Immunology: Negative for hives, rash, and allergies, Endocrine: Negative for neck swelling, polydipsia, polyuria, polyphagia, and marked weight changes, Hematologic/Lymphatic: Negative for swollen nodes, abnormal bleeding, and unusual bruising. 07:20 Cardiovascular: Positive for chest pain, Negative for edema, orthopnea, palpitations, paroxysmal nocturnal dyspnea. 07:20 Respiratory: Positive for cough, "sounds productive", dyspnea on exertion, shortness of breath, on exertion. Exam: 07:20 Constitutional: This is a well developed, well nourished patient who is awake, alert, kdr and in no acute distress. Head/Face: Normocephalic, atraumatic. Eyes: Pupils equal round and reactive to light, extra-ocular motions intact. Lids and lashes normal. Conjunctiva and sclera are non-icteric and not injected. Cornea within normal limits. Periorbital areas with no swelling, redness, or edema. Neck: Trachea midline, no thyromegaly or masses palpated, and no cervical lymphadenopathy. Supple, full range of motion without nuchal rigidity, or vertebral point tenderness. No Meningismus. Chest/axilla: Normal chest wall appearance and motion. Nontender with no deformity. No lesions are appreciated. Cardiovascular: Regular rate and rhythm with a normal S1 and S2. No gallops, murmurs, or rubs. Normal PMI, no JVD. No pulse deficits. Respiratory: Lungs have equal breath sounds bilaterally, clear to auscultation and percussion. No rales, rhonchi or wheezes noted. No increased work of breathing, no retractions or nasal flaring. Abdomen/GI: Soft, non-tender, with normal bowel sounds. No distension or tympany. No guarding or rebound. No evidence of tenderness throughout. Back: No spinal tenderness. No costovertebral tenderness. Full range of motion. Skin: Warm, dry with normal turgor. Normal color with no rashes, no lesions, and no evidence of cellulitis. MS/ Extremity: Pulses equal, no cyanosis. Neurovascular intact. Full, normal range of motion. Neuro: Awake and alert, GCS 15, oriented to person, place, time, and situation. Cranial nerves II-XII grossly intact. Motor strength 5/5 in all extremities. Sensory grossly intact. Cerebellar exam normal. Normal gait. Psych: Awake, alert, with orientation to person, place and time. Behavior, mood, and affect are within normal limits. Vital Signs: 03:28 BP 144 / 82; Pulse 80; Resp 17; Temp 98.1(O); Pulse Ox 100% on R/A; Weight 99.79 kg ll3 (R); Height 5 ft. 7 in. (R); Pain 6/10; 04:06 BP 109 / 82; Pulse 90; Resp 18; Pulse Ox 98% on R/A; aa9 05:00 BP 119 / 82; Pulse 85; Resp 17; Pulse Ox 94% on R/A; aa9 06:53 BP 123 / 74; Pulse 85; Resp 17 S; Pulse Ox 99% on R/A; aa9 03:28 Body Mass Index 34.46 (99.79 kg, 170.18 cm) ll3 03:28 Pain Scale: Adult ll3 MDM: 07:20 Data reviewed: vital signs, nurses notes, lab test result(s), radiologic studies. kdr Consideration of Admission/Observation Patient was admitted/placed on observation. 07:23 Patient medically screened. kdr 09/07 03:39 Order name: Basic Metabolic Panel; Complete Time: 06:01 kdr 09/07 03:39 Order name: CBC with Diff; Complete Time: 04:20 kdr 09/07 03:39 Order name: LFT's; Complete Time: 06:01 kdr 09/07 03:39 Order name: NT PRO-BNP; Complete Time: 06:01 kdr 09/07 03:39 Order name: Troponin HS; Complete Time: 06:01 kdr 09/07 03:40 Order name: COVID-19 SARS RT PCR; Complete Time: 06:34 kdr 06 03:40 Order name: Flu; Complete Time: 04:20 kdr 09/07 03:40 Order name: Flu ll3 0605 06:21 Order name: Glucose, Ancillary Testing; Complete Time: 06:34 EDMS 09/07 06:53 Order name: Glucose, Ancillary Testing; Complete Time: 07:19 EDMS / 03:39 Order name: XRAY Chest (1 view) kdr 09/07 03:39 Order name: EKG; Complete Time: 03:40 kdr 09/07 03:39 Order name: Cardiac monitoring; Complete Time: 03:55 kdr 09/07 03:39 Order name: EKG - Nurse/Tech; Complete Time: 03:55 kdr 06 03:39 Order name: IV Saline Lock; Complete Time: 03:55 kdr 09/07 03:39 Order name: Labs collected and sent; Complete Time: 03:55 kdr 09/07 03:39 Order name: O2 Per Protocol; Complete Time: 03:55 kdr 09/07 03:39 Order name: O2 Sat Monitoring; Complete Time: 03:55 kdr 09/07 03:40 Order name: Cardiac monitoring; Complete Time: 03:40 ll3 09/07 03:40 Order name: EKG - Nurse/Tech; Complete Time: 03:40 ll3 09/07 03:40 Order name: IV Saline Lock; Complete Time: 03:55 ll3 09/07 03:40 Order name: Labs collected and sent; Complete Time: 03:55 ll3 09/07 03:40 Order name: O2 Per Protocol; Complete Time: 03:55 ll3 09/07 03:40 Order name: O2 Sat Monitoring; Complete Time: 03:55 ll3 09/07 06:34 Order name: FSBS; Complete Time: 06:40 kdr Administered Medications: 04:44 Drug: DuoNeb Nebulize (2.5 mg - 0.5 mg) 3 ml Route: Nebulizer; aa9 06:24 Follow up: Response: No adverse reaction aa9 04:45 Drug: MethylPrednisoLONE IVP 125 mg Route: IVP; Site: right antecubital; aa9 06:24 Follow up: Response: No adverse reaction aa9 06:23 Drug: Insulin Regular Human IVP 6 units {Co-Signature: kd3 (Lorie Huddleston RN).} Route: aa9 IVP; Site: right antecubital; 09:07 Follow up: Response: No adverse reaction ap3 06:43 CANCELLED (Duplicate Order): vancoMYCIN IVPB 1 grams IVPB once over 2 hrs kdr 07:36 Drug: AZITHromycin PO 500 mg Route: PO; ap3 09:07 Follow up: Response: No adverse reaction ap3 Disposition Summary: 09/07/22 07:23 Discharge Ordered Location: Home kdr Problem: new kdr Symptoms: have improved kdr Condition: Stable kdr Diagnosis - Acute bronchitis, unspecified kdr - Shortness of breath kdr - Chest pain on breathing kdr - Hyperglycemia, unspecified kdr Followup: kdr - With: Private Physician - When: 2 - 3 days - Reason: If symptoms return, Further diagnostic work-up, Recheck today's complaints, Continuance of care, Re-evaluation by your physician Discharge Instructions: - Discharge Summary Sheet kdr - Acute Bronchitis, Adult kdr - Shortness of Breath, Adult kdr - Hyperglycemia, [id number] kdr Forms: - Medication Reconciliation Form kdr - Thank You Letter kdr - Antibiotic Education kdr - Work release form ap3 Prescriptions: - Zithromax Z-Roni 250 mg Oral Tablet - take 1 tablet by ORAL route once daily for 4 days; 4 tablet; Refills: 0, kdr Product Selection Permitted Signatures: Dispatcher [employer] EDMS Jared Morgan MD MD kdr Archana Danielle RN RN ap3 Neeru Bueno RN RN 3 Manuela Avelar, RN RN aa9 Lorie Huddleston RN kd3 Corrections: (The following items were deleted from the chart) 03:46 03:40 Chest Single View+RAD.RAD.BRZ ordered. EDMS EDMS 03:47 03:40 BASIC METABOLIC PANEL+C.LAB.BRZ ordered. EDMS EDMS 03:47 03:40 CBC+H.LAB.BRZ ordered. EDMS EDMS 03:47 03:40 Troponin High Sensitivity+C.LAB.BRZ ordered. EDMS EDMS 03:47 03:40 SARS-COV-2 Antigen Rapid+I.LAB.BRZ ordered. EDMS EDMS 06:43 06:43 vancoMYCIN IVPB 1 grams IVPB once over 2 hrs ordered. kdr kdr
[2022-09-07] MEDS ORDERED: AZITHROMYCIN 250 MG TAB ONE (07:39)
[2022-09-07 09:33] VITALS: TEMP 98.1
[2022-09-07 09:36] VITALS: BP 123/74; O2SAT 99
--- NOTE | 2022-09-07 10:14 | EKG ---
Test Date: 2022-09-07 Test Time: 03:29:01 Director Business: JAIME MEASUREMENT RESULTS: Intervals: Rate: 82 RI: 126 QRSD: 82 QT: 362 QTc: 422 [place]: P: 62 RI: 126 QRS: 52 T: 41 INTERPRETIVE STATEMENTS: Normal sinus rhythm Normal ECG No previous ECG available for comparison Electronically Signed On 09-07-22 10:13:31 CDT by Hao Pisano
--- NOTE | 2022-09-07 16:21 | RAD REPORT ---
EXAM DESCRIPTION: RAD - Chest Single View - 09/07/2022 3:58 am CLINICAL HISTORY: The patient is 37 years old and is Male; CHEST PAIN TECHNIQUE: Frontal view of the chest. COMPARISON: No relevant prior studies available. FINDINGS: LUNGS: Unremarkable. No consolidation. PLEURAL SPACE: Unremarkable. No pneumothorax. HEART: Unremarkable. No cardiomegaly. MEDIASTINUM: Unremarkable. BONES/JOINTS: Unremarkable. UPPER ABDOMEN: Unremarkable as visualized. IMPRESSION: No acute cardiopulmonary process. Electronically signed by: Daniella Springer MD 09/07/2022 4:09 AM CDT Due to temporary technical issues with the PACS/Fluency reporting system, reports are being signed by the in house radiologist without review as a courtesy to ensure prompt reporting. The interpreting r adiologist is fully responsible for the content of the report.
== END 2022-09-07 09:09 | disposition home or self-care (01) ==
LOC: ER 03:18
DX: J20.9 Acute bronchitis, unspecified (principal); R73.9 Hyperglycemia, unspecified; F17.210 Nicotine dependence, cigarettes, uncomplicated; Z20.822 Contact with and (suspected) exposure to COVID-19
CPT/HCPCS: 93005; 85025; 80048; 36415; 82947 ×2; 80076; 84484; 83880; 87635; 87804 ×2; 71045; 94640; 96375; 96374; 99285; J1815; J7613; J7644; J2930

== ENCOUNTER 2022-09-07 20:38 | Emergency (ER) | payer OTHER ==
--- OUTSIDE RECORDS SUMMARY | 2022-09-07 21:20 | XMS REPORT | Continuity of Care Document ---
:1985 Author Organization [facility] t Address [address] [facility] [address] [place] [address] Care Team Providers Name Role Phone Asked, No Pcp Primary Care Physician Unavailable Citally Harrison Attending Clinician Unavailable Physician, No Primary [...] Known DA Active U 2020-0 [facility] No Known DA Active U 0 [facility] 10[facility] [place] [facility] No Known DA Active U 2017- [facility] [place] [facility] No Known DA Active U 2017- [facility] [place] No Known DA Active U 2018- [facility] [place] [facility] Social History Social Habit Start Date Stop Date Quantity Comments Source History of tobacco Cigarette [facility] History of Social 2019-03-01 2019-03-[address] function 00:00:00 00:00:00 Hospital Alcohol intake 2019-03-01 2019-03-01 Current drinker [facility] 00:00:00 00:00:00 of alcohol Hospital (finding) Tobacco use and 2017-09-07 2017-09-07 Smokeless [facility] exposure 00:00:00 00:00:00 tobacco non-user Hospital Alcohol Comment 2017-09-07 2017-09-07 "occassionally" [facility] 00:00:00 00:00:00 Hospital Cigarettes smoked 2017-09-07 2017-09-07 [facility] per 00:[facility]:00 00:00:00 Hospita l day) - Reported Cigarette 2017-09-07 2017-09-07 [facility] 00:00[facility]00 00:00:00 Hospital Sex Assigned At [birth year] [facility] 00:[facility]00 [facility] Smoking Status Start Date Stop Date Source Smokes tobacco daily 2017-09-07 00:00:00 [facility] Medications Ordered Filled Start Stop [...] Source Future Scheduled 2022-07-04 COVID-19 VACCINE (#1) [facility] Hospital Test 04:29:37 [code = COVID-19 VACCINE (#1)] Future Scheduled 2022-07-04 COVID-19 VACCINE (#1) [facility] Hospital Test 04:29:37 [code = COVID-19 VACCINE (#1)] Future Scheduled 2022-07-04 INFLUENZA VACCINE [facility] Test 04:29:37 [code = INFLUENZA VACCINE] Future Scheduled 2022-07-04 [facility]ZA VACCINE [facility] Test 04:29:37 [code = INFLUENZA VACCINE] Future Scheduled 2022-05-16 COVID-19 VACCINE (#1) [facility] Hospital Test 03:12:00 [code = COVID-19 VACCINE (#1)] Future Scheduled 2022-05-16 INFLUENZA VACCINE Method [facility] Test 03:12:00 [code = INFLUENZA VACCINE] Future Scheduled 2022-03-20 Pneumococcal Vaccine: [facility] Test 21:40:31 Pediatrics (0 to 5 Years) and At-Risk Patients (6 to 64 Years) (1 - PCV) [code = Pneumococcal Vaccine: Pediatrics (0 to 5 Years) and At-Risk Patients (6 to 64 Years) (1 - PCV)] Future Scheduled 2022-03-20 Hepatitis C screening [facility] Test 21:40:31 (procedure) [code = 141405457] Future Scheduled 2022-03-20 INFLUENZA VACCINE Method [facility] Test 21:40:31 [code = INFLUENZA VACCINE] Future Scheduled 2022-03-20 COVID-19 VACCINE (#1) [facility] Test 21:40:31 [code = COVID-19 VACCINE (#1)] Future Scheduled 2022-03-20 Pneumococcal Vaccine: [facility] Test 21:40:31 Pediatrics (0 to 5 Years) and At-Risk Patients (6 to 64 Years) (1 - PCV) [code = Pneumococcal Vaccine: Pediatrics (0 to 5 Years) and At-Risk Patients (6 to 64 Years) (1 - PCV)] Future Scheduled 2022-03-20 Hepatitis C screening [facility] Test 21:40:31 (procedure) [code = [id number]] Future Scheduled 2022-03-20 INFLUENZA VACCINE Method [facility] Test 21:40:31 [code = INFLUENZA VACCINE] Future Scheduled 2022-03-20 COVID-19 VACCINE (#1) [facility] Test 21:40:31 [code = COVID-19 VACCINE (#1)] Future Scheduled 2022-02-07 HEPATITIS B VACCINES Met [facility] Test 09:18:09 (1 of 3 - 3-dose series) [code = HEPATITIS B VACCINES (1 of 3 - 3-dose series)] Future Scheduled 2022-02-07 COVID-19 VACCINE (#1) [facility] Test 09:18:09 [code = COVID-19 VACCINE (#1)] Future Scheduled 2022-02-07 Pneumococcal Vaccine: [facility] Test 09:18:09 Pediatrics (0 to 5 Years) and At-Risk Patients (6 to 64 Years) (1 - PCV) [code = Pneumococcal Vaccine: Pediatrics (0 to 5 Years) and At-Risk Patients (6 to 64 Years) (1 - PCV)] Future Scheduled 2022-02-07 Hepatitis C screening [facility] Test 09:18:09 (procedure) [code = [id number]] Future Scheduled 2022-02-07 INFLUENZA VACCINE Method [facility] Test 09:18:09 [code = INFLUENZA VACCINE] Future Scheduled 2021-12-05 HEPATITIS B VACCINES [facility] Test 05:56:35 (1 of 3 - 3-dose series) [code = HEPATITIS B VACCINES (1 of 3 - 3-dose series)] Future Scheduled 2021-12-05 COVID-19 VACCINE (#1) [facility] Test 05:56:35 [code = COVID-19 VACCINE (#1)] Future Scheduled 2021-12-05 Pneumococcal Vaccine: [facility] Test 05:56:35 Pediatrics (0 to 5 Years) and At-Risk Patients (6 to 64 Years) (1 - PCV) [code = Pneumococcal Vaccine: Pediatrics (0 to 5 Years) and At-Risk Patients (6 to 64 Years) (1 - PCV)] Future Scheduled 2021-12-05 Hepatitis C screening [facility] Test 05:56:35 (procedure) [code = [id number]] Future Scheduled 2021-12-05 INFLUENZA VACCINE Method [facility] Test 05:56:35 [code = INFLUENZA VACCINE] Encounters Start End Encounter Admission Attending Care Care Encounter Source Date/Time Date/Time Type Type Clinicians Facility Department ID 2021-08-08 2021-08-08 Emergency MIRTHA Harrison DARBY LOPEZ [id number] [facility] 11:41:00 12:04:00 [place] [address] [facility] [place] 2021-08-08 2021-08-08 Emergency MIRTHA Harrison DARBY [facility] [id number] [facility] 11:41:00 12:04:00 [place] [id number] [facility] [place] 2019-11-01 2019-11-01 Inpatient [facility] JOHN [id number] [facility] 12:19:00 12:37:43 45 [facility] [place] Results This patient has no known results. Notes Date/Time Note Provider Source 2021-08-08 11:57:00-00:00 [facility] ([facility]) EMERGENCY PROVIDER REPORT REPORT#:[id number] REPORT STATUS: Signed DATE:08/08/21 TIME: 1156 PATIENT: SHANNAN CAMPBELL UNIT #: [id number] ROOM/BED: AGE: 36 SEX: M PCP PHYS: Bari Kirk MD SERVICE AUTHOR: Genna Munoz PUBLISHING AGENT * ALL edits or amendments must be made on the [employer]/computer document * Genna Munoz 08/08/21 1157: HPI-Abd [...] - Adult Stated Complaint ABDOMINAL PAIN STARTED [id number] I S GONE Allergies Coded Allergies: No [...] Back Back Inspection NL, Non-tender, No CVA tenderne ss Skin Skin Color NL, Warm, Dry, Turgor [...] symptoms should prompt an immediate return to [facility] or the closest emergency department or a call to 911. Quality Measures BP F/U for HTN Referred [...] Saw Pt Alone I have reviewed the PA/PUBLISHING AGENT's note and plan of car e. I [...] Saw Pt Alone I have reviewed the PA/PUBLISHING AGENT's note and plan of car e. I was available for consultation as needed at al l times during the patient's visit in the emergency department. at 0652 Electronically Signed by Pk Ayon MD on 12/25 at 0657 at 1729 RPT #:[id number] END OF REPORT 2019-11-01 12:31:00-00:00 [facility] ([facility]) EMERGENCY PROVIDER REPORT REPORT#:[id number] REPORT STATUS: Signed DATE:11/01/19 TIME: 1231 PATIENT: SHANNAN CAMPBELL UNIT #: [id number] ROOM/BED: AGE: 34 SEX: M PCP PHYS: No Primary or Family Ph ysician SERVICE DT: AUTHOR: Genna Munoz NP * ALL edits or amendments must be made on the el [employer]/computer document * HPI-Dental/Mouth Prob General Confirmed Patient [...] Tobacc o cess intervention at 1237 RPT #:[id number] END OF REPORT 2019-11-01 12:31:00-00:00 [facility] ([facility]) EMERGENCY PROVIDER REPORT REPORT#:[id number] REPORT STATUS: Signed DATE:11/01/19 TIME: 1231 PATIENT: SHANNAN CAMPBELL UNIT #: [id number] ROOM/BED: AGE: 34 SEX: M PCP PHYS: No Primary or Family Ph ysician SERVICE DT: AUTHOR: Genna Munoz PUBLISHING AGENT * ALL edits or amendments must be made on the [employer]/computer document * Genna Munoz 11/01/19 1231: HPI-Dental/Mouth [...] Saw Pt Alone I have reviewed the PA/PUBLISHING AGENT's note and plan of car e. I was available for consultation as needed at al l times during the patient's visit in the emergency department. I agree with the clinical impression , plan and disposition. at 1237 at 1300 RPT #:[id number] END OF REPORT
[2022-09-07] MEDS ORDERED: NA CHLORIDE 0.9% 1,000 ML ONE (21:33)
[2022-09-07 21:38] LABS: Absolute Lymphocytes (CBC) 1.2 K/uL (0.7-4.9); Hematocrit 42.2 % (39.6-49.0); Lymphocytes % 8.1 % (15.3-44.8); MCV 84.2 fL (80-100); MPV 7.7 fL (7.6-11.3); RBC Red Blood Cell Count 5.01 M/uL (4.33-5.43)
[2022-09-07 21:56] LABS: Urine Bilirubin NEGATIVE (Negative); Urine Blood Negative (Negative); Urine Clarity Clear (Clear); Urine Color Colorless (Yellow); Urine Glucose 4+ (Over) (Negative); Urine Protein NEGATIVE (Negative); Urine Urobilinogen Normal (Normal)
[2022-09-07 22:00] LABS: Potassium 4.1 mEq/L (3.5-5.1)
[2022-09-07] MEDS ORDERED: INSULIN -REGULAR HUMAN 50 UNIT/0.5 ML ML ONE (22:31)
--- NOTE | 2022-09-07 23:05 | EDPHYS ---
Physician Documentation [facility] Name: Arsalan Campbell Age: 37 yrs Sex: Male : 1985 Arrival Date: 09/07/2022 Time: 20:38 Bed 12 Private MD: ED Physician Jerald Dubon HPI: 09/07 23:12 This 37 yrs old Male presents to ER via Ambulatory with complaints of High Blood Sugar. kb 23:12 The patient or guardian reports hyperglycemia. Onset: The symptoms/episode kb began/occurred today. Associated signs and symptoms: Pertinent positives: polyuria. Current symptoms: In the emergency department the patient's symptoms are unchanged from the initial presentation. The patient has not experienced similar symptoms in the past. The patient has been recently seen by a physician:. Pt reports he was here yesterday and was told he was probably diabetic because his sugar was high. Today he started taking his blood sugar and it has been in the 400s. Spoke with his father who told him he should come back in for that. Reports polyuria. . Historical: - Allergies: 21:06 No Known Allergies; vc1 - PMHx: 21:06 Diabetes mellitus; vc1 - PSHx: 21:06 Cholecystectomy; hernia repair; vc1 - Immunization history:: Client reports having NOT received the Covid vaccine. - Social history:: Smoking status: Patient reports the use of cigarette tobacco products, 1.5 PPD. ROS: 23:10 Constitutional: Negative for fever, chills, and weight loss. kb 23:10 Endocrine: Positive for hyperglycemia. 23:10 All other systems are negative. Exam: 23:10 Constitutional: This is a well developed, well nourished patient who is awake, alert, kb and in no acute distress. Head/Face: Normocephalic, atraumatic. ENT: Moist Mucous membranes Cardiovascular: Regular rate and rhythm with a normal S1 and S2. No gallops, murmurs, or rubs. No pulse deficits. Respiratory: Respirations even and unlabored. No increased work of breathing. Talking in full sentences Abdomen/GI: Soft, non-tender. No distention Skin: Warm, dry with normal turgor. Normal color. MS/ Extremity: Pulses equal, no cyanosis. Neurovascular intact. Full, normal range of motion. Neuro: Awake and alert, GCS 15, oriented to person, place, time, and situation. Moves all extremities. Normal gait. Vital Signs: 21:12 BP 142 / 84; Pulse 106; Resp 20; Temp 98.8; Pulse Ox 99% ; Weight 100.24 kg; Height 5 vc1 ft. 7 in. ; Pain 0/10; 23:17 BP 136 / 75; Pulse 102; Resp 18; Pulse Ox 100% on R/A; mb9 21:12 Body Mass Index 34.61 (100.24 kg, 170.18 cm) vc1 21:12 Pain Scale: Adult vc1 MDM: 20:56 Patient medically screened. kb 23:10 Differential diagnosis: DKA, hyperglycemia, new onset diabetes. Data reviewed: vital kb signs, nurses notes. Counseling: I had a detailed discussion with the patient and/or guardian regarding: the historical points, exam findings, and any diagnostic results supporting the discharge/admit diagnosis, lab results, the need for outpatient follow up, a family practitioner, to return to the emergency department if symptoms worsen or persist or if there are any questions or concerns that arise at home. ED course: Pt educated on diet and exercise, as well as, metformin. 2 week supply prescribed to give pt time to make appt with PCP for official diagnosis of diabetes and form treatment plan. 09/07 21:22 Order name: CBC with Diff; Complete Time: 21:45 kb 09/07 21:22 Order name: Basic Metabolic Panel; Complete Time: 22:15 kb 09/07 21:22 Order name: Urinalysis w/ reflexes; Complete Time: 22:00 kb 09/07 21:55 Order name: Glucose, Ancillary Testing; Complete Time: 22:00 EDMS 09/07 23:11 Order name: Glucose, Ancillary Testing; Complete Time: 23:13 EDMS 09/07 21:22 Order name: IV Start; Complete Time: 21:28 kb Administered Medications: 21:28 Drug: NS 0.9% IV 1000 ml Route: IV; Rate: 1000 ml; Site: right antecubital; mb9 22:42 Follow up: Response: No adverse reaction; IV Status: Completed infusion mb9 22:27 Drug: Insulin Regular Human IVP 10 units {Co-Signature: cara (Samra Lane RN).} kl Route: IVP; Site: right antecubital; 22:50 Follow up: Response: No adverse reaction mb9 Disposition: 09/08 03:43 Co-signature as Attending Physician, Jerald Dubon MD I agree with the assessment sp4 and plan of care. I reviewed the patient's care provided by the Advanced Practice Provider and agree with the diagnosis and treatment plan. Disposition Summary: 09/07/22 23:05 Discharge Ordered Location: Home kb Condition: Stable kb Diagnosis - Hyperglycemia, unspecified kb Followup: kb - With: Emergency Department - When: As needed - Reason: Worsening of condition Followup: kb - With: Private Physician - When: 2 - 3 days - Reason: Recheck today's complaints, Continuance of care, Re-evaluation by your physician Discharge Instructions: - Discharge Summary Sheet kb - Hyperglycemia, [id number] kb - Type 2 Diabetes Mellitus, Diagnosis, Adult, [id number] kb Forms: - Medication Reconciliation Form kb - Thank You Letter kb - Antibiotic Education kb - Prescription Opioid Use kb Prescriptions: - Metformin 500 mg Oral Tablet - take 1 tablet by ORAL route once daily for 7 days Then take 1 tablet with kb morning meals AND evening meals; 21 tablet; Refills: 0, Product Selection Permitted Signatures: Dispatcher [employer] EDSD Rena Becerra, MANAGER STRATEGIC ALLIANCES-C MANAGER STRATEGIC ALLIANCES-Nicolasa Christine RN RN Becki Berkowitz RN RN vc1 Samra Lane, VANESSA MENDEZ mb9 Jerald Dubon MD MD sp4 Samra Lane RN mb9 Corrections: (The following items were deleted from the chart) 09/07 23:18 21:22 BETA HYDROXYBUTYRATE+C.LAB.BRZ ordered. kb mb9
--- NOTE | 2022-09-07 23:05 | ER ---
Nurse's Notes [facility] Name: Arsalan Campbell Age: 37 yrs Sex: Male : 1985 Arrival Date: 09/07/2022 Time: 20:38 Bed 12 Private MD: Diagnosis: Hyperglycemia, unspecified Presentation: 09/07 21:05 Chief complaint: Patient states: I was here earlier and my sugar was high, they got it vc1 down and I checked it and noticed it was 447. Ebola Screen: Patient negative for fever greater than or equal to 101.5 degrees Fahrenheit, and additional compatible Ebola Virus Disease symptoms Patient denies exposure to infectious person. Patient denies travel to an Ebola-affected area in the 21 days before illness onset. No symptoms or risks identified at this time. Risk Assessment: Do you want to hurt yourself or someone else? Patient reports no desire to harm self or others. Onset of symptoms was September 07, 2022. 21:05 Method Of Arrival: Ambulatory vc1 21:05 Acuity: BURKE 4 vc1 21:06 Note drinks 12 cokes a day. vc1 21:29 Coronavirus screen: Vaccine status: Patient reports being unvaccinated. Initial Sepsis mb9 Screen: Does the patient meet any 2 criteria? No. Patient's initial sepsis screen is negative. Does the patient have a suspected source of infection? No. Patient's initial sepsis screen is negative. Triage Assessment: 21:12 General: Appears in no apparent distress. comfortable, Behavior is calm, cooperative, vc1 appropriate for age. Pain: Denies pain. EENT: No deficits noted. No signs and/or symptoms were reported regarding the EENT system. Neuro: Reports tired. Cardiovascular: No deficits noted. Respiratory: No deficits noted. GI: No deficits noted. No signs and/or symptoms were reported involving the gastrointestinal system. : Reports urinary frequency. Derm: No deficits noted. No signs and/or symptoms reported regarding the dermatologic system. Musculoskeletal: No deficits noted. No signs and/or symptoms reported regarding the musculoskeletal system. Historical: - Allergies: 21:06 No Known Allergies; vc1 - PMHx: 21:06 Diabetes mellitus; vc1 - PSHx: 21:06 Cholecystectomy; hernia repair; vc1 - Immunization history:: Client reports having NOT received the Covid vaccine. - Social history:: Smoking status: Patient reports the use of cigarette tobacco products, 1.5 PPD. Screenin:28 [facility] ED Fall Risk Assessment (Adult) History of falling in the last 3 months, mb9 including since admission No falls in past 3 months (0 pts) Confusion or Disorientation No (0 pts) Intoxicated or Sedated No (0 pts) Impaired Gait No (0 pts) Mobility Assist Device Used No (0 pt) Altered Elimination No (0 pt) Score/Fall Risk Level 0 - 2 = Low Risk Oriented to surroundings, Maintained a safe environment, Educated pt \T\ family on fall prevention, incl call for assistance when getting out of bed. Abuse screen: Denies threats or abuse. Nutritional screening: No deficits noted. Tuberculosis screening: No symptoms or risk factors identified. Assessment: 21:28 Reassessment: see triage assessment. mb9 22:14 Reassessment: No changes from previously documented assessment. Patient and/or family mb9 updated on plan of care and expected duration. Pain level reassessed. Patient is alert, oriented x 3, equal unlabored respirations, skin warm/dry/pink. 23:17 Reassessment: Patient and/or family updated on plan of care and expected duration. Pain mb9 level reassessed. Patient is alert, oriented x 3, equal unlabored respirations, skin warm/dry/pink. Patient states feeling better. Patient states symptoms have improved. Vital Signs: 21:12 BP 142 / 84; Pulse 106; Resp 20; Temp 98.8; Pulse Ox 99% ; Weight 100.24 kg; Height 5 vc1 ft. 7 in. ; Pain 0/10; 23:17 BP 136 / 75; Pulse 102; Resp 18; Pulse Ox 100% on R/A; mb9 21:12 Body Mass Index 34.61 (100.24 kg, 170.18 cm) vc1 21:12 Pain Scale: Adult vc1 ED Course: 20:44 Patient arrived in ED. ag3 20:46 Rena Becerra FNP-C [facility] kb 20:46 Jerald Dubon MD is Attending Physician. kb 21:06 Triage completed. vc1 21:[address], VANESSA is Primary Nurse. mb9 21:11 Arm band placed on right wrist. vc1 21:28 Urinalysis w/ reflexes Sent. mb9 21:28 Basic Metabolic Panel Sent. mb9 21:28 CBC with Diff Sent. mb9 21:29 Placed in gown. Bed in low position. Call light in reach. Side rails up X 1. Client mb9 placed on continuous cardiac and pulse oximetry monitoring. NIBP monitoring applied. 21:29 No provider procedures requiring assistance completed. Inserted saline lock: 20 gauge mb9 in right antecubital area, using aseptic technique. 23:17 IV discontinued, intact, bleeding controlled, No redness/swelling at site. Pressure mb9 dressing applied. Administered Medications: 21:28 Drug: NS 0.9% IV 1000 ml Route: IV; Rate: 1000 ml; Site: right antecubital; mb9 22:42 Follow up: Response: No adverse reaction; IV Status: Completed infusion mb9 22:27 Drug: Insulin Regular Human IVP 10 units {Co-Signature: cara (Samra Lane RN).} rosie Route: IVP; Site: right antecubital; 22:50 Follow up: Response: No adverse reaction mb9 Medication: 21:29 VIS not applicable for this client. mb9 Outcome: 23:05 Discharge ordered by MD. mahoney 23:17 Discharged to home ambulatory. mb9 23:17 Condition: stable 23:17 Discharge instructions given to patient, Instructed on discharge instructions, follow up and referral plans. Demonstrated understanding of instructions, follow-up care, medications, Prescriptions given X 1. 23:18 Patient left the ED. mb9 Signatures: Rena Becerra, DOUBLE REAMER OPERATOR-C FARHAN-Nicolasa Christine RN RN kl Gomez, Alice 3 Becki Gao RN RN vc1 Samra Lane RN RN mb9 Samra Lane RN mb9 Corrections: (The following items were deleted from the chart) 23:18 21:28 BETA HYDROXYBUTYRATE+C.LAB.BRZ drawn and sent. mb9 mb9
[2022-09-08 01:10] VITALS: BP 142/84; TEMP 98.8; O2SAT 99
== END 2022-09-07 23:18 | disposition home or self-care (01) ==
LOC: ER 20:38
DX: E11.65 Type 2 diabetes mellitus with hyperglycemia (principal); F17.210 Nicotine dependence, cigarettes, uncomplicated
CPT/HCPCS: 96361; 85025; 80048; 36415; 82947 ×2; 81003; 96374; 99284; J1815; J7030

== ENCOUNTER → 2023-05-18 | Emergency (ER) | payer OTHER, SELFPAY ==
[~2023-05-18] MED LIST: DICYCLOMINE HCL 10 MG CAP ONE; MAGNES/ALUMIN/SIMET 30ML UCUP ONE; ONDANSETRON 4 MG (ODT) TAB ONE
[2023-05-18 14:47] LABS: Hematocrit 43.9 % (39.6-49.0); Lymphocytes % 36.1 % (15.3-44.8); MCV 85.5 fL (80-100); MPV 7.6 fL (7.6-11.3); Platelets 414 thou/uL (152-406); RBC Red Blood Cell Count 5.13 M/uL (4.33-5.43)
[2023-05-18 14:57] LABS: SARS-CoV-2 Antigen Rapid Res Negative (Negative)
[2023-05-18 15:02] LABS: Albumin 3.1 g/dL (3.4-5.0); Bilirubin Total 0.2 mg/dL (0.2-1.0); Potassium 3.9 mEq/L (3.5-5.1); Protein, Total 6.7 g/dL (6.4-8.2)
--- NOTE | 2023-05-18 15:49 | EDPHYS ---
Physician Documentation [facility] Name: Arsalan Campbell Age: 38 yrs Sex: Male : 1985 Arrival Date: 05/18/2023 Time: 14:04 Bed 20 Private MD: ED Physician Rustam Connolly HPI: 05/18 14:43 This 38 yrs old Male presents to ER via Ambulatory with complaints of Abdominal Pain, rt Nausea. 14:43 Patient presents to the eating with cough, congestion, nausea starting yesterday. He rt also reports epigastric pain. Reports diarrhea, no vomiting. Reports a sore throat but no other acute complaints, symptoms are moderate severity, no other aggravating or elevating factors.. Historical: - Allergies: 14:15 No Known Allergies; ph - PMHx: 14:15 diabetes mellitus; ph - PSHx: 14:15 Cholecystectomy; hernia repair; ph - Immunization history:: Adult Immunizations unknown. - Social history:: Smoking status: Patient reports the use of cigarette tobacco products, smokes one pack cigarettes per day. ROS: 14:43 Constitutional: Negative for fever, chills, and weight loss, Cardiovascular: Negative rt for chest pain, palpitations, and edema, MS/Extremity: Negative for injury and deformity, Skin: Negative for injury, rash, and discoloration, Neuro: Negative for headache, weakness, numbness, tingling, and seizure, 14:43 ENT: Positive for rhinorrhea, sinus pain, 14:43 Respiratory: Positive for cough, Negative for shortness of breath, 14:43 Abdomen/GI: Positive for abdominal pain, nausea, diarrhea, Exam: 14:43 Constitutional: This is a well developed, well nourished patient who is awake, alert, rt and in no acute distress. Head/Face: Normocephalic, atraumatic. Chest/axilla: Normal chest wall appearance and motion. Nontender with no deformity. No lesions are appreciated. Cardiovascular: Regular rate and rhythm with a normal S1 and S2. No gallops, murmurs, or rubs. Normal PMI, no JVD. No pulse deficits. Respiratory: Lungs have equal breath sounds bilaterally, clear to auscultation and percussion. No rales, rhonchi or wheezes noted. No increased work of breathing, no retractions or nasal flaring. Abdomen/GI: Soft, non-tender, with normal bowel sounds. No distension or tympany. No guarding or rebound. No evidence of tenderness throughout. Skin: Warm, dry with normal turgor. Normal color with no rashes, no lesions, and no evidence of cellulitis. MS/ Extremity: Pulses equal, no cyanosis. Neurovascular intact. Full, normal range of motion. Neuro: Awake and alert, GCS 15, oriented to person, place, time, and situation. Cranial nerves II-XII grossly intact. Motor strength 5/5 in all extremities. Sensory grossly intact. Cerebellar exam normal. Normal gait. Psych: Awake, alert, with orientation to person, place and time. Behavior, mood, and affect are within normal limits. 14:43 ENT: Mild posterior pharyngeal erythema without exudates or tonsillar hypertrophy, uvula is midline. Vital Signs: 14:14 BP 129 / 92; Pulse 78; Resp 18; Temp 98.4; Pulse Ox 99% on R/A; Weight 102.51 kg; ph Height 5 ft. 7 in. ; 15:18 BP 131 / 89; Pulse 81; Resp 16; Pulse Ox 100% on R/A; tl4 14:14 Body Mass Index 35.40 (102.51 kg, 170.18 cm) ph MDM: 14:10 Patient medically screened. rt 15:54 Differential diagnosis: Viral syndrome, pancreatitis, gastritis. Data reviewed: vital rt signs, nurses notes, lab test result(s). I considered the following discharge prescriptions or medication management in the emergency department Medications were administered in the Emergency Department. See MAR. Test considered but Not performed: Other Details No focal right upper, right lower quadrant tenderness, symptoms are improving treatment in the ED, stable labs, benign abdominal examination, ultrasound gallbladder, CT scan of the abdomen pelvis not indicated.. Care significantly affected by the following chronic conditions: Diabetes. Counseling: I had a detailed discussion with the patient and/or guardian regarding the historical points, exam findings, and any diagnostic results supporting the discharge/admit diagnosis, lab results, radiology results, the need for outpatient follow up, to return to the emergency department if symptoms worsen or persist or if there are any questions or concerns that arise at home. Response to treatment: the patient's symptoms have resolved after treatment. 05/18 14:19 Order name: CBC with Diff; Complete Time: 15:45 rt 02/13 14:19 Order name: CMP; Complete Time: 15:45 rt 05/18 14:19 Order name: Lipase; Complete Time: 15:45 rt 05/18 14:19 Order name: Influenza Screen (a \T\ B); Complete Time: 15:45 rt 05/18 14:19 Order name: SARS RAPID; Complete Time: 15:45 rt 05/18 14:19 Order name: Strep rt 05/18 14:52 Order name: Throat Culture EDDE 05/18 14:19 Order name: IV Saline Lock; Complete Time: 14:37 rt 05/18 14:19 Order name: Labs collected and sent; Complete Time: 14:37 rt Administered Medications: 14:41 Drug: Ondansetron Oral Disintegrating Tablet Oral Disintegrating Tablet 4 mg PO once tl4 Route: PO; 15:16 Follow up: Response: Nausea is decreased tl4 14:41 Drug: Alum-Mag Hydroxide-Simeth PO Suspension (200 mg-200 mg-20 mg/5 mL) 30 ml PO once tl4 Route: PO; 15:15 Follow up: Response: Pain is decreased tl4 14:41 Drug: Dicyclomine PO 20 mg PO once Route: PO; tl4 15:14 Follow up: Response: Pain is decreased tl4 Disposition Summary: 05/18/23 15:49 Discharge Ordered Notes: Location: Home rt Problem: new rt Symptoms: are resolved rt Condition: Stable rt Diagnosis - Epigastric pain rt - Nausea rt Followup: rt - With: Private Physician - When: 2 - 3 days - Reason: Discharge Instructions: - Discharge Summary Sheet rt - Abdominal Pain, Adult rt - Nausea, Adult, [id number] rt Forms: - Work release form rt - Medication Reconciliation Form rt - Thank You Letter rt - Antibiotic Education rt - Prescription Opioid Use rt - Patient Portal Instructions rt - Leadership Thank You Letter rt Prescriptions: - ondansetron 4 mg Oral Tablet,disintegrating - take 1 tablet ORAL route every 6 hours As needed; 18 tablet; Refills: 0, rt Product Selection Permitted - dicyclomine 10 mg Oral capsule - take 1 capsule ORAL route 4 times per day; 15 capsule; Refills: 0, Product rt Selection Permitted Signatures: Dispatcher [employer] Radha Cabrera RN RN Rustam Connolly MD MD rt Logdahl, Reji, RN RN tl4
--- NOTE | 2023-05-18 15:49 | ER ---
Nurse's Notes [facility] Name: Arsalan Campbell Age: 38 yrs Sex: Male : 1985 Arrival Date: 05/18/2023 Time: 14:04 Bed 20 Private MD: Diagnosis: Epigastric pain;Nausea Presentation: 05/18 14:14 Chief complaint: Patient states: epigastric pain, nausea, sore throat, cough and fever ph TMAX 100, symptoms started Wednesday. Coronavirus screen: Vaccine status: Patient reports being unvaccinated. Ebola Screen: No symptoms or risks identified at this time. Initial Sepsis Screen: Does the patient meet any 2 criteria? No. Patient's initial sepsis screen is negative. Does the patient have a suspected source of infection? No. Patient's initial sepsis screen is negative. Risk Assessment: Do you want to hurt yourself or someone else? Patient reports no desire to harm self or others. Onset of symptoms was May 18, 2023. 14:14 Method Of Arrival: Ambulatory ph 14:14 Acuity: BURKE 3 ph Triage Assessment: 15:16 General: Appears uncomfortable, Behavior is calm, cooperative. Pain: Complains of pain tl4 in abdomen. EENT: No deficits noted. No signs and/or symptoms were reported regarding the EENT system. Neuro: No deficits noted. Denies weakness dizziness, headache. Cardiovascular: No deficits noted. Denies chest pain, diaphoresis, fatigue, lightheadedness, palpitations. Respiratory: No deficits noted. Denies cough, shortness of breath. GI: Reports lower abdominal pain, diarrhea, nausea, vomiting. : No deficits noted. No signs and/or symptoms were reported regarding the genitourinary system. Derm: No deficits noted. No signs and/or symptoms reported regarding the dermatologic system. Historical: - Allergies: 14:15 No Known Allergies; ph - PMHx: 14:15 diabetes mellitus; ph - PSHx: 14:15 Cholecystectomy; hernia repair; ph - Immunization history:: Adult Immunizations unknown. - Social history:: Smoking status: Patient reports the use of cigarette tobacco products, smokes one pack cigarettes per day. Screenin:39 [facility] ED Fall Risk Assessment (Adult) History of falling in the last 3 months, db including since admission No falls in past 3 months (0 pts) Confusion or Disorientation No (0 pts) Intoxicated or Sedated No (0 pts) Impaired Gait No (0 pts) Mobility Assist Device Used No (0 pt) Altered Elimination No (0 pt) Score/Fall Risk Level 0 - 2 = Low Risk Oriented to surroundings, Maintained a safe environment. Abuse screen: Denies threats or abuse. Denies injuries from another. Nutritional screening: No deficits noted. Tuberculosis screening: No symptoms or risk factors identified. Assessment: 14:39 Reassessment: Patient appears in no apparent distress at this time. Patient and/or db family updated on plan of care and expected duration. Pain level reassessed. Patient is alert, oriented x 3, equal unlabored respirations, skin warm/dry/pink. General: Appears in no apparent distress. comfortable, Behavior is calm, cooperative. Neuro: Level of Consciousness is awake, alert, obeys commands, Oriented to person, place, time, situation. Respiratory: Airway is patent Respiratory effort is even, unlabored, Respiratory pattern is regular, symmetrical. 15:22 GI: Bowel sounds present X 4 quads. Abd is soft and non tender X 4 quads. tl4 Vital Signs: 14:14 BP 129 / 92; Pulse 78; Resp 18; Temp 98.4; Pulse Ox 99% on R/A; Weight 102.51 kg; ph Height 5 ft. 7 in. ; 15:18 BP 131 / 89; Pulse 81; Resp 16; Pulse Ox 100% on R/A; tl4 14:14 Body Mass Index 35.40 (102.51 kg, 170.18 cm) ph ED Course: 14:08 Patient arrived in ED. kj1 14:08 Rustam Connolly MD is Attending Physician. rt 14:15 Triage completed. ph 14:15 Arm band placed on Patient placed in an exam room, on a stretcher. ph 14:20 Reji Hooks, VANESSA is Primary Nurse. tl4 14:25 Inserted saline lock: 22 gauge in right antecubital area, using aseptic technique. db Blood collected. 14:42 Strep Sent. tl4 14:42 SARS RAPID Sent. tl4 14:42 Influenza Screen (a \T\ B) Sent. tl4 14:42 CBC with Diff Sent. tl4 14:42 CMP Sent. tl4 14:42 Lipase Sent. tl4 15:22 No provider procedures requiring assistance completed. tl4 15:23 Patient has correct armband on for positive identification. Placed in gown. Bed in low tl4 position. Call light in reach. Side rails up X 1. Provided Education on: ed process. Client placed on continuous cardiac and pulse oximetry monitoring. NIBP monitoring applied. Door closed. Noise minimized. Lights dimmed. Moved to private room. Warm blanket given. 15:59 IV discontinued, intact, bleeding controlled, No redness/swelling at site. Pressure ap3 dressing applied. Administered Medications: 14:41 Drug: Ondansetron Oral Disintegrating Tablet Oral Disintegrating Tablet 4 mg PO once tl4 Route: PO; 15:16 Follow up: Response: Nausea is decreased tl4 14:41 Drug: Alum-Mag Hydroxide-Simeth PO Suspension (200 mg-200 mg-20 mg/5 mL) 30 ml PO once tl4 Route: PO; 15:15 Follow up: Response: Pain is decreased tl4 14:41 Drug: Dicyclomine PO 20 mg PO once Route: PO; tl4 15:14 Follow up: Response: Pain is decreased tl4 Medication: 15:24 VIS not applicable for this client. tl4 Outcome: 15:49 Discharge ordered by . rt 15:59 Discharged to home ambulatory, ap3 15:59 Condition: good 15:59 Discharge instructions given to patient, Instructed on discharge instructions, follow up and referral plans. medication usage, Demonstrated understanding of instructions, follow-up care, medications, Prescriptions given X 2, 15:59 Patient left the ED. ap3 Signatures: Radha Jung RN RN ph Prokisch, Amanda, RN RN ap3 Mala Becerra kj1 Jessica Iverson RN RN db [place], Ryan, MD MD rt Reji Hooks RN RN tl4 Corrections: (The following items were deleted from the chart) 14:38 14:37 Inserted saline lock: 22 gauge in right antecubital area, using aseptic db technique. Blood collected. db
[2023-05-18 16:22] VITALS: BP 131/89; TEMP 98.4; O2SAT 100
== END ==
LOC: ER 14:04
DX: R10.13 Epigastric pain (principal); R11.0 Nausea; E11.9 Type 2 diabetes mellitus without complications; F17.210 Nicotine dependence, cigarettes, uncomplicated; Z11.52 Encounter for screening for COVID-19
CPT/HCPCS: 36415; 80053; 83690; 85025; 87070; 87081; 87804; 87811; Q0162

== ENCOUNTER 2024-03-22 06:00 | Emergency (ER) | payer OTHER, SELFPAY ==
[2024-03-22] MEDS ORDERED: ALBUTEROL 2.5 MG/3 ML NEB SOL ONE (06:47)
[2024-03-22 06:48] LABS: Absolute Basophils 0.2 K/uL (0-0.5); Absolute Eosinophils 0.2 K/uL (0-0.5); Absolute Lymphocytes (CBC) 3.5 K/uL (0.7-4.9); Absolute Neutrophil 7.1 K/uL (1.8-8.0); Basophils % 1.5 % (0-1.3); Hematocrit 46.1 % (39.6-49.0); Hemoglobin 15.2 g/dL (13.6-17.9); Lymphocytes % 29.2 % (15.3-44.8); MCH 28.8 pg (27.0-35.0); MCV 87.5 fL (80-100); MPV 8.4 fL (7.6-11.3); Neutrophils % 59.3 % (41.7-73.7); Platelets 391 thou/uL (152-406); RBC Red Blood Cell Count 5.27 M/uL (4.33-5.43)
[2024-03-22] MEDS ORDERED: IBUPROFEN 400 MG TAB ONE (06:48)
[2024-03-22] MEDS ORDERED: ONDANSETRON 4 MG (ODT) TAB ONE (06:48)
[2024-03-22] MEDS ORDERED: BENZONATATE 100 MG CAP PO ONE (06:48)
[2024-03-22] MEDS ORDERED: GUAIFENESIN/DM 5 ML UCUP ONE (06:49)
[2024-03-22 07:06] LABS: Albumin 3.4 g/dL (3.4-5.0); Albumin/Globulin Ratio 0.9 (1.1-1.8); Anion Gap 8.1 mEq/L (5.0-15.0); Bilirubin Total 0.4 mg/dL (0.2-1.0); Globulin 3.6 g/dL (2.3-3.5); Potassium 4.1 mEq/L (3.5-5.1)
--- NOTE | 2024-03-22 07:16 | ER ---
Nurse's Notes [facility] Name: Arsalan Campbell Age: 38 yrs Sex: Male : 1985 Arrival Date: 03/22/2024 Time: 06:00 Bed 5 Private MD: Diagnosis: Acute pharyngitis, acute cough, Uncontrolled diabetes mellitus type II Presentation: 03/22 06:10 Chief complaint: Patient states: cough, sore throat, body aches. ha1 06:10 Coronavirus screen: Client denies travel out of the [place] in the last 14 days. Ebola ha1 Screen: No symptoms or risks identified at this time. Initial Sepsis Screen: Does the patient meet any 2 criteria? Yes Does the patient have a suspected source of infection? No. Patient's initial sepsis screen is negative. Risk Assessment: Do you want to hurt yourself or someone else? Patient reports no desire to harm self or others. Onset of symptoms was March 22, 2024. 06:10 Method Of Arrival: Ambulatory ha1 06:10 Acuity: BURKE 3 ha1 Historical: - Allergies: 06:41 No Known Allergies; ha1 - PMHx: 06:29 diabetes mellitus; ay - PSHx: 06:29 Cholecystectomy; hernia repair; ay - Immunization history:: Adult Immunizations not up to date. - Infectious Disease History:: Denies. - Family history:: not pertinent. - Social history:: Smoking status: Patient reports the use of cigarette tobacco products, smokes one pack cigarettes per day. Patient uses. Screenin:29 [facility] ED Fall Risk Assessment (Adult) History of falling in the last 3 months, ay including since admission No falls in past 3 months (0 pts) Confusion or Disorientation No (0 pts) Intoxicated or Sedated No (0 pts) Impaired Gait No (0 pts) Mobility Assist Device Used No (0 pt) Altered Elimination No (0 pt) Score/Fall Risk Level 0 - 2 = Low Risk Oriented to surroundings, Maintained a safe environment, Educated pt \T\ family on fall prevention, incl call for assistance when getting out of bed. Abuse screen: Denies threats or abuse. Nutritional screening: No deficits noted. Tuberculosis screening: No symptoms or risk factors identified. Assessment: 06:25 General: Appears uncomfortable, Behavior is calm, cooperative. Pain: Denies pain. ay Neuro: Level of Consciousness is awake, alert, obeys commands, Oriented to person, place, time, situation, Speech is normal. Cardiovascular: Capillary refill < 3 seconds. Respiratory: Airway is patent Trachea midline Respiratory effort is even, unlabored, Breath sounds with crackles bilaterally. Breath sounds are diminished bilaterally. GI: Abdomen is round. : No signs and/or symptoms were reported regarding the genitourinary system. EENT: Nares Throat is clear with gag reflex present. Derm: Skin is intact. Musculoskeletal: Capillary refill < 3 seconds. 07:12 General: Appears in no apparent distress. Behavior is calm, cooperative, appropriate ap3 for age. Pain: Denies pain. Neuro: Level of Consciousness is awake, alert, obeys commands, Oriented to person, place, time, situation, Appropriate for age. Cardiovascular: Patient's skin is warm and dry. Respiratory: Reports cough that is Airway is patent Respiratory effort is even, unlabored, Respiratory pattern is regular, symmetrical. Vital Signs: 06:39 BP 108 / 74; Pulse 78; Resp 20; Temp 98.4; Pulse Ox 98% ; Weight 102.06 kg; Height 5 vc1 ft. 7 in. ; Pain 6/10; 06:39 BP 108 / 84; Pulse 89; Resp 19 S; Temp 98.1(T); Pulse Ox 98% on R/A; Weight 102.06 kg; ha1 Height 5 ft. 9 in. ; 07:40 BP 117 / 64; Pulse 80; Resp 17 S; Pulse Ox 99% on R/A; kc6 06:39 Body Mass Index 35.24 (102.06 kg, 170.18 cm) vc1 06:39 Pain Scale: Adult vc1 [place] Coma Score: 06:29 Eye Response: spontaneous(4). Motor Response: obeys commands(6). Verbal Response: ay oriented(5). Total: 15. 06:40 Eye Response: spontaneous(4). Motor Response: obeys commands(6). Verbal Response: sp4 oriented(5). Total: 15. ED Course: 06:04 Patient arrived in ED. gm2 06:09 Jerald Dubon MD is Attending Physician. sp4 06:25 Lou Clifton RN is Primary Nurse. ay 06:29 Patient has correct armband on for positive identification. Bed in low position. Call ay light in reach. Side rails up X2. Provided Education on: plan of care. 06:29 Inserted saline lock: 20 gauge in right antecubital area, using aseptic technique. ay Oxygen administration via nasal cannula \T\ 2L/min. 06:36 CMP Sent. ay 06:36 CBC with Diff Sent. ay 06:36 Influenza Screen (a \T\ B) Sent. ay 06:38 Triage completed. ha1 06:40 Arm band placed on right wrist. vc1 07:14 Antione Campbell DO is Referral Physician. sp4 07:40 No provider procedures requiring assistance completed. kc6 07:44 IV discontinued, intact, bleeding controlled, No redness/swelling at site. Pressure ap3 dressing applied. Administered Medications: 06:57 Drug: Ondansetron PO 8 mg PO once Route: PO; ay 07:02 Follow up: Response: No adverse reaction ay 06:57 Drug: Ibuprofen PO 800 mg PO once Route: PO; ay 07:00 Follow up: Response: No adverse reaction ay 06:58 Drug: Tessalon Perle PO 200 mg PO once Route: PO; ay 07:03 Follow up: Response: No adverse reaction ay 06:58 Drug: Dextromethorphan-Guaifenesin PO Liquid 10 mg-100 mg/5 mL 20 ml PO once Route: PO; ay 07:02 Follow up: Response: No adverse reaction ay 06:58 Drug: Albuterol Inhalation 2.5 mg Inhalation once Route: Inhalation; ay 07:02 Follow up: Response: No adverse reaction ay 07:40 Drug: AZITHromycin PO 500 mg PO once Route: PO; kc6 07:44 Follow up: Response: Medication administered at discharge. ap3 Medication: 06:29 VIS not applicable for this client. ay Outcome: 07:15 Discharge ordered by MD. sp4 07:44 Discharged to home ambulatory, ap3 07:44 Condition: good 07:44 Discharge instructions given to patient, Instructed on discharge instructions, follow up and referral plans. Demonstrated understanding of instructions, follow-up care, medications, Prescriptions given X 4, 07:45 Patient left the ED. ap3 Signatures: Archana Danielle RN RN ap3 Becki Gao RN RN vc1 Evie Baker RN RN ha1 Marisel Stevenson RN RN kc6 Jerald Dubon MD MD sp4 Kaitlyn Iverson 2 Lou Clifton, RN VANESSA ay Corrections: (The following items were deleted from the chart) 07: 07:11 General: Appears uncomfortable, Behavior is calm, cooperative, appropriate for ap3 age, ap3 07:13 07:11 Pain: Complains of pain in back Pain currently is 8 out of 10 on a pain scale. [id number] 07: 07:11 Neuro: Level of Consciousness is awake, alert, obeys commands, Oriented to ap3 person, place, time, situation, Speech is normal, ap3 07:13 07:11 Cardiovascular: Patient's skin is warm and dry. ap3 ap3 07: 07:11 Respiratory: Airway is patent Respiratory effort is even, unlabored, Respiratory ap3 pattern is regular, symmetrical, ap3
--- NOTE | 2024-03-22 07:16 | EDPHYS ---
Physician Documentation [facility] Name: Arsalan Campbell Age: 38 yrs Sex: Male : 1985 Arrival Date: 03/22/2024 Time: 06:00 Bed 5 Private MD: ED Physician Jerald Dubon HPI: 03/22 06:09 This 38 yrs old Male presents to ER via Unassigned with complaints of Cough, sp4 Sore Throat. 06:39 38-year-old male presents with acute sore throat. Also moderate persistent cough. sp4 06:40 Patient states symptoms started 3 days ago.. sp4 Historical: - Allergies: 06:41 No Known Allergies; ha1 - PMHx: 06:29 diabetes mellitus; ay - PSHx: 06:29 Cholecystectomy; hernia repair; ay - Immunization history:: Adult Immunizations not up to date. - Infectious Disease History:: Denies. - Family history:: not pertinent. - Social history:: Smoking status: Patient reports the use of cigarette tobacco products, smokes one pack cigarettes per day. Patient uses. ROS: 06:40 Constitutional: Negative for fever, chills, and weight loss, positive for cough, sore sp4 throat, body aches 06:40 All other systems are negative, Exam: 06:40 Constitutional: This is a well developed, well nourished patient who is awake, alert, sp4 and in no acute distress. Head/Face: Normocephalic, atraumatic. Eyes: Pupils equal round and reactive to light, extra-ocular motions intact. Lids and lashes normal. Conjunctiva and sclera are not injected. Cornea within normal limits. Periorbital areas with no swelling, redness, or edema. ENT: Nares patent. No nasal discharge, no septal abnormalities noted. Tympanic membranes are normal and external auditory canals are clear. Oropharynx with no redness, swelling, or masses, exudates, or evidence of obstruction, uvula midline. Mucous membranes moist. Neck: Trachea midline, no thyromegaly or masses palpated, and no cervical lymphadenopathy. Supple, full range of motion without nuchal rigidity, or vertebral point tenderness. Chest/axilla: Normal chest wall appearance and motion. Nontender with no deformity. No lesions are appreciated. Cardiovascular: Regular rate and rhythm with a normal S1 and S2. No gallops, murmurs, or rubs. Normal PMI, no JVD. No pulse deficits. Respiratory: Lungs have equal breath sounds bilaterally, clear to auscultation and percussion. No rales, rhonchi or wheezes noted. No increased work of breathing, no retractions or nasal flaring. Abdomen/GI: Soft, with normal bowel sounds. No distension or tympany. No guarding or rebound. No evidence of tenderness throughout. Back: No spinal tenderness. No costovertebral tenderness. Skin: Warm, dry with normal turgor. Normal color with no rashes, no lesions, and no evidence of cellulitis. MS/ Extremity: Pulses equal, no cyanosis. Neurovascular intact. Full, normal range of motion. Neuro: Awake and alert, GCS 15, oriented to person, place, time, and situation. Cranial nerves II-XII grossly intact. Motor strength 5/5 in all extremities. Sensory grossly intact. Psych: Awake, alert, with orientation to person, place and time. Behavior, mood, and affect are within normal limits Vital Signs: 06:39 BP 108 / 74; Pulse 78; Resp 20; Temp 98.4; Pulse Ox 98% ; Weight 102.06 kg; Height 5 vc1 ft. 7 in. ; Pain 6/10; 06:39 BP 108 / 84; Pulse 89; Resp 19 S; Temp 98.1(T); Pulse Ox 98% on R/A; Weight 102.06 kg; ha1 Height 5 ft. 9 in. ; 07:40 BP 117 / 64; Pulse 80; Resp 17 S; Pulse Ox 99% on R/A; kc6 06:39 Body Mass Index 35.24 (102.06 kg, 170.18 cm) vc1 06:39 Pain Scale: Adult vc1 Helene Coma Score: 06:29 Eye Response: spontaneous(4). Motor Response: obeys commands(6). Verbal Response: ay oriented(5). Total: 15. 06:40 Eye Response: spontaneous(4). Motor Response: obeys commands(6). Verbal Response: sp4 oriented(5). Total: 15. MDM: 06:20 Medical Screening Exam initiated sp4 03/22 06:10 Order name: Influenza Screen (a \T\ B) sp4 03/22 06:26 Order name: CBC with Diff; Complete Time: 06:54 sp4 03/22 06:26 Order name: CMP; Complete Time: 07:10 sp4 03/22 06:26 Order name: Saline Lock; Complete Time: 06:36 sp4 Administered Medications: 06:57 Drug: Ondansetron PO 8 mg PO once Route: PO; ay 07:02 Follow up: Response: No adverse reaction ay 06:57 Drug: Ibuprofen PO 800 mg PO once Route: PO; ay 07:00 Follow up: Response: No adverse reaction ay 06:58 Drug: Tessalon Perle PO 200 mg PO once Route: PO; ay 07:03 Follow up: Response: No adverse reaction ay 06:58 Drug: Dextromethorphan-Guaifenesin PO Liquid 10 mg-100 mg/5 mL 20 ml PO once Route: PO; ay 07:02 Follow up: Response: No adverse reaction ay 06:58 Drug: Albuterol Inhalation 2.5 mg Inhalation once Route: Inhalation; ay 07:02 Follow up: Response: No adverse reaction ay 07:40 Drug: AZITHromycin PO 500 mg PO once Route: PO; kc6 07:44 Follow up: Response: Medication administered at discharge. ap3 Disposition Summary: 03/22/24 07:15 Discharge Ordered Notes: Location: Home sp4 Problem: new sp4 Symptoms: have improved sp4 Condition: Stable sp4 Diagnosis - Acute pharyngitis, acute cough, Uncontrolled diabetes mellitus type II sp4 Followup: sp4 - With: Antione Campbell DO - When: 7 - 10 days - Reason: Recheck today's complaints Discharge Instructions: - Discharge Summary Sheet sp4 - Diabetes Mellitus and Nutrition, Adult sp4 Forms: - Work release form kc6 - Patient Portal Instructions sp4 Prescriptions: - dextromethorphan-guaifenesin 20-400 mg Oral tablet - take 1 tablet ORAL route every 6 hours PRN cough; 40 tablet; Refills: 0, sp4 Product Selection Permitted - Glipizide 5 mg Oral tablet - take 1 tablet ORAL route once daily before a meal; 90 tablet; Refills: 0, sp4 Product Selection Permitted - Metformin 1,000 mg Oral tablet - take 1 tablet ORAL route every 12 hours with morning and evening meals; 180 sp4 tablet; Refills: 0, Product Selection Permitted - Zithromax Z-Roni 250 mg Oral Tablet - take 1 tablet ORAL route as directed for 5 days Day 1 - take two (2) tablets sp4 one time. Day 2, 3, 4 , 5 take one (1) tablet once daily.; 6 tablet; Refills: 0, Product Selection Permitted - benzonatate 200 mg Oral capsule - take 1 capsule ORAL route every 6 hours as needed for cough; 60 capsule; sp4 Refills: 0, Product Selection Permitted Signatures: Dispatcher [employer] Evie Douglas RN RN ha1 Marisel Stevenson RN RN kc6 Jerald Dubon MD MD sp4 Lou Clifton RN RN Archana Tenorio RN ap3 Corrections: (The following items were deleted from the chart) 06:10 06:10 Influenza Screen (A \T\ B)+[id number].BRZ ordered. EDWI EDWI
[2024-03-22] MEDS ORDERED: AZITHROMYCIN 250 MG TAB ONE (07:38)
[2024-03-22 07:50] VITALS: TEMP 98.4
[2024-03-22 07:52] VITALS: BP 117/64; O2SAT 99
== END 2024-03-22 07:45 | disposition home or self-care (01) ==
LOC: ER 06:00
DX: R05.9 Cough, unspecified (principal); J02.9 Acute pharyngitis, unspecified; F17.210 Nicotine dependence, cigarettes, uncomplicated; E11.65 Type 2 diabetes mellitus with hyperglycemia
CPT/HCPCS: 36415; 80053; 85025; 87804; 99285; J7613; Q0162

== ENCOUNTER 2024-07-03 09:28 | Emergency (ER) | payer SELFPAY ==
[2024-07-03] MEDS ORDERED: HYDROCODONE/CHLORPHEN 5 ML/OSYR ONE (09:54)
[2024-07-03 10:37] LABS: Influenza A Ag Positive; Influenza B Ag Negative; SARS-CoV-2 Antigen Rapid Res Negative (Negative)
--- NOTE | 2024-07-03 10:47 | ER ---
Nurse's Notes [facility] Name: Arsalan Campbell Age: 39 yrs Sex: Male : 1985 Arrival Date: 07/03/2024 Time: 09:28 Bed 12 Private MD: Diagnosis: Influenza due to identified novel influenza A virus Presentation: 07/03 09:43 Chief complaint: Parent and/or Guardian states: cough, sore throat and headache that ss began Wednesday. Coronavirus screen: Client denies travel out of the [place] in the last 14 days. Ebola Screen: Patient denies exposure to infectious person. Patient denies travel to an Ebola-affected area in the 21 days before illness onset. Initial Sepsis Screen: Does the patient meet any 2 criteria? No. Patient's initial sepsis screen is negative. Does the patient have a suspected source of infection? No. Patient's initial sepsis screen is negative. Risk Assessment: Do you want to hurt yourself or someone else? Patient reports no desire to harm self or others. Onset of symptoms was June 30, 2024. :43 Method Of Arrival: Ambulatory ss 09:43 Acuity: BURKE 3 ss Historical: - Allergies: 09:44 No Known Allergies; ss - Home Meds: :44 None [Active]; ss - PMHx: :44 diabetes mellitus; ss - PSHx: 09:44 Cholecystectomy; hernia repair; ss - Immunization history:: Adult Immunizations up to date. - Infectious Disease History:: Denies. - Social history:: Smoking status: Patient reports the use of cigarette tobacco products, smokes one-half pack cigarettes per day. Screenin:43 [facility] ED Fall Risk Assessment (Adult) History of falling in the last 3 months, ss including since admission No falls in past 3 months (0 pts) Confusion or Disorientation No (0 pts) Intoxicated or Sedated No (0 pts) Impaired Gait No (0 pts) Mobility Assist Device Used No (0 pt) Altered Elimination No (0 pt) Score/Fall Risk Level 0 - 2 = Low Risk Oriented to surroundings, Maintained a safe environment. Abuse screen: Denies threats or abuse. Denies injuries from another. Nutritional screening: No deficits noted. Tuberculosis screening: Never had TB. Assessment: :43 General: Appears uncomfortable, ill, Behavior is calm, cooperative, Reports feeling ill ss for 2-3 days, fatigue for 2-3 days. Pain: Denies pain. Neuro: Level of Consciousness is awake, alert, obeys commands, Oriented to person, place, time, situation. Cardiovascular: Capillary refill < 3 seconds is brisk in bilateral fingers. Respiratory: Airway is patent Respiratory effort is even, unlabored, Respiratory pattern is regular, symmetrical. Respiratory: Reports cough that is hacking, persistent since Wednesday. GI: Patient currently denies diarrhea, nausea, vomiting. : No signs and/or symptoms were reported regarding the genitourinary system. EENT: Oral mucosa is moist. Throat is clear. Derm: Skin is intact, is healthy with good turgor, Skin is dry, Skin is pink, warm \T\ dry. normal. 10:56 Reassessment: No changes from previously documented assessment. Patient and/or family ll1 updated on plan of care and expected duration. Pain level reassessed. Patient is alert, oriented x 3, equal unlabored respirations, skin warm/dry/pink. Respiratory: Breath sounds are clear bilaterally. Vital Signs: 09:43 BP 113 / 82; Pulse 88; Resp 18; Pulse Ox 99% ; Weight 99.79 kg (M); Height 5 ft. 6 in. ss ; Pain 0/10; 09:51 Temp 99(O); ss 10:56 Pulse 85; Resp 17; Temp 98.6; Pulse Ox 99% ; Pain 0/10; ll1 09:43 Body Mass Index 35.51 (99.79 kg, 167.64 cm) ss 09:43 Pain Scale: Adult ss 10:56 Pain Scale: Adult ll1 ED Course: 09:35 Patient arrived in ED. mr 09:35 Yana Schwartz PA-C is PHCP. sb4 09:35 Francisco Roman MD is Attending Physician. sb4 09:43 Patient has correct armband on for positive identification. Bed in low position. ss 09:44 Triage completed. ss 09:44 Arm band placed on left wrist. ss 09:54 Group A Streptococcus Rapid Sent. bc6 09:54 COVID-19 Ag + Flu A+B Ag Sent. bc6 09:54 COVID swab sent to lab. Flu and/or RSV swab sent to lab. Strep swab sent to lab. bc6 09:56 Walker, Marta, RN is Primary Nurse. ss 10:35 Chest Pa And Lat (2 Views) XRAY In Process Unspecified. EDMS 10:56 No provider procedures requiring assistance completed. Patient did not have IV access ll1 during this emergency room visit. 10:57 Provided Education on: return to ED for worsening symptoms. ll1 Administered Medications: 09:57 Drug: Tussionex Pennkinetic ER PO Suspension 5 ml PO once Route: PO; ss 10:57 Follow up: Response: No adverse reaction; RASS: Alert and Calm (0) [place] Medication: 09:43 VIS not applicable for this client. ss Outcome: 10:46 Discharge ordered by MD. sb4 10:56 Discharged to home ambulatory, ll1 10:56 Condition: good 10:56 Discharge instructions given to patient, Instructed on discharge instructions, follow up and referral plans. medication usage, Demonstrated understanding of instructions, follow-up care, medications, Prescriptions given X 2, :57 Patient left the ED. [place] Signatures: Dispatcher [employer] EDOH Samra Davis, Regan Reg mr Marta Walker, RN RN Dulce Loza RN RN ll1 Yana Schwartz, PA-C PA-C 4 Maritza Rodrigues 6
--- NOTE | 2024-07-03 10:47 | EDPHYS ---
Physician Documentation [facility] Name: Arsalan Campbell Age: 39 yrs Sex: Male : 1985 Arrival Date: 07/03/2024 Time: 09:28 Bed 12 Private MD: ED Physician Francisco Roman HPI: 07/03 09:46 This 39 yrs old Male presents to ER via Ambulatory with complaints of Sore Throat, sb4 Cough, Headache, Nausea. 09:47 Patient reports sore throat, cough, headache, nausea, congestion that began a few days sb4 ago and got worse last night. Has been taking ibuprofen and using throat spray without significant relief in symptoms. His sick with nausea, vomiting, and diarrhea. Patient denies any nausea, vomiting, or diarrhea. Reports a history of diabetes but is not currently on any medications. Historical: - Allergies: 09:44 No Known Allergies; ss - Home Meds: 09:44 None [Active]; ss - PMHx: 09:44 diabetes mellitus; ss - PSHx: 09:44 Cholecystectomy; hernia repair; ss - Immunization history:: Adult Immunizations up to date. - Infectious Disease History:: Denies. - Social history:: Smoking status: Patient reports the use of cigarette tobacco products, smokes one-half pack cigarettes per day. ROS: 09:47 Abdomen/GI: Negative for abdominal pain, nausea, vomiting, diarrhea, and constipation, sb4 09:47 Constitutional: Positive for malaise, 09:47 ENT: Positive for nasal discharge, sinus pain, 09:47 Respiratory: Positive for cough, 09:47 All other systems are negative, Exam: 09:48 Head/Face: Normocephalic, atraumatic. Eyes: Extra-ocular motions intact. Periorbital sb4 areas with no swelling, redness, or edema. ENT: Mucous membranes moist. Cardiovascular: Regular rate and rhythm with a normal S1 and S2. Respiratory: No increased work of breathing, no retractions or nasal flaring. Abdomen/GI: Soft, non-tender, no distension. Skin: Warm, dry with normal turgor. Normal color with no rashes, no lesions, and no evidence of cellulitis. 09:48 Constitutional: The patient appears alert, awake, obviously ill, 09:48 Respiratory: Breath sounds: are clear throughout, Vital Signs: 09:43 BP 113 / 82; Pulse 88; Resp 18; Pulse Ox 99% ; Weight 99.79 kg (M); Height 5 ft. 6 in. ss ; Pain 0/10; 09:51 Temp 99(O); ss 10:56 Pulse 85; Resp 17; Temp 98.6; Pulse Ox 99% ; Pain 0/10; ll1 09:43 Body Mass Index 35.51 (99.79 kg, 167.64 cm) ss 09:43 Pain Scale: Adult ss 10:56 Pain Scale: Adult ll1 MDM: 09:37 Medical Screening Exam initiated sb4 09:53 Differential diagnosis: bronchitis, group A strep tonsillitis, influenza, pharyngitis, sb4 tonsillitis, upper respiratory infection, viral syndrome. 10:46 Data reviewed: vital signs, nurses notes, lab test result(s), radiologic studies, and sb4 as a result, I will discharge patient. Counseling: I had a detailed discussion with the patient and/or guardian regarding the historical points, exam findings, and any diagnostic results supporting the discharge/admit diagnosis, lab results, radiology results, the need for outpatient follow up, for definitive care, to return to the emergency department if symptoms worsen or persist or if there are any questions or concerns that arise at home. 07/03 09:45 Order name: COVID-19 Ag + Flu A+B Ag; Complete Time: 10:39 sb4 07/03 09:45 Order name: Group A Streptococcus Rapid; Complete Time: 10:28 sb4 07/03 10:30 Order name: Throat Culture EDMS 07/03 09:45 Order name: Chest Pa And Lat (2 Views) XRAY sb4 Administered Medications: 09:57 Drug: Tussionex Pennkinetic ER PO Suspension 5 ml PO once Route: PO; ss 10:57 Follow up: Response: No adverse reaction; RASS: Alert and Calm (0) ll1 Disposition Summary: 07/03/24 10:46 Discharge Ordered Notes: Location: Home sb4 Problem: new sb4 Symptoms: have improved sb4 Condition: Stable sb4 Diagnosis - Influenza due to identified novel influenza A virus sb4 Followup: sb4 - With: Emergency Department - When: As needed - Reason: Trouble breathing, Worsening of condition Discharge Instructions: - Discharge Summary Sheet sb4 - Influenza, Adult, [id number] sb4 Forms: - Work release form sb4 - Patient Portal Instructions sb4 - Leadership Thank You Letter sb4 Prescriptions: - Tessalon Perles 100 mg Oral Capsule - take 1 capsule ORAL route every 8 hours As needed; 15 capsule; Refills: 0, sb4 Product Selection Permitted - Tamiflu 75 mg Oral capsule - take 1 tablet ORAL route every 12 hours for 5 days; 10 tablet; Refills: 0, sb4 Product Selection Permitted Addendum: 07/04/2024 15:30 Co-signature as Attending Physician, Francisco Roman MD I agree with the assessment and c king plan of care. Signatures: Dispatcher [employer] EDFrancisco Morse MD MD cha Blanchard, Shelby, RN RN Dulce Loza RN RN ll1 Yana Schwartz PA-C PA-C sb4
[2024-07-03 11:04] VITALS: BP 113/82; O2SAT 99
--- NOTE | 2024-07-03 11:04 | RAD REPORT ---
Procedure: Chest Pa And Lat (2 Views) HISTORY: Cough COMPARISON: 2022 FINDINGS: The lungs appear clear of acute infiltrate. Chronic peribronchial thickening. No significant pleural effusion noted. The heart is normal size. IMPRESSION: No acute abnormality is displayed.
[2024-07-03 11:07] VITALS: TEMP 98.6
== END 2024-07-03 10:57 | disposition home or self-care (01) ==
LOC: ER 09:28
DX: J10.1 Influenza due to other identified influenza virus with other respiratory manifestations (principal); Z11.52 Encounter for screening for COVID-19; F17.210 Nicotine dependence, cigarettes, uncomplicated
CPT/HCPCS: 36415; 71046; 87070; 87428; 99283

== ENCOUNTER 2024-07-05 09:10 | Emergency (ER) | payer SELFPAY ==
--- NOTE | 2024-07-05 11:17 | RAD REPORT ---
EXAM: Chest Single View HISTORY: 39 years Male flu;Cough COMPARISON: 07/03/2024 FINDINGS: LUNGS/PLEURA: The lungs are clear. No pleural effusions or pneumothorax. No pulmonary edema. CARDIAC/MEDIASTINUM: The cardiac silhouette is within normal limits. UPPER ABDOMEN: No significant abnormality. BONES: No acute abnormality. LINES/TUBES/OTHER: N/A IMPRESSION: No evidence of acute cardiopulmonary disease.
--- NOTE | 2024-07-05 11:25 | ER ---
Nurse's Notes [facility] Name: Arsalan Campbell Age: 39 yrs Sex: Male : 1985 Arrival Date: 07/05/2024 Time: 09:10 Bed DIS3 Private MD: Diagnosis: Influenza due to other identified influenza virus with other respiratory manifestations Presentation: 07/05 09:32 Chief complaint: Patient states: Diagnosed with flu on Wednesday. Still has painful cough ll1 and nausea. Coronavirus screen: Client denies travel out of the [place] in the last 14 days. congestion, cough unrelated to allergies, Client presents with at least one sign or symptom that may indicate coronavirus-19. Standard/surgical mask placed on the client. Ebola Screen: Patient denies travel to an Ebola-affected area in the 21 days before illness onset. Initial Sepsis Screen: Does the patient meet any 2 criteria? No. Patient's initial sepsis screen is negative. Does the patient have a suspected source of infection? No. Patient's initial sepsis screen is negative. Risk Assessment: Do you want to hurt yourself or someone else? Patient reports no desire to harm self or others. Onset of symptoms was July 02, 2024. 09:32 Method Of Arrival: Ambulatory ll1 09:32 Acuity: BURKE 4 ll1 Triage Assessment: 09:33 General: Appears uncomfortable, Behavior is calm, cooperative, appropriate for age, ll1 Reports fever for feeling ill for fatigue for. Neuro: Reports headache. Respiratory: Reports cough that is pain with cough. Historical: - Allergies: 09:32 No Known Allergies; ll1 - PMHx: 09:32 diabetes mellitus; ll1 - PSHx: 09:32 Cholecystectomy; hernia repair; ll1 - Immunization history:: Adult Immunizations up to date. - Infectious Disease History:: Denies. - Social history:: Smoking status: Patient reports the use of cigarette tobacco products, smokes one pack cigarettes per day. - Family history:: not pertinent. - Hospitalizations: : No recent hospitalization is reported. Screenin:47 [facility] ED Fall Risk Assessment (Adult) History of falling in the last 3 months, kc6 including since admission No falls in past 3 months (0 pts) Confusion or Disorientation No (0 pts) Intoxicated or Sedated No (0 pts) Impaired Gait No (0 pts) Mobility Assist Device Used No (0 pt) Altered Elimination No (0 pt) Score/Fall Risk Level 0 - 2 = Low Risk Oriented to surroundings, Maintained a safe environment, Educated pt \T\ family on fall prevention, incl call for assistance when getting out of bed. Abuse screen: Denies threats or abuse. Denies injuries from another. Nutritional screening: No deficits noted. Tuberculosis screening: No symptoms or risk factors identified. Assessment: 09:47 General: Appears in no apparent distress. comfortable, well groomed, well developed, kc6 Behavior is calm, cooperative, appropriate for age, Reports feeling ill for > 3 days. Pain: Denies pain. Neuro: Level of Consciousness is awake, alert, obeys commands, Oriented to person, place, time, situation, Appropriate for age. Cardiovascular: Capillary refill < 3 seconds. Respiratory: Reports cough that is productive, persistent pain with cough pain with respiration Airway is patent Trachea midline Respiratory effort is even, unlabored, Respiratory pattern is regular, symmetrical. GI: Abdomen is round non-distended, Reports nausea, Patient currently denies abdominal pain, diarrhea, vomiting. : No signs and/or symptoms were reported regarding the genitourinary system. EENT: Reports nasal congestion. Derm: No signs and/or symptoms reported regarding the dermatologic system. Skin is intact, is healthy with good turgor, Skin is pink, warm \T\ dry. Musculoskeletal: No signs and/or symptoms reported regarding the musculoskeletal system. Circulation, motion, and sensation intact. Range of motion: intact in all extremities. 10:46 Reassessment: Patient appears in no apparent distress at this time. No changes from kc6 previously documented assessment. Patient and/or family updated on plan of care and expected duration. Pain level reassessed. Patient is alert, oriented x 3, equal unlabored respirations, skin warm/dry/pink. Vital Signs: 09:32 Weight 99.34 kg; Height 5 ft. 6 in. ; Pain 6/10; ll1 10:00 BP 130 / 78; kb4 10:00 Pulse 88; Pulse Ox 94% ; kb4 10:00 Resp 16; kb4 09:32 Body Mass Index 35.35 (99.34 kg, 167.64 cm) ll1 09:32 Pain Scale: Adult ll1 ED Course: 09:20 Patient arrived in ED. im 09:20 Ralph Odell DO is Attending Physician. ms3 09:20 Attending Physician role handed off by Ralph Odell DO rn 09:20 Mitul Harrington MD is Attending Physician. rn 09:32 Arm band placed on Patient placed in an exam room, on a stretcher. ll1 09:33 Triage completed. ll1 09:46 Marisel Stevenson, RN is Primary Nurse. kc6 09:46 Patient has correct armband on for positive identification. Bed in low position. Call kc6 light in reach. Side rails up X 1. Adult w/ patient. Pulse ox on. NIBP on. Door closed. Noise minimized. Lights dimmed. Pillow given. Verbal reassurance given. 09:47 Patient maintains SpO2 saturation greater than 95% on room air. kc6 10:20 XRAY Chest (1 view) In Process Unspecified. EDMS 11:44 No provider procedures requiring assistance completed. Patient did not have IV access kc6 during this emergency room visit. Administered Medications: No medications were administered Medication: 11:44 VIS not applicable for this client. kc6 Outcome: 11:24 Discharge ordered by . rn 11:44 Discharged to home ambulatory, with family, with significant other, kc6 11:44 Condition: good 11:44 Discharge instructions given to patient, Instructed on discharge instructions, follow up and referral plans. Demonstrated understanding of instructions, follow-up care, 11:44 Patient left the ED. kc6 Signatures: Dispatcher [employer] EDMS Mitul Harrington MD MD rn Lewis, Lynsay, RN RN 1 Ralph Odell DO DO ms3 Marisel Stevenson RN RN kc6 Mary Zhu Kayla kb4
--- NOTE | 2024-07-05 11:25 | EDPHYS ---
Physician Documentation [facility] Name: Arsalan Campbell Age: 39 yrs Sex: Male : 1985 Arrival Date: 07/05/2024 Time: 09:10 Bed DIS3 Private MD: ED Physician Mitul Harrington HPI: 07/05 09:35 This 39 yrs old Male presents to ER via Ambulatory with complaints of Flu Symptoms. rn 09:35 The patient or guardian reports cough, flu symptoms. Onset: The symptoms/episode rn began/occurred 2 day(s) ago. Severity of symptoms: At their worst the symptoms were mild, in the emergency department the symptoms are unchanged. Modifying factors: The symptoms are alleviated by nothing, the symptoms are aggravated by nothing. The patient has not experienced similar symptoms in the past. Patient reports diagnosed with flu on Wednesday. Is an active smoker. Still coughing and has soreness in chest with cough so came back for evaluation. Here with 2 family members now who have flu symptoms on their own.. Historical: - Allergies: 09:32 No Known Allergies; ll1 - PMHx: 09:32 diabetes mellitus; ll1 - PSHx: 09:32 Cholecystectomy; hernia repair; ll1 - Immunization history:: Adult Immunizations up to date. - Infectious Disease History:: Denies. - Social history:: Smoking status: Patient reports the use of cigarette tobacco products, smokes one pack cigarettes per day. - Family history:: not pertinent. - Hospitalizations: : No recent hospitalization is reported. ROS: 09:35 Constitutional: Negative for fever, chills, and weight loss, Cardiovascular: Negative rn for palpitations, and edema, Respiratory: Positive for cough Abdomen/GI: Negative for abdominal pain, nausea, vomiting, diarrhea, and constipation, MS/Extremity: Negative for injury and deformity, Skin: Negative for injury, rash, and discoloration, Neuro: Negative for headache, weakness, numbness, tingling, and seizure, Exam: 09:35 Constitutional: This is a well developed, well nourished patient who is awake, alert, rn and in no acute distress. ENT: Dry mucous membranes, no stridor Cardiovascular: Regular rate and rhythm. No pulse deficits. Respiratory: No tachypnea, intermittent cough Neuro: Awake and alert, GCS 15 Vital Signs: 09:32 Weight 99.34 kg; Height 5 ft. 6 in. ; Pain 6/10; ll1 10:00 BP 130 / 78; kb4 10:00 Pulse 88; Pulse Ox 94% ; kb4 10:00 Resp 16; kb4 09:32 Body Mass Index 35.35 (99.34 kg, 167.64 cm) ll1 09:32 Pain Scale: Adult ll1 MDM: 09:20 Medical Screening Exam initiated rn 11:23 Differential Diagnosis: Influenza Upper Respiratory Infection Pharyngitis Viral rn Syndrome Pneumonia. Data reviewed: vital signs, nurses notes, radiologic studies, plain films, and as a result, I will discharge patient. Counseling: I had a detailed discussion with the patient and/or guardian regarding the historical points, exam findings, and any diagnostic results supporting the discharge/admit diagnosis, radiology results, the need for outpatient follow up, to return to the emergency department if symptoms worsen or persist or if there are any questions or concerns that arise at home. Special discussion: I discussed with the patient/guardian in detail that at this point there is no indication for admission to the hospital. It is understood, however, that if the symptoms persist or worsen the patient needs to return immediately for re-evaluation. 07/05 09:31 Order name: XRAY Chest (1 view); Complete Time: 11:23 rn Administered Medications: No medications were administered Disposition Summary: 07/05/24 11:24 Discharge Ordered Notes: Location: Home rn Problem: new rn Symptoms: are unchanged rn Condition: Stable rn Diagnosis - Influenza due to other identified influenza virus with other respiratory rn manifestations Followup: rn - With: Private Physician - When: As needed - Reason: Recheck today's complaints, Re-evaluation by your physician Discharge Instructions: - Discharge Summary Sheet rn - Influenza, Adult rn - Cough, Adult rn Forms: - Medication Reconciliation Form rn - Antibiotic financial services intern - Prescription Opioid Use rn - Patient Portal Instructions rn - Leadership Thank You Letter rn - Work release form kc6 Signatures: Dispatcher [employer] Mitul Adkins MD MD rn Lewis, Lynsay, RN RN ll1 Marisel Stevenson RN RN kc6
[2024-07-05 11:59] VITALS: BP 130/78; O2SAT 94
== END 2024-07-05 11:44 | disposition home or self-care (01) ==
LOC: ER 09:10
DX: J10.1 Influenza due to other identified influenza virus with other respiratory manifestations (principal); E11.9 Type 2 diabetes mellitus without complications; F17.210 Nicotine dependence, cigarettes, uncomplicated
CPT/HCPCS: 71045; 99283

== ENCOUNTER 2024-07-14 05:39 | Emergency (ER) | payer SELFPAY ==
[2024-07-14 06:12] LABS: Absolute Basophils 0.2 K/uL (0-0.5); Absolute Eosinophils 0.2 K/uL (0-0.5); Absolute Lymphocytes (CBC) 3.5 K/uL (0.7-4.9); Absolute Monocytes 0.8 K/uL (0.1-1.3); Absolute Neutrophil 5.6 K/uL (1.8-8.0); Basophils % 1.5 % (0-1.3); Eosinophils % 1.9 % (0-4.4); Hematocrit 43.6 % (39.6-49.0); Hemoglobin 15.1 g/dL (13.6-17.9); Lymphocytes % 34.5 % (15.3-44.8); MCH 29.1 pg (27.0-35.0); MCHC 34.5 g/dL (32.0-36.0); MCV 84.4 fL (80-100); MPV 7.8 fL (7.6-11.3); Monocytes % 7.5 % (3.3-12.3); Neutrophils % 54.6 % (41.7-73.7); Nucleated Red Blood Cells % 0.1 % (0-0); Platelets 449 thou/uL (152-406); RBC Red Blood Cell Count 5.17 M/uL (4.33-5.43); Red Cell Distribution Width 12.9 % (12.1-15.2)
[2024-07-14] MEDS ORDERED: MAGNES/ALUMIN/SIMET 30ML UCUP ONE (06:17)
[2024-07-14] MEDS ORDERED: LIDOCAINE VISCOUS 2% 10ML ORAL SOLN ONE (06:17)
[2024-07-14] MEDS ORDERED: NA CHLORIDE 0.9% 1,000 ML ONE (06:17)
[2024-07-14 06:23] LABS: Specific Gravity > 1.030 (1.005-1.030); Urine Bilirubin NEGATIVE (Negative); Urine Blood Negative (Negative); Urine Clarity Clear (Clear); Urine Color Light-Yellow (Yellow); Urine Glucose 4+ (Over) (Negative); Urine Ketones NEGATIVE (Negative); Urine Microscopic Reflex YN NO UMIC; Urine Nitrite NEGATIVE (Negative); Urine Protein NEGATIVE (Negative); Urine Urobilinogen Normal (Normal)
[2024-07-14 06:40] LABS: ALT/SGPT 25 U/L (16-61); Albumin 3.3 g/dL (3.4-5.0); Albumin/Globulin Ratio 0.9 (1.1-1.8); Alkaline Phosphatase 145 U/L (45-117); Anion Gap 6.7 mEq/L (5.0-15.0); BUN Blood Urea Nitrogen 6 mg/dL (7-18); Bicarbonate 28 mEq/L (21-32); Bilirubin Total 0.6 mg/dL (0.2-1.0); Globulin 3.7 g/dL (2.3-3.5); Glomerular Filtration Rate 119 ml/min (=/>90); Glucose Level 309 mg/dL (74-106); Lipase 58 U/L (13-75); Potassium 3.7 mEq/L (3.5-5.1); Sodium Level 135 mEq/L (136-145)
[2024-07-14 06:41] LABS: AST/SGOT < 10 U/L (15-37)
[2024-07-14 07:38] LABS: Blood Morphology Comment NOT SEEN (NOT SEEN); Platelet Estimate ADEQ; White Blood Cell Scan OK (OK)
--- NOTE | 2024-07-14 08:20 | RAD REPORT ---
EXAMINATION: CT Abdomen Pelvis W Contrast CLINICAL INDICATION: Male, 39 years old. ABD PAIN TECHNIQUE: CT abdomen and pelvis was performed, after the administration of IV contrast, [facility]. Axial, sagittal and coronal reconstructions were obtained. One or more of the following dose reduction techniques were used: Automated exposure control, adjustment of the mA and k V according to patient size, and iterative reconstruction. Unless otherwise specified, incidental findings do not require dedicated imaging follow-up. COMPARISON: 12/13/2021 FINDINGS: LOWER CHEST: The visualized lung bases are clear. LIVER: Normal in size and contour. No focal lesion. BILIARY SYSTEM: Status post cholecystectomy. SPLEEN: Normal size. No focal lesion. PANCREAS: No mass, ductal dilation, or lacy-pancreatic fluid. ADRENALS: Normal; no mass. KIDNEYS: Normal size and contour. No hydronephrosis. URINARY BLADDER: Unremarkable. GASTROINTESTINAL TRACT: No evidence of free air, significant intra-abdominal free fluid, bowel obstru ction or abscess. APPENDIX: Normal appendix. LYMPH NODES: No lymphadenopathy. MUSCULOSKELETAL: No acute or suspicious osseous abnormality. ADDITIONAL FINDINGS: Diastasis recti. Upper abdominal small right periumbilical hernia containing fat , measuring 8 mm and transverse diameter at the neck, stable. IMPRESSION: No acute or concerning abnormalities seen in the abdomen or pelvis. Stable findings as above.
--- NOTE | 2024-07-14 08:43 | EDPHYS ---
Physician Documentation [facility] Name: Arsalan Campbell Age: 39 yrs Sex: Male : 1985 Arrival Date: 07/14/2024 Time: 05:39 Bed 16 Private MD: ED Physician Sukumar Virk HPI: 07/14 06:00 This 39 yrs old Male presents to ER via Ambulatory with complaints of Abdominal Pain. sp3 06:00 39-year-old male with history of diabetes, cholecystectomy, prior hernia repair, sp3 presents to the ED with chief complaint generalized abdominal pain that started approximate 12:45 AM. He denies any other symptoms including fever, headache, neck pain, chest pain, shortness of breath, vomiting, diarrhea, syncope, near syncope, bleeding, rash, known sick contacts, travel history, potential bad food, or any other signs or symptoms on ROS at this time. He does endorse mild nausea.. Historical: - Allergies: 05:53 No Known Allergies; al5 - PMHx: 05:53 diabetes mellitus; al5 - PSHx: 05:53 Cholecystectomy; hernia repair; al5 - Immunization history:: Adult Immunizations up to date. - Infectious Disease History:: Denies. - Social history:: Smoking status: Patient reports the use of cigarette tobacco products, smokes one pack cigarettes per day. ROS: 06:01 Constitutional: Negative for fever, chills, and weight loss, Eyes: Negative for injury, sp3 pain, redness, and discharge, ENT: Negative for injury, pain, and discharge, Neck: Negative for injury, pain, and swelling, Cardiovascular: Negative for chest pain, palpitations, and edema, Respiratory: Negative for shortness of breath, cough, wheezing, and pleuritic chest pain, Back: Negative for injury and pain, MS/Extremity: Negative for injury and deformity, Skin: Negative for injury, rash, and discoloration, Neuro: Negative for headache, weakness, numbness, tingling, and seizure, Psych: Negative for depression, anxiety, suicide ideation, homicidal ideation, and hallucinations, Allergy/Immunology: Negative for hives, rash, and allergies, Endocrine: Negative for neck swelling, polydipsia, polyuria, polyphagia, and marked weight changes, Hematologic/Lymphatic: Negative for swollen nodes, abnormal bleeding, and unusual bruising, 06:01 All other systems are negative, Exam: 06:01 Constitutional: This is a well developed, well nourished patient who is awake, alert, sp3 and in no acute distress. Head/Face: Normocephalic, atraumatic. Eyes: Pupils equal round and reactive to light, extra-ocular motions intact. Lids and lashes normal. Conjunctiva and sclera are non-icteric and not injected. Cornea within normal limits. Periorbital areas with no swelling, redness, or edema. Neck: Trachea midline, no thyromegaly or masses palpated, and no cervical lymphadenopathy. Supple, full range of motion without nuchal rigidity, or vertebral point tenderness. No Meningismus. Chest/axilla: Normal chest wall appearance and motion. Nontender with no deformity. No lesions are appreciated. Cardiovascular: Regular rate and rhythm with a normal S1 and S2. No gallops, murmurs, or rubs. Normal PMI, no JVD. No pulse deficits. Respiratory: Lungs have equal breath sounds bilaterally, clear to auscultation and percussion. No rales, rhonchi or wheezes noted. No increased work of breathing, no retractions or nasal flaring. Back: No spinal tenderness. No costovertebral tenderness. Full range of motion. Skin: Warm, dry with normal turgor. Normal color with no rashes, no lesions, and no evidence of cellulitis. MS/ Extremity: Pulses equal, no cyanosis. Neurovascular intact. Full, normal range of motion. Neuro: Awake and alert, GCS 15, oriented to person, place, time, and situation. Cranial nerves II-XII grossly intact. Motor strength 5/5 in all extremities. Sensory grossly intact. Cerebellar exam normal. Normal gait. Psych: Awake, alert, with orientation to person, place and time. Behavior, mood, and affect are within normal limits. 06:01 Abdomen/GI: Generalized abdominal pain to palpation without peritoneal signs, rebound or guarding. Nonsurgical abdomen., Vital Signs: 05:50 BP 123 / 83; Pulse 73; Resp 18; Temp 97.7; Pulse Ox 95% on R/A; Weight 99.79 kg; Height al5 5 ft. 6 in. ; Pain 7/10; 06:00 BP 114 / 73; Pulse 67; Resp 18; Pulse Ox 94% ; al5 06:30 BP 116 / 79; Pulse 61; Resp 18; Pulse Ox 95% ; al5 08:08 BP 119 / 86; Pulse 60; Resp 17 S; Pulse Ox 96% on R/A; kc6 05:50 Body Mass Index 35.51 (99.79 kg, 167.64 cm) al5 05:50 Pain Scale: Adult al5 MDM: 05:42 Medical Screening Exam initiated sp3 06:02 Data reviewed: vital signs, nurses notes, old medical records, lab test result(s), sp3 radiologic studies. ED course: 39-year-old male with PMH above now with generalized abdominal pain. Differential diagnosis includes gastritis, reflux, functional abdominal pain, constipation, biliary pathology, colitis, appendicitis, UTI/pyelonephritis spectrum, kidney stone, among others. I am not highly suspicious of aortic pathology, sepsis, shock or cardiac pathology. Workup will include CT scan of the abdomen pelvis with IV contrast, generalized labs, UA and treatment with GI cocktail without as patient will be driving. Patient will likely be signed out to date shift physician for final reevaluation and disposition. I discussed this with the patient who is aware of the transition.. 08:42 ED course: CT to my read and interpretation does not show any appendicitis or acute jr11 abdominal disaster, patient feeling better to take Zofran and Pepcid as needed, follow-up PCP in 2 days. Patient also hyperglycemic, states he had not taking his metformin but has plenty at home.. 07/14 05:57 Order name: CBC with Diff; Complete Time: 08:37 sp3 07/14 05:57 Order name: CMP; Complete Time: 08:37 sp3 07/14 05:57 Order name: Lipase; Complete Time: 08:37 sp3 07/14 05:57 Order name: Urinalysis w/ reflexes; Complete Time: 08:37 sp3 07/14 06:06 Order name: Glucose, Ancillary Testing; Complete Time: 08:37 EDMS 07/14 06:17 Order name: CBC Smear Scan; Complete Time: 08:37 EDMS 07/14 05:57 Order name: CT Abd/Pelvis - IV Contrast Only; Complete Time: 08:37 sp3 07/14 05:57 Order name: IV Saline Lock; Complete Time: 05:57 sp3 07/14 05:57 Order name: Labs collected and sent; Complete Time: 05:57 sp3 Administered Medications: 06:21 Drug: NS 0.9% IV 1000 ml IV at 1 bolus Per protocol; to be given as a bolus over 60 al5 minutes Route: IV; Rate: 1 bolus; Site: left antecubital; 07:10 Follow up: Response: No adverse reaction; IV Status: Completed infusion; IV Intake: kc6 1000ml 06:21 Drug: GI Cocktail without - (Maalox PO 30 ml, Lidocaine Mucous Membrane 2 % 15 al5 ml) PO once Route: PO; 07:10 Follow up: Response: No adverse reaction kc6 Disposition Summary: 07/14/24 08:43 Discharge Ordered Notes: Location: Home [facility] Condition: Stable [facility] Diagnosis - Abdominal pain, Generalized jr11 - Hyperglycemia, unspecified jr11 Discharge Instructions: - Abdominal Pain, Adult jr11 - Discharge Summary Sheet kc6 Forms: - Medication Reconciliation Form jr11 - Antibiotic Education jr11 - Prescription Opioid Use jr11 - Patient Portal Instructions jr11 - Leadership Thank You Letter jr11 - Work release form kc6 Prescriptions: - Zofran 4 mg Oral Tablet - take 1 tablet ORAL route every 12 hours As needed; 20 tablet; Refills: 0, jr11 Product Selection Permitted - Pepcid 20 mg Oral Tablet - take 1 tablet ORAL route once daily; 20 tablet; Refills: 0, Product Selection jr11 Permitted Signatures: Dispatcher [employer] EDMS Sami Kirk MD MD sp3 Sukumar Virk MD MD jr11 Archana Monte RN RN al5 Marisel Stevenson RN kc6 Corrections: (The following items were deleted from the chart) 05:57 05:57 Abdomen Pelvis W Con+CT.RAD.BRZ ordered. EDMS EDMS
--- NOTE | 2024-07-14 08:43 | ER ---
Nurse's Notes [facility] Name: Arsalan Campbell Age: 39 yrs Sex: Male : 1985 Arrival Date: 07/14/2024 Time: 05:39 Bed 16 Private MD: Diagnosis: Abdominal pain, Generalized;Hyperglycemia, unspecified Presentation: 07/14 05:50 Chief complaint: Patient states: c/o umbilical abdominal pain and nausea since 1300 al5 yesterday, states it is a 10/12. Coronavirus screen: At this time, the client does not indicate any symptoms associated with coronavirus-19. Ebola Screen: No symptoms or risks identified at this time. Initial Sepsis Screen: Does the patient meet any 2 criteria? No. Patient's initial sepsis screen is negative. Does the patient have a suspected source of infection? No. Patient's initial sepsis screen is negative. Risk Assessment: Do you want to hurt yourself or someone else? Patient reports no desire to harm self or others. Onset of symptoms was July 13, 2024. 05:50 Method Of Arrival: Ambulatory al5 05:50 Acuity: BURKE 3 al5 05:52 Care prior to arrival: Medication(s) given: pepto. al5 Triage Assessment: 05:52 General: Appears in no apparent distress. comfortable, Behavior is calm, cooperative. al5 Pain: Complains of pain in umbilical area Pain currently is 7 out of 10 on a pain scale. Alleviated by medications. EENT: No signs and/or symptoms were reported regarding the EENT system. Neuro: Level of Consciousness is awake, alert, obeys commands, Oriented to person, place, time, situation. Cardiovascular: Capillary refill < 3 seconds Patient's skin is warm and dry. Respiratory: Airway is patent Respiratory effort is even, unlabored, Respiratory pattern is regular, symmetrical. GI: Abdomen is round non-distended, Reports lower abdominal pain, upper abdominal pain, nausea. : No signs and/or symptoms were reported regarding the genitourinary system. Derm: Skin is intact, is healthy with good turgor, Skin is pink, warm \T\ dry. normal. Musculoskeletal: No signs and/or symptoms reported regarding the musculoskeletal system. Historical: - Allergies: 05:53 No Known Allergies; al5 - PMHx: 05:53 diabetes mellitus; al5 - PSHx: 05:53 Cholecystectomy; hernia repair; al5 - Immunization history:: Adult Immunizations up to date. - Infectious Disease History:: Denies. - Social history:: Smoking status: Patient reports the use of cigarette tobacco products, smokes one pack cigarettes per day. Screenin:54 [facility] ED Fall Risk Assessment (Adult) History of falling in the last 3 months, al5 including since admission No falls in past 3 months (0 pts) Confusion or Disorientation No (0 pts) Intoxicated or Sedated No (0 pts) Impaired Gait No (0 pts) Mobility Assist Device Used No (0 pt) Altered Elimination No (0 pt) Score/Fall Risk Level 0 - 2 = Low Risk Oriented to surroundings, Maintained a safe environment, Hourly rounding (assess needs \T\ fall precautionary measures) done. Abuse screen: Denies threats or abuse. Denies injuries from another. Nutritional screening: No deficits noted. Tuberculosis screening: No symptoms or risk factors identified. Assessment: 05:54 Reassessment: see triage assessment. al5 05:54 GI: Bowel sounds present X 4 quads. Abd is soft X 4 quads Abdomen is tender to al5 palpation in umbilical area. 06:59 Reassessment: Patient appears in no apparent distress at this time. No changes from al5 previously documented assessment. Patient and/or family updated on plan of care and expected duration. Pain level reassessed. Patient is alert, oriented x 3, equal unlabored respirations, skin warm/dry/pink. 07:59 Reassessment: Patient appears in no apparent distress at this time. No changes from kc6 previously documented assessment. Patient and/or family updated on plan of care and expected duration. Pain level reassessed. Patient is alert, oriented x 3, equal unlabored respirations, skin warm/dry/pink. Vital Signs: 05:50 BP 123 / 83; Pulse 73; Resp 18; Temp 97.7; Pulse Ox 95% on R/A; Weight 99.79 kg; Height al5 5 ft. 6 in. ; Pain 7/10; 06:00 BP 114 / 73; Pulse 67; Resp 18; Pulse Ox 94% ; al5 06:30 BP 116 / 79; Pulse 61; Resp 18; Pulse Ox 95% ; al5 08:08 BP 119 / 86; Pulse 60; Resp 17 S; Pulse Ox 96% on R/A; kc6 05:50 Body Mass Index 35.51 (99.79 kg, 167.64 cm) al5 05:50 Pain Scale: Adult al5 ED Course: 05:40 Patient arrived in ED. jj6 05:40 Sami Kirk MD is Attending Physician. sp3 05:50 Arcahna Monte, RN is Primary Nurse. al5 05:51 Triage completed. al5 05:53 Arm band placed on right wrist. Patient placed in the treatment room, in view of staff al5 members, on pulse oximetry. 05:54 Patient has correct armband on for positive identification. Bed in low position. Call al5 light in reach. Side rails up X2. Provided Education on: plan of care. 05:54 No provider procedures requiring assistance completed. al5 05:57 Inserted saline lock: 20 gauge in left antecubital area, using aseptic technique. Blood af3 collected. Flushed with 10 mL NS. 07:00 Report received from Archana Louie RN. kc6 07:00 Pulse ox on. NIBP on. Door closed. Noise minimized. Lights dimmed. Warm blanket given. kc6 Pillow given. Verbal reassurance given. 07:21 Primary Nurse role handed off by Archana Monte RN eb 07:28 CT Abd/Pelvis - IV Contrast Only In Process Unspecified. EDMS 08:04 Attending Physician role handed off by Sami Kirk MD jr11 08:04 Sukumar Virk MD is Attending Physician. jr11 08:08 Marisel Stevenson, VANESSA is Primary Nurse. kc6 09:00 IV discontinued, intact, bleeding controlled, No redness/swelling at site. Pressure kc6 dressing applied. Administered Medications: 06:21 Drug: NS 0.9% IV 1000 ml IV at 1 bolus Per protocol; to be given as a bolus over 60 al5 minutes Route: IV; Rate: 1 bolus; Site: left antecubital; 07:10 Follow up: Response: No adverse reaction; IV Status: Completed infusion; IV Intake: kc6 1000ml 06:21 Drug: GI Cocktail without - (Maalox PO 30 ml, Lidocaine Mucous Membrane 2 % 15 al5 ml) PO once Route: PO; 07:10 Follow up: Response: No adverse reaction kc6 Medication: 05:54 VIS not applicable for this client. al5 Intake: 07:10 IV: 1000ml; Total: 1000ml. kc6 Outcome: 08:43 Discharge ordered by . 11 09:00 Discharged to home ambulatory, kc6 09:00 Condition: improved 09:00 Discharge instructions given to patient, Instructed on discharge instructions, follow up and referral plans. medication usage, Demonstrated understanding of instructions, follow-up care, medications, Prescriptions given X 2, 09:00 Patient left the ED. kc6 Signatures: Dispatcher [employer] EDMS Barbara Lopez Setul, MD MD sp3 Lynn Menjivar6 Sukumar Virk MD MD jr11 Marisel Stevenson RN RN kc6 Archana Monte RN RN al5 Juliana Asencio af3
[2024-07-14 09:11] VITALS: TEMP 97.7
[2024-07-14 09:28] VITALS: BP 119/86; O2SAT 96
== END 2024-07-14 09:00 | disposition home or self-care (01) ==
LOC: ER 05:39
DX: R10.84 Generalized abdominal pain (principal); E11.65 Type 2 diabetes mellitus with hyperglycemia
CPT/HCPCS: 36415; 74177; 80053; 81003; 82947; 83690; 85025; 96360; 99284; J7030; Q9967